=== PATIENT | male | born 1945 | race Caucasian/White ===

== ENCOUNTER → 2016-04-18 | Outpatient (CLI) | payer MEDICARE | LOC: OD 09:49 | PROVIDERS: ATTEND Family Medicine | DX: M50.30 Other cervical disc degeneration, unspecified cervical region (principal); R06.09 Other forms of dyspnea | CPT/HCPCS: 71020; 72050 ==

== ENCOUNTER 2016-04-26 08:32 | Emergency (ER) | payer OTHER, MEDICARE, MEDICAID ==
[2016-04-26] MEDS ORDERED: NORMAL SALINE 1000 ML 1,000 ML IV ONE (09:40)
[2016-04-26] MEDS ORDERED: FAMOTIDINE INJ/PF 20 MG/2 ML SDV IV ONE (09:43)
[2016-04-26] MEDS ORDERED: ONDANSETRON HCL INJ/PF 4 MG/2 ML SDV IV ONE (09:43)
[2016-04-26 09:54] LABS: ABSOLUTE LYMPHOCYTES (AUTO) 1.3 10^3/uL (0.5-4.7); ABSOLUTE MONOCYTES (AUTO) 1.1 10^3/uL (0.1-1.4); BASOPHILS % (AUTO) 0.2 % (0-2); EOSINOPHILS % (AUTO) 0.1 % (0-6); HEMATOCRIT 43.4 % (37.9-51.0); HEMOGLOBIN 14.7 g/dL (13.5-17.0); HGB HCT DIFFERENCE 0.7; LYMPHOCYTES % (AUTO) 8.4 % (13-45); MEAN CORPUSCULAR HEMOGLOBIN 31.8 pg (27.0-33.4); MEAN CORPUSCULAR HGB CONC 33.8 g/dL (32.0-36.0); MEAN CORPUSCULAR VOLUME 94 fl (80-97); MONOCYTES % (AUTO) 7.1 % (3-13); RED BLOOD COUNT 4.61 10^6/uL (4.35-5.55); RED CELL DISTRIBUTION WIDTH 13.5 % (11.5-14.0); SEGMENTED NEUTROPHILS % (AUTO) 84.2 % (42-78); WHITE BLOOD COUNT 15.5 10^3/uL (4.0-10.5)
[2016-04-26 09:57] LABS: APPEARANCE,URINE CLEAR; BILIRUBIN,URINE NEGATIVE (NEGATIVE); GLUCOSE, URINE NEGATIVE (NEGATIVE); KETONES,URINE NEGATIVE (NEGATIVE); LEUKOCYTE ESTERASE,URINE NEGATIVE (NEGATIVE); NITRITE,URINE NEGATIVE (NEGATIVE); PROTEIN,URINE NEGATIVE (NEGATIVE); URINE SPECIFIC GRAVITY 1.009; UROBILINOGEN,URINE NEGATIVE mg/dL (<2.0)
[2016-04-26 10:07] LABS: ALANINE AMINOTRANSFERASE 40 U/L (21-72); ALBUMIN 3.9 g/dL (3.5-5.0); ALKALINE PHOSPHATASE 138 U/L (38-126); ANION GAP 13 (5-19); ASPARTATE AMINO TRANSFERASE 29 U/L (17-59); BILIRUBIN,TOTAL 0.9 mg/dL (0.2-1.3); BLOOD UREA NITROGEN 10 mg/dL (7-20); CALCIUM 10.8 mg/dL (8.4-10.2); CARBON DIOXIDE 26 mmol/L (22-30); CHLORIDE 100 mmol/L (98-107); CREATININE RESULT 0.89 mg/dL (0.52-1.25); GLUCOSE 111 mg/dL (75-110); LIPASE 431.6 U/L (23-300); POTASSIUM 4.9 mmol/L (3.6-5.0); SODIUM 138.8 mmol/L (137-145); TOTAL PROTEIN 7.1 g/dL (6.3-8.2)
[2016-04-26 10:08] LABS: ALCOHOL < 10 mg/dL (NONE DETECTED)
[2016-04-26 10:15] LABS: URINE BARBITURATES SCREEN NEGATIVE; URINE METHADONE SCREEN NEGATIVE; URINE OPIATES LOW UNCONFIRMED POSITIVE; URINE PHENCYCLIDINE SCREEN NEGATIVE
[2016-04-26] MEDS ORDERED: SUCRALFATE SUSP 1 GM/10 ML UDCUP PO ONE (11:40)
--- NOTE | 2016-04-26 11:49 | ER Document Report ---
ED General - General Chief Complaint: Abdominal Pain Stated Complaint: STOMACH CONCERNS TRAVEL OUTSIDE OF THE [place] IN LAST 30 DAYS: No - HPI Patient complains to provider of: abdominal pain Notes: Patient coming in for evaluation arrival quadrant epigastric abdominal pain. Patient has a history gastric cultures and had an upper GI scope performed in February showed multiple gastric erosions and duodenitis gastritis. More likely this was noted to the patient buckner chronic alcohol use. Patient states today that he now drinks only 3 beers a day states he did drink last night but does have increased epigastric right upper quadrant pain. Patient denies any hematemesis denies any melenic stools dark stools. Patient currently is on Protonix states that he is currently running out of his medication. Otherwise patient denies any fevers chills nausea vomiting diarrhea. - Related Data Allergies/Adverse Reactions: No Known Allergies Allergy (Verified 04/26/16 08:45) Past Medical History - Social History Smoking Status: Current Every Day Smoker Chew tobacco use (# tins/day): No Frequency of alcohol use: daily Drug Abuse: None Family History: CAD, Malignancy Patient has suicidal ideation: No Patient has homicidal ideation: No - Past Medical History Cardiac Medical History: Reports: Hx Hypercholesterolemia, Hx Hypertension Pulmonary Medical History: Reports: Hx Bronchitis Denies: Hx Tuberculosis Neurological Medical History: Denies: Hx Seizures Renal/ Medical History: Reports: Hx Benign Prostatic Hyperplasia. 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 - Immunizations Immunizations up to date: Yes Hx Diphtheria, Pertussis, Tetanus Vaccination: No Review of Systems - Review of Systems Constitutional: No symptoms reported EENT: No symptoms reported Cardiovascular: No symptoms reported Respiratory: No symptoms reported Gastrointestinal: Abdominal pain Genitourinary: No symptoms reported Male Genitourinary: No symptoms reported Musculoskeletal: No symptoms reported Skin: No symptoms reported Hematologic/Lymphatic: No symptoms reported Neurological/Psychological: No symptoms reported -: Yes All other systems reviewed and negative Physical Exam - Vital signs Vitals: Temp Pulse Resp BP Pulse Ox 98.5 F 73 20 129/67 H 99 04/26/16 08:41 04/26/16 08:41 04/26/16 08:41 04/26/16 08:41 04/26/16 08:41 Interpretation: Normal - General General appearance: Appears well, Alert - HEENT Head: Normocephalic, Atraumatic Eyes: Normal Pupils: PERRL - Respiratory Respiratory status: No respiratory distress Chest status: Nontender Breath sounds: Normal Chest palpation: Normal - Cardiovascular Rhythm: Regular Heart sounds: Normal auscultation Murmur: No - Abdominal Inspection: Normal Distension: No distension Bowel sounds: Normal Tenderness: Tender - Mild right upper quadrant epigastric tenderness no guarding or rebound. No: McBurney's point, Asencio's sign, Guarding, Rebound Organomegaly: No organomegaly - Back Back: Normal, Nontender - Extremities General upper extremity: Normal inspection, Nontender, Normal color, Normal ROM , Normal temperature General lower extremity: Normal inspection, Nontender, Normal color, Normal ROM , Normal temperature, Normal weight bearing. No: Edd's sign - Neurological Neuro grossly intact: Yes Cognition: Normal Orientation: AAOx4 [place] Coma Scale Eye Opening: Spontaneous [place] Coma Scale Verbal: Oriented [place] Coma Scale Motor: Obeys Commands Alleg[place] Coma Scale Total: 15 Speech: Normal Motor strength normal: LUE, RUE, LLE, RLE Sensory: Normal - Psychological Associated symptoms: Normal affect, Normal mood - Skin Skin Temperature: Warm Skin Moisture: Dry Skin Color: Normal Course - Re-evaluation Re-evalutation: 04/26/16 15:12 Patient had acute abdominal series performed looking for signs free air suggestive of perforation. This was negative. Patient feeling better after he was given passive. Long discussion with patient and family at bedside and reevaluated the patient's need to stop drinking alcohol to gradually taper this down to avoid withdrawals also encouraged patient to avoid foods will cause more GI distress. Patient stated understanding. We'll continue to treat patient with Protonix will also add Carafate. Patient was encouraged follow-up with primary care physician GI referral was also given to the patient. Patient discharged - Vital Signs Vital signs: Temp Pulse Resp BP Pulse Ox 100 F 69 21 H 107/63 96 04/26/16 12:20 04/26/16 12:20 04/26/16 10:01 04/26/16 12:20 02/01/17 12:20 - Laboratory Result Diagrams: 04/26/16 09:30 04/26/16 09:30 Laboratory results interpreted by me: 04/26/16 04/26/16 09:30 09:30 WBC 15.5 H Seg Neutrophils % 84.2 H Lymphocytes % 8.4 L Absolute Neutrophils 13.0 H Glucose 111 H Calcium 10.8 H Alkaline Phosphatase 138 H Lipase 431.6 H Discharge - Discharge Clinical Impression: Alcohol abuse, Epigastric abdominal pain Gastric ulcer Qualifiers: Gastric ulcer chronicity: chronic Gastric ulcer complication status: without hemorrhage or perforation Qualified Code(s): K25.7 - Chronic gastric ulcer without hemorrhage or perforation Condition: Good Disposition: HOME, SELF-CARE Instructions: Abdominal Pain ([facility]), Low-Fat Diet ([facility]), Ulcer ([facility]), Gastroenterology Additional Instructions: Please follow-up with your primary care physician. Please take the medication prescribed. Please abstain from alcohol I would recommend a clear liquid diet for the next 24 hours. Return to the ER symptoms worsen. Prescriptions: Pantoprazole Sodium [Protonix] 40 mg PO BID #60 tablet. Sucralfate [Carafate 1 gm Tablet] 1 gm PO ACHS #120 tablet Referrals: GEORGE GAYTAN DO [Primary Care Provider] - Follow up in 3-5 days
[2016-04-26 12:21] VITALS: BP 107/63
== END 2016-04-26 12:29 | disposition home or self-care (01) ==
LOC: ER 08:32
DX: F10.10 Alcohol abuse, uncomplicated (principal); R10.13 Epigastric pain; K25.7 Chronic gastric ulcer without hemorrhage or perforation; F17.200 Nicotine dependence, unspecified, uncomplicated; E78.00 Pure hypercholesterolemia, unspecified; I10 Essential (primary) hypertension; K21.9 Gastro-esophageal reflux disease without esophagitis
CPT/HCPCS: 99284; 96361; 96374; 96375; 36415; 80307 ×2; 83690; 85025; 80053; 81001; 83605; 74022; J2405; J7030; S0028

== ENCOUNTER 2017-03-25 15:06 | Emergency (ER) | payer OTHER, MEDICARE, MEDICAID ==
--- NOTE | 2017-03-25 15:44 | ER Document Report ---
ED Medical Screen (RME) - General Chief Complaint: Abdominal Distention Stated Complaint: STOMACH PAIN Time Seen by Provider: 03/25/17 15:41 Notes: 71-year-old male patient history alcoholic pancreatitis. Reports abdominal pain for the past 24 hours. Pain is diffuse across his abdomen and some sharp in the right lateral side. States she had normal bowel movement this morning. There is no nausea vomiting or fever. I have greeted and performed a rapid initial assessment of this patient. A comprehensive ED assessment and evaluation of the patient, analysis of test results and completion of the medical decision making process will be conducted by additional ED providers. TRAVEL OUTSIDE OF THE [place] IN LAST 30 DAYS: No - Related Data Allergies/Adverse Reactions: No Known Allergies Allergy (Verified 03/25/17 15:07) Past Medical History - Past Medical History Cardiac Medical History: Reports: Hx Hypercholesterolemia, Hx Hypertension Pulmonary Medical History: Reports: Hx Bronchitis Denies: Hx Tuberculosis Neurological Medical History: Denies: Hx Seizures Renal/ Medical History: Reports: Hx Benign Prostatic Hyperplasia. 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
[2017-03-25 16:42] LABS: ABSOLUTE EOSINOPHILS # (AUTO) 0.1 10^3/uL (0.0-0.6); ABSOLUTE LYMPHOCYTES (AUTO) 2.4 10^3/uL (0.5-4.7); ABSOLUTE MONOCYTES (AUTO) 0.9 10^3/uL (0.1-1.4); ABSOLUTE NEUT (AUTO) 6.7 10^3/uL (1.7-8.2); BASOPHILS % (AUTO) 0.4 % (0-2); EOSINOPHILS % (AUTO) 0.8 % (0-6); HEMATOCRIT 45.7 % (37.9-51.0); HEMOGLOBIN 15.9 g/dL (13.5-17.0); LYMPHOCYTES % (AUTO) 23.4 % (13-45); MEAN CORPUSCULAR HEMOGLOBIN 32.1 pg (27.0-33.4); MEAN CORPUSCULAR HGB CONC 34.8 g/dL (32.0-36.0); MEAN CORPUSCULAR VOLUME 92 fl (80-97); MONOCYTES % (AUTO) 8.8 % (3-13); PLATELET COUNT 186 10^3/uL (150-450); RED BLOOD COUNT 4.95 10^6/uL (4.35-5.55); RED CELL DISTRIBUTION WIDTH 13.7 % (11.5-14.0); SEGMENTED NEUTROPHILS % (AUTO) 66.6 % (42-78); TOTAL CELLS COUNTED % (AUTO) 100 %; WHITE BLOOD COUNT 10.1 10^3/uL (4.0-10.5)
[2017-03-25 16:55] LABS: APPEARANCE,URINE CLEAR; BILIRUBIN,URINE NEGATIVE (NEGATIVE); COLOR,URINE YELLOW; GLUCOSE, URINE NEGATIVE (NEGATIVE); KETONES,URINE NEGATIVE (NEGATIVE); LEUKOCYTE ESTERASE,URINE NEGATIVE (NEGATIVE); NITRITE,URINE NEGATIVE (NEGATIVE); PROTEIN,URINE NEGATIVE (NEGATIVE); URINE SPECIFIC GRAVITY 1.004; UROBILINOGEN,URINE NEGATIVE mg/dL (<2.0)
[2017-03-25 17:03] LABS: ALANINE AMINOTRANSFERASE 150 U/L (21-72); ALBUMIN 4.4 g/dL (3.5-5.0); ALKALINE PHOSPHATASE 181 U/L (38-126); ANION GAP 10 (5-19); ASPARTATE AMINO TRANSFERASE 103 U/L (17-59); BILIRUBIN,DIRECT 0.5 mg/dL (0.0-0.4); BILIRUBIN,TOTAL 1.4 mg/dL (0.2-1.3); BLOOD UREA NITROGEN 15 mg/dL (7-20); CALCIUM 11.2 mg/dL (8.4-10.2); CARBON DIOXIDE 32 mmol/L (22-30); CHLORIDE 97 mmol/L (98-107); GLUCOSE 96 mg/dL (75-110); LIPASE 721.5 U/L (23-300); MAGNESIUM 2.1 mg/dL (1.6-2.3); POTASSIUM 4.3 mmol/L (3.6-5.0); SODIUM 139.4 mmol/L (137-145); TOTAL PROTEIN 7.6 g/dL (6.3-8.2)
[2017-03-25] MEDS ORDERED: LIDOCAINE 2% VISCOUS SOLN 20 ML UDCUP PO ONE (17:18)
[2017-03-25] MEDS ORDERED: SUCRALFATE SUSP 1 GM/10 ML UDCUP PO ONE (17:18)
[2017-03-25] MEDS ORDERED: MAG HYDROX/AL HYDROX/SIMETH SUSP 30 ML UDCUP PO ONE (17:18)
--- NOTE | 2017-03-25 17:19 | ER Document Report ---
ED GI/ - General Chief Complaint: Abdominal Distention Stated Complaint: STOMACH PAIN Time Seen by Provider: 03/25/17 15:41 Notes: Patient is a 71-year-old male presents emergency department complaining of epigastric pain for the past 24 hours. Describes his pain as a burning constant pain in his stomach that does not radiate into his right upper quadrant or into his back. Patient is a chronic alcoholic and drinks approximately 4 to 5 beers a day Past medical history significant for pancreatitis, duodenal gastritis. Today he denies any fever, chills, nausea, vomiting, hematemesis, coffee-ground emesis. Admits to normal bowel movements without any diarrhea. Denies any bright red blood per rectum, dark tarry stools or constipation. He denies any belching or increased flatulence. States that he is supposed to be taking Nexium and Carafate at home but is been noncompliant. Follows with Dr. Hamilton for primary care. TRAVEL OUTSIDE OF THE [place] IN LAST 30 DAYS: No - Related Data Allergies/Adverse Reactions: No Known Allergies Allergy (Verified 03/25/17 15:07) Past Medical History - Social History Smoking Status: Current Every Day Smoker Frequency of alcohol use: 4 beers a day Drug Abuse: None Family History: CAD, Malignancy Patient has suicidal ideation: No Patient has homicidal ideation: No - Past Medical History Cardiac Medical History: Reports: Hx Hypercholesterolemia, Hx Hypertension Pulmonary Medical History: Reports: Hx Bronchitis Denies: Hx Tuberculosis Neurological Medical History: Denies: Hx Seizures Renal/ Medical History: Reports: Hx Benign Prostatic Hyperplasia. 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 LUNGS: Clear to auscultation bilaterally, no wheezes, rales, or rhonchi. No respiratory distress. HEART: Regular rate and rhythm. No murmurs, gallops, or rubs. ABDOMEN: Soft, nondistended, nontender. No guarding, rebound, or rigidity.. Bowel sounds present in all 4 quadrants. EXTREMITIES: Moves all 4 extremities spontaneously. No edema, radial and dorsalis pedis pulses 2/4 bilaterally. No cyanosis. NEUROLOGICAL: Alert and oriented x4. Normal speech. PSYCH: Normal affect, normal mood. SKIN: Warm, dry, normal turgor. No rashes or lesions noted. Course - Re-evaluation Re-evalutation: 03/25/17 19:17 Patient is a 71-year-old male who is hemodynamically stable, no acute distress and afebrile. Presentation today is consistent with gastritis given complete resolution of his symptoms after GI cocktail. Mild elevation in his lipase to 720. At this time, patient is tolerating p.o. without any difficulty and is pain-free. Does not meet inpatient criteria for pancreatitis at this time. Will discharge home with instructions to continue a clear liquid diet for the next 3 days and to follow-up with Dr. Hamilton this week. Patient agrees with plan and is stable for discharge home. - Vital Signs Vital signs: Temp Pulse Resp BP Pulse Ox 99.1 F 65 18 146/70 H 97 03/25/17 15:36 03/25/17 15:36 03/25/17 15:36 03/25/17 15:36 03/25/17 15:36 - Laboratory Result Diagrams: 03/25/17 16:18 03/25/17 16:18 Laboratory results interpreted by me: 03/25/17 03/25/17 16:18 16:18 Chloride 97 L Carbon Dioxide 32 H Creatinine 1.26 H Est GFR (Non-Af Amer) 57 L Calcium 11.2 H Total Bilirubin 1.4 H Direct Bilirubin 0.5 H AST 103 H ALT 150 H Alkaline Phosphatase 181 H Lipase 721.5 H Urine Blood SMALL H Discharge - Discharge Clinical Impression: Elevated lipase, Reflux gastritis Condition: Good Disposition: HOME, SELF-CARE Additional Instructions: Your presentation today is consistent with gastritis as well as mild pancreatitis likely related to your alcohol consumption. It is indicated for you to stop drinking alcohol for it causes irritation of these areas. Please do not stop drinking all at once he should do a gentle decline over the course of a couple of weeks to prevent rapid withdrawal. Over the next couple of days please do a clear liquid diet to allow for your pancreas to rest and heal. Please take your medications as directed and follow-up with her primary care doctor. Please return to the emergency department with any fever, chills, difficulty tolerating anything p.o., any vomit that looks like what coffee grounds or bright red blood. Prescriptions: Sucralfate [Carafate 1 gm Tablet] 1 gm PO ACHS #120 tablet Referrals: GEORGE HAMILTON DO [Primary Care Provider] - 03/30/17
--- NOTE | 2017-03-25 17:20 | RADIOLOGY REPORT (SQ) ---
EXAM DESCRIPTION: ACUTE ABDOMEN SERIES COMPLETED DATE/TIME: 03/25/2017 4:39 pm REASON FOR STUDY: Abdominal pain and swelling,PMH of pancreatitis COMPARISON: April 2016 NUMBER OF VIEWS: Three views. TECHNIQUE: Frontal chest, supine abdomen and upright/decubitus abdomen radiographic images acquired. LIMITATIONS: None. FINDINGS: CHEST: Ill-defined densities are identified along the left lateral chest wall which I mary ot exclude is pleural thickening. Remaining lung arana are clear P FREE AIR: None. No abnormal gas collections. BOWEL GAS PATTERN: Nonobstructive pattern. No dilated loops or air fluid levels. CALCIFICATIONS: No suspicious calcifications. HARDWARE: None in the abdomen. SOFT TISSUES: No gross mass or suggestion of organomegaly. BONES: No acute fracture. No worrisome bone lesions. OTHER: No other significant finding. IMPRESSION: NO RADIOGRAPHIC EVIDENCE FOR ACUTE ABDOMINAL DISEASE. Ill-defined densities along the l eft lateral chest wall which I cannot exclude is a pleural-based process. Other findings as noted ab jaye TECHNICAL DOCUMENTATION: JOB ID: [id number] [employer]- All Rights Reserved
[2017-03-25 19:27] VITALS: BP 131/67
== END 2017-03-25 19:33 | disposition home or self-care (01) ==
LOC: ER 15:06
DX: K29.60 Other gastritis without bleeding (principal); R79.89 Other specified abnormal findings of blood chemistry; K31.89 Other diseases of stomach and duodenum; R10.13 Epigastric pain; F17.200 Nicotine dependence, unspecified, uncomplicated
CPT/HCPCS: 99284; 36415; 83690; 83735; 85025; 80053; 81001; 74022; J3490

== ENCOUNTER → 2017-07-17 | Outpatient (CLI) | payer MEDICARE, MEDICAID ==
--- NOTE | 2017-07-20 08:20 | XCELERA REPORT ---
[address] [address] Lower Extremity Arterial Evaluation Name: HOLLI PANDEY Age: 71 yrs Gender: Male : 1945 Patient Status: Outpatient Patient Location: Study Date: 07/17/2017 08:26 AM Procedure: A color flow and duplex scan of the lower extremity arteries was performed bilaterally with velocity and waveform anaylsis. Ankle brachial indicies performed. Reason For Study: PVD Ordering Physician: EILEEN JON Performed By: Tim Eli Measurements and Calculations Right Left ACCOUNTING MANAGER ASSISTANT CONTROLLER PSV 135.1 143.9 cm/sec Prox PFA PSV -133.6 -202.3 cm/sec Prox SFA PSV 148.5 124.5 cm/sec Mid SFA PSV -116.9 -123.8 cm/sec Dist SFA PSV -81.6 -65.5 cm/sec Prox Pop A PSV 133.4 105.0 cm/sec Dist JERRY PSV 48.8 46.0 cm/sec Dist SENIOR CORPORATE ACCOUNTANT PSV -54.2 49.3 cm/sec Malcolm Pedis PSV 13.0 72.7 cm/sec Right Side Arterial Evaluation Normal velocity and triphasic waveforms noted from the Common Femoral artery to the Posterior Tibial. Biphasic in the Deep Femoral and at the Anterior Tibial artery . Monophasic Dorsalis Pedis. 0-19% stenosis at the Deep Femoral and Anterior Tibial artery. With sequential disease. Ankle Brachial index is 0.9. Left Side Arterial Evaluation Normal velocity and triphasic waveforms noted from the Common Femoral artery to the Femoral. Biphasic in the Deep Femoral and to the infrageniculate vessels. 0-19% stenosis at the Popliteal artery. Ankle Brachial index is 0.9. Interpretation Summary Mild hemodynamically significant lesions in the bilateral lower extremities, on duplex imaging, at rest. : EILEEN JON > Eileen Jon
== END ==
LOC: SP 08:11
PROVIDERS: ATTEND Surgery
DX: I73.9 Peripheral vascular disease, unspecified (principal)
CPT/HCPCS: 93925

== ENCOUNTER → 2017-09-17 | Outpatient (CLI) | payer OTHER ==
--- NOTE | 2017-09-17 10:17 | RADIOLOGY REPORT (SQ) ---
EXAM DESCRIPTION: CT LUNG CANCER SCREENING COMPLETED DATE/TIME: 09/17/2017 8:52 am REASON FOR STUDY: CURRENT SMOKER Has the patient had a Chest CT scan within the past year? Was the patient offered tobacco cessation counseling? Was the patient engaged in shared decision making for this test? Does the patient have signs or symptoms of Lung Cancer? Is the patient a smoker? How many packs per year? How many years since quitting smoking? Patients age: COMPARISON: None. TECHNIQUE: Low Dose CT scan performed of the chest without intravenous contrast for purposes of scre ening for lung cancer. Images reviewed with lung, soft tissue and bone windows. Reconstructed coron al and sagittal MPR images reviewed. All images stored on PACS. All CT scanners at this facility use dose modulation, iterative reconstruction, and/or weight based d osing when appropriate to reduce radiation dose to as low as reasonably achievable (ALARA). [facility]: Dose Right [facility]: CareDose [facility]: Dose Right [facility]: Teradose 4D [facility]: [employer] RADIATION DOSE: CT Rad equipment meets quality standard of care and radiation dose reduction techniq ues were employed. CTDIvol: 2.1 mGy. DLP: 73 mGy-cm. mGy. . LIMITATIONS: No technical limitations. FINDINGS: LUNG NODULES: None REMAINING LUNGS AND PLEURA: Extensive apical pleural scarring and scattered areas of pleural thick ening. No pneumothorax. No scarring or interstitial changes. HILAR AND MEDIASTINAL STRUCTURES: No identified masses. No abnormal nodes. HEART AND VASCULAR STRUCTURES: No aortic aneurysm. No pericardial effusion. No cardiac devices. CORONARY ARTERY CALCIFICATIONS: Marked calcifications. UPPER ABDOMEN, THYROID, BONES, OTHER SOFT TISSUES: No significant findings. IMPRESSION: BENIGN FINDINGS IN THE LUNGS. OTHER FINDINGS ABOVE. LUNGRADS: LUNGRADS: 2 BENIGN APPEARANCE OR BEHAVIOR. NODULES WITH A VERY LOW LIKELIHOOD OF BECOMING A CLINICALLY ACTIVE CANCER DUE TO SIZE OR LACK OF GROWTH. MODIFIER: S CLINICALLY SIGNIFICANT OR POTENTIALLY CLINICALLY SIGNIFICANT FINDINGS. (non lung cancer) RECOMMENDATION: Continue annual screening with LDCT in 12 months. COMMENT: CRITERIA: Solid nodule(s): < 6 mm; new < 4 mm. Part solid nodule(s): < 6 mm total diameter on baseline screening. Non solid nodule(s) (GGN): < 20 mm OR ? 20 and unchanged or slowly growing. Category 3 or 4 modules unchanged for ? 3 months. TECHNICAL DOCUMENTATION: JOB ID: [id number] Quality ID # [id number]: Final reports with documentation of one or more dose reduction techniques (e.g., Au tomated exposure control, adjustment of the mA and/or kV according to patient size, use of iterative reconstruction technique) 2010 [facility] Radiology Reading location - IP/workstation name: [email or web address]
--- NOTE | 2017-09-17 10:18 | RADIOLOGY REPORT (SQ) ---
EXAM DESCRIPTION: U/S ABD AORTIC SCREENING COMPLETED DATE/TIME: 09/17/2017 8:58 am REASON FOR STUDY: CURRENT SMOKER COMPARISON: 2015 TECHNIQUE: Static and dynamic grayscale images acquired of the aorta and stored on PACs. Selected co ammy Doppler and spectral images recorded. LIMITATIONS: None. FINDINGS: AORTIC CALIBER MAXIMAL PROXIMAL: 2.0 cm. MID: 1.8 cm. DISTAL: 1.9 cm. ILIAC DIAMETER Not visualize OTHER: No other significant finding. IMPRESSION: NO ABDOMINAL AORTIC ANEURYSM. COMMENT: Aorta screening examinations categories: Negative - less than 3 cm. TECHNICAL DOCUMENTATION: JOB ID: [id number] [employer]- All Rights Reserved Reading location - IP/workstation name: [email or web address]
== END ==
LOC: RAD 08:02
PROVIDERS: ATTEND Clinical Nurse Specialist Adult Health
DX: Z13.6 Encounter for screening for cardiovascular disorders (principal); F17.210 Nicotine dependence, cigarettes, uncomplicated
CPT/HCPCS: 76706; G0297

== ENCOUNTER → 2018-01-16 | Outpatient (CLI) | payer MEDICARE ==
--- NOTE | 2018-01-16 09:33 | RADIOLOGY REPORT (SQ) ---
EXAM DESCRIPTION: CT SOFT TISSUE NECK WITHOUT COMPLETED DATE/TIME: 01/16/2018 8:01 am REASON FOR STUDY: R59.0 LOCALIZED ENLARGED LYMPH NODES R59.0 LOCALIZED ENLARGED LYMPH NODES COMPARISON: CT lung cancer screening 09/17/2017 Cervical spine plain films 04/18/2016 TECHNIQUE: Noncontrast scanning from skull base through lung apices with review of bone, soft tissue and lung windows. Reconstructed coronal and sagittal MPR images reviewed. All images stored on PAC S. All CT scanners at this facility use dose modulation, iterative reconstruction, and/or weight based d osing when appropriate to reduce radiation dose to as low as reasonably achievable (ALARA). [facility]: Dose Right [facility]: CareDose [facility]: Dose Right [facility]: Teradose 4D [facility]: [employer] RADIATION DOSE: 23.5 mGy. LIMITATIONS: None. FINDINGS: SKULL BASE: Intact. MAJOR SALIVARY GLANDS: No solid or cystic masses. No inflammatory changes. LYMPHADENOPATHY: No adenopathy. No pathologically enlarged lymph nodes are identified MUCOSAL MASSES OR ASYMMETRY: No mucosal masses or asymmetry. LARYNX/CORDS: No abnormal findings. LUNG APICES: Mild biapical lung parenchymal scarring is present, similar compared to 09/17/2017 BONES: Intact. THYROID: Normal size. No masses. PARANASAL SINUSES: Clear. OTHER: No other significant finding. IMPRESSION: NO SIGNIFICANT FINDING IN THE SOFT TISSUES OF THE NECK. TECHNICAL DOCUMENTATION: JOB ID: [id number] Quality ID # [id number]: Final reports with documentation of one or more dose reduction techniques (e.g., Au tomated exposure control, adjustment of the mA and/or kV according to patient size, use of iterative reconstruction technique) 2010 [employer]- All Rights Reserved Reading location - IP/workstation name: [email or web address]
== END ==
LOC: RAD 07:40
PROVIDERS: ATTEND Otolaryngology
DX: R59.0 Localized enlarged lymph nodes (principal)
CPT/HCPCS: 70490

== ENCOUNTER 2018-05-02 07:23 | Emergency (ER) | payer MEDICARE, MEDICAID ==
[2018-05-02] MEDS ORDERED: ASPIRIN 81 MG TABLET, CHEWABLE PO ONE (10:26)
[2018-05-02] MEDS ORDERED: OXYCODONE HCL SR 10 MG TABLET PO ONE (10:26)
[2018-05-02 11:12] LABS: ABSOLUTE LYMPHOCYTES (AUTO) 1.3 10^3/uL (0.5-4.7); ABSOLUTE MONOCYTES (AUTO) 0.7 10^3/uL (0.1-1.4); ABSOLUTE NEUT (AUTO) 3.3 10^3/uL (1.7-8.2); BASOPHILS % (AUTO) 0.4 % (0-2); EOSINOPHILS % (AUTO) 0.2 % (0-6); HEMATOCRIT 43.1 % (37.9-51.0); LYMPHOCYTES % (AUTO) 24.8 % (13-45); MEAN CORPUSCULAR HEMOGLOBIN 31.2 pg (27.0-33.4); MEAN CORPUSCULAR HGB CONC 34.8 g/dL (32.0-36.0); MEAN CORPUSCULAR VOLUME 90 fl (80-97); PLATELET COUNT 126 10^3/uL (150-450); RED BLOOD COUNT 4.81 10^6/uL (4.35-5.55); SEGMENTED NEUTROPHILS % (AUTO) 61.6 % (42-78); TOTAL CELLS COUNTED % (AUTO) 100 %; WHITE BLOOD COUNT 5.4 10^3/uL (4.0-10.5)
--- NOTE | 2018-05-02 11:13 | EKG REPORT ---
SEVERITY:- ABNORMAL ECG - SINUS RHYTHM VENTRICULAR BIGEMINY BORDERLINE R WAVE PROGRESSION, ANTERIOR LEADS : Confirmed by: Minoo Marin 02-May-2018 11:11:49
[2018-05-02 11:26] LABS: ALANINE AMINOTRANSFERASE 60 U/L (21-72); ALBUMIN 4.2 g/dL (3.5-5.0); ALKALINE PHOSPHATASE 187 U/L (38-126); ANION GAP 11 (5-19); ASPARTATE AMINO TRANSFERASE 41 U/L (17-59); BILIRUBIN,DIRECT 0.3 mg/dL (0.0-0.4); BILIRUBIN,TOTAL 0.7 mg/dL (0.2-1.3); BLOOD UREA NITROGEN 11 mg/dL (7-20); CALCIUM 10.1 mg/dL (8.4-10.2); CARBON DIOXIDE 29 mmol/L (22-30); CHLORIDE 102 mmol/L (98-107); CREATINE KINASE 41 U/L (55-170); GLUCOSE 105 mg/dL (75-110); POTASSIUM 3.5 mmol/L (3.6-5.0); SODIUM 142.2 mmol/L (137-145); TOTAL PROTEIN 7.3 g/dL (6.3-8.2)
--- NOTE | 2018-05-02 11:28 | RADIOLOGY REPORT (SQ) ---
EXAM DESCRIPTION: CHEST SINGLE VIEW COMPLETED DATE/TIME: 05/02/2018 11:01 am REASON FOR STUDY: chest pain COMPARISON: Chest film 03/25/2017, 09/10/2012 EXAM PARAMETERS: NUMBER OF VIEWS: One view. TECHNIQUE: Single frontal radiographic view of the chest acquired. RADIATION DOSE: NA LIMITATIONS: None. FINDINGS: LUNGS AND PLEURA: No opacities, masses or pneumothorax. No pleural effusion. MEDIASTINUM AND HILAR STRUCTURES: No masses. Contour normal. HEART AND VASCULAR STRUCTURES: Heart normal in size. Normal vasculature. BONES: Old healed left lateral rib fractures HARDWARE: None in the chest. OTHER: No other significant finding. IMPRESSION: NO ACUTE RADIOGRAPHIC FINDING IN THE CHEST. TECHNICAL DOCUMENTATION: JOB ID: [id number] [employer]- All Rights Reserved Reading location - IP/workstation name: [email or web address]
[2018-05-02 11:39] LABS: CREATINE KINASE MB 0.26 ng/mL (<4.55); TROPONIN I < 0.012 ng/mL
[2018-05-02 13:08] VITALS: BP 134/72
--- NOTE | 2018-05-02 16:26 | ER Document Report ---
Entered by LUC CHAPMAN SCRIBE 05/02/18 1025 Acting as scribe for:AMERICA ELDER DO ED General - General Chief Complaint: Chest Pain Stated Complaint: CHEST PAIN Time Seen by Provider: 05/02/18 10:00 Primary Care Provider: GEORGE GAYTAN DO [Primary Care Provider] - Follow up as needed Mode of Arrival: Ambulatory Information source: Patient Notes: 72-year-old male who presents to the emergency department today with complaints of a rash to the right upper extremity, right chest, and right upper back for the last few days. Patient has had associated right sided neck and shoulder pain with this rash. Patient also complains of chest pain. Patient states he has never had an NH but his brother had one at age 43. Patient states he has hydrocodone and oxymorphone at home for pain but has not taken any since yesterday. TRAVEL OUTSIDE OF THE [place] IN LAST 30 DAYS: No - Related Data Allergies/Adverse Reactions: No Known Allergies Allergy (Verified 03/25/17 15:07) Past Medical History - General Information source: Patient - Social History Smoking Status: Current Every Day Smoker Cigarette use (# per day): Yes Chew tobacco use (# tins/day): No Frequency of alcohol use: Heavy Drug Abuse: None Family History: CAD, Malignancy Patient has suicidal ideation: No Patient has homicidal ideation: No - Past Medical History Cardiac Medical History: Reports: Hx Hypercholesterolemia, Hx Hypertension Pulmonary Medical History: Reports: Hx Bronchitis Renal/ Medical History: Reports: Hx Benign Prostatic Hyperplasia GI Medical History: Reports: Hx Gastroesophageal Reflux Disease, Hx Pancreatitis Psychiatric Medical History: Reports: Hx Depression Past Surgical History: Reports: Hx Abdominal Surgery - 3 months old, hernia repair, SBO at , Hx Bowel Surgery - "alot", Hx Herniorrhaphy, Other - 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 - Immunizations Immunizations up to date: Yes Hx Diphtheria, Pertussis, Tetanus Vaccination: No Review of Systems - Review of Systems Constitutional: No symptoms reported EENT: No symptoms reported Cardiovascular: See HPI, Chest pain Respiratory: See HPI, Short of breath Gastrointestinal: No symptoms reported Genitourinary: No symptoms reported Male Genitourinary: No symptoms reported Musculoskeletal: See HPI, Joint pain - right shoulder, Neck pain Skin: No symptoms reported Hematologic/Lymphatic: See HPI, Other - Rash over right chest/back/arm Neurological/Psychological: No symptoms reported -: Yes All other systems reviewed and negative Physical Exam - Vital signs Vitals: Temp Pulse Resp BP Pulse Ox 99.2 F 78 20 126/71 H 96 05/02/18 07:41 05/02/18 07:41 05/02/18 07:41 05/02/18 07:41 05/02/18 07:41 - Notes Notes: PHYSICAL EXAM GENERAL: Alert, interacts well. Appears uncomfortable. HEAD: Normocephalic, atraumatic. EYES: Pupils equal, round, and reactive to light. Extraocular movements intact. ENT: Oral mucosa moist, tongue midline. NECK: Full range of motion. Supple. Trachea midline. LUNGS: Clear to auscultation bilaterally, no wheezes, rales, or rhonchi. No respiratory distress. HEART: Regular rate and rhythm. No murmurs, gallops, or rubs. ABDOMEN: Soft, non-tender. Non-distended. Bowel sounds present in all 4 quadran ts. No guarding, rigidity, or rebound. EXTREMITIES: Moves all 4 extremities spontaneously. No edema, radial and dorsalis pedis pulses 2/4 bilaterally. No cyanosis. NEUROLOGICAL: Alert and oriented x3. Normal speech. PSYCH: Normal affect, normal mood. SKIN: Erythematous, vesicular, dermatomal rash in the T2 distribution on the right chest, dorsal arm, and upper back. Does not cross midline. Course - Re-evaluation Re-evalutation: 05/02/18 12:50 CBC shows mild thrombocytopenia with platelet count of 126 otherwise unremarkable, CMP grossly unremarkable mildly low sodium at potassium at 3.5, cardiac enzymes negative, chest x-ray unremarkable.. EKG has some poor R wave progression but is nonischemic, there are PVCs. No signs of acute infarct. Presentation is consistent with shingles however cardiac workup was undertaken given the fact that he does have several risk factors for coronary artery disease, he does have some pleuritic chest pain and his age alone is an independent risk factor for coronary artery disease. Pain has been going on constantly for at least 3 days, troponin is negative, EKG is nonischemic. Fannie ent does not read need a repeat set of cardiac enzymes. Patient will be discharged home. Patient will get be given steroids, Neurontin and antivirals. Asked to follow-up with primary care physician in the next several days. - Vital Signs Vital signs: Temp Pulse Resp BP Pulse Ox 98.5 F 78 17 134/72 H 95 05/02/18 13:17 05/02/18 07:41 05/02/18 13:01 05/02/18 13:01 05/02/18 13:01 - Laboratory Result Diagrams: 05/02/18 10:50 05/02/18 10:50 Laboratory results interpreted by me: 05/02/18 05/02/18 10:50 10:50 RDW 15.0 H Plt Count 126 L Potassium 3.5 L Alkaline Phosphatase 187 H Creatine Kinase 41 L - EKG Interpretation by Me Additional EKG results interpreted by me: 05/02/18 12:57 EKG shows sinus rhythm at a rate of 77 with some PVCs, occasional ventricular bigeminy, no ST segment elevations or depressions, no T wave inversions, there is some T wave flattening noted in V2 per my interpretation. Discharge - Discharge Clinical Impression: Herpes zoster Qualifiers: Herpes zoster complications: without complications Qualified Code(s): B02.9 - Zoster without complications Condition: Stable Disposition: HOME, SELF-CARE Additional Instructions: Shingles You have shingles. Shingles is caused by the chicken pox virus, The virus has been surviving dormant in a nerve cell since you had chicken pox years ago. The virus has spread down a nerve root to reach the skin. Typically, an band-like area of pain and skin sensitivity develops, then small blisters erupt in the area. Shingles lasts two or three weeks, but sometimes leaves persistent pain. You are contagious -- you can give children chicken pox. But you can't give anyone shingles. Antiviral medicines (such as acyclovir or famciclovir) can help, but the rash usually worsens for about a week. Pain medication is often given if the area hurts. Antihistamines such as Benadryl may be necessary for itching if it does not respond to soda baths and calamine lotion. Sometimes cortisone medicine or nerve-block shots are necessary if pain is severe. If the area remains severely painful as the sores heal, or if you suspect an infection developing in the sores, see your doctor. Prescriptions: Acyclovir [Zovirax 800 mg Tablet] 800 mg PO 5XD #50 tab Gabapentin [Neurontin 100 mg Capsule] 100 mg PO Q12 #30 capsule Prednisone [Deltasone 10 mg Tablet] 10 mg PO ASDIR PRN #21 tablet PRN Reason: Referrals: GEORGE GAYTAN DO [Primary Care Provider] - Follow up as needed Scribe Attestation: 05/02/18 16:25 I personally performed the services described in the documentation, reviewed and edited the documentation which was dictated to the scribe in my presence, and it accurately records my words and actions. I personally performed the services described in the documentation, reviewed and edited the documentation which was dictated to the scribe in my presence, and it accurately records my words and actions.
== END 2018-05-02 13:18 | disposition home or self-care (01) ==
LOC: ER 07:23
DX: B02.9 Zoster without complications (principal); R07.9 Chest pain, unspecified; R21 Rash and other nonspecific skin eruption; F17.210 Nicotine dependence, cigarettes, uncomplicated; M54.2 Cervicalgia; M25.511 Pain in right shoulder; E78.00 Pure hypercholesterolemia, unspecified; I10 Essential (primary) hypertension
CPT/HCPCS: 93005; 99283; 36415; 82553; 82550; 85025; 80053; 84484; 71045; 93010; A9270 ×2

== ENCOUNTER → 2018-06-19 | Outpatient (CLI) | payer MEDICARE ==
[2018-06-19 10:36] LABS: HEMATOCRIT 42.7 % (37.9-51.0); HEMOGLOBIN 14.9 g/dL (13.5-17.0); MEAN CORPUSCULAR HEMOGLOBIN 30.4 pg (27.0-33.4); MEAN CORPUSCULAR HGB CONC 34.9 g/dL (32.0-36.0); MEAN CORPUSCULAR VOLUME 87 fl (80-97); PLATELET COUNT 165 10^3/uL (150-450); RED BLOOD COUNT 4.89 10^6/uL (4.35-5.55); RED CELL DISTRIBUTION WIDTH 14.9 % (11.5-14.0); WHITE BLOOD COUNT 6.4 10^3/uL (4.0-10.5)
[2018-06-19 11:08] LABS: ALANINE AMINOTRANSFERASE 21 U/L (21-72); ALBUMIN 4.2 g/dL (3.5-5.0); ALKALINE PHOSPHATASE 146 U/L (38-126); ANION GAP 14 (5-19); ASPARTATE AMINO TRANSFERASE 17 U/L (17-59); BILIRUBIN,DIRECT 0.4 mg/dL (0.0-0.4); BILIRUBIN,TOTAL 0.8 mg/dL (0.2-1.3); BLOOD UREA NITROGEN 9 mg/dL (7-20); CALCIUM 10.7 mg/dL (8.4-10.2); CARBON DIOXIDE 24 mmol/L (22-30); CHLORIDE 102 mmol/L (98-107); GLUCOSE 114 mg/dL (75-110); POTASSIUM 3.5 mmol/L (3.6-5.0); SODIUM 140.1 mmol/L (137-145); TOTAL PROTEIN 7.6 g/dL (6.3-8.2); TRIGLYCERIDES 159 mg/dL (<150)
[2018-06-19 11:19] LABS: DIRECT LDL 145 mg/dL (<100)
[2018-06-19 11:20] LABS: VLDL CHOLESTEROL 31.8 mg/dL (10-31)
== END ==
LOC: LAB 10:19
PROVIDERS: ATTEND Internal Medicine Cardiovascular Disease
DX: I48.0 Paroxysmal atrial fibrillation (principal); F10.29 Alcohol dependence with unspecified alcohol-induced disorder; I10 Essential (primary) hypertension
CPT/HCPCS: 36415; 80048; 80061; 80076; 83735; 84443; 85027

== ENCOUNTER 2018-07-05 19:34 | Inpatient (IN) | payer MEDICARE ==
[2018-07-05] MEDS ORDERED: NORMAL SALINE 1000 ML 1,000 ML IV ONE (19:51)
--- NOTE | 2018-07-05 19:54 | ER Document Report ---
ED General - General Chief Complaint: Altered Mental Status Stated Complaint: PAIN ALL OVER Time Seen by Provider: 07/05/18 19:45 Cannot obtain history due to: Altered mental status Notes: Patient is a 72-year-old male with a past medical history of paroxysmal atrial fibrillation, hypertension, hyperlipidemia, chronic smoker, sent by EMS due to altered mental status. EMS reports that family apparently contacted 911 as they were concerned that the patient was not acting like himself. Apparently this started 3 days ago. Patient himself is unable to provide any meaningful history. History is severely limited secondary to lack of any available historian on initial assessment. TRAVEL OUTSIDE OF THE [place] IN LAST 30 DAYS: No - Related Data Allergies/Adverse Reactions: No Known Allergies Allergy (Verified 07/05/18 21:30) Past Medical History - General Information source: Emergency Med Personnel Cannot obtain history due to: Altered mental status - Social History Smoking Status: Current Every Day Smoker Frequency of alcohol use: None Drug Abuse: None Lives with: Alone Family History: CAD, Malignancy - Past Medical History Cardiac Medical History: Reports: Hx Hypercholesterolemia, Hx Hypertension Pulmonary Medical History: Reports: Hx Bronchitis Denies: Hx Tuberculosis Neurological Medical History: Denies: Hx Seizures Renal/ Medical History: Reports: Hx Benign Prostatic Hyperplasia. 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 Seems confused. HEAD: Atraumatic, normocephalic. EYES: Pupils equal round and reactive to light, extraocular movements intact, s clera anicteric, conjunctiva are normal. ENT: nares patent, oropharynx clear without exudates. Moderate dry mucous membranes. NECK: Normal range of motion, supple without lymphadenopathy LUNGS: Breath sounds clear to auscultation bilaterally and equal. No wheezes rales or rhonchi. HEART: Irregular regular rate and rhythm without murmurs ABDOMEN: Soft, nontender, normoactive bowel sounds. No guarding, no rebound. No masses appreciated. EXTREMITIES: Normal range of motion, no pitting or edema. No cyanosis. NEUROLOGICAL: Face symmetric. Tongue protrudes midline. Extraocular motions intact. Pupils are 2 mm and equally reactive. Appears to have both a dense expressive and receptive aphasia. See course documentation for more neuro assessment detail. 5 out of 5 strength in both the distal and proximal upper and lower extremities bilaterally. Sensation is grossly intact throughout. Gait deferred. PSYCH: Alert, oriented only to person SKIN: Warm, Dry, normal turgor, no rashes or lesions noted. Course - Re-evaluation Re-evalutation: 07/05/18 19:52 I assessed this patient immediately at time of arrival. Documentation is somewhat delayed secondary to this. The patient presents with global confusion versus dense expressive and receptive aphasia. He states that it is 1945, the month is October. Unable to identify the president. Does know his name without any apparent difficulty. When it came to identification of objects the patient continued to repeat the color of the object that I would hold up but not actually identify the object. As an example I held up a blue pen and he continued to state that it was blue despite being asked in a multitude of different ways to identify the actual item itself. He was also unable to identify the function of the object. I then held the piece of paper and he continued to state that it was white but could not identify again what the actual object itself. The patient was delayed in following basic commands such as giving thumbs up or wiggling his feet although after multiple redirections was able to complete this in all 4 extremities. The patient had 5 out of 5 biceps and triceps strength bilaterally 5 out of 5 both distally and proximally in bilateral lower extremities. Face symmetric. No cranial nerve deficit. No facial droop. Patient is apparently being treated for herpes zoster, has been on treatment for the past 3 months based on EMS report. A herpes encephalopathy would be a consideration although the patient does not presented typical global sedated or obtunded fashion that one would anticipate. Possibility of an acute stroke isolated to the language center given what appears to be a dense receptive and expressive aphasia. CT scan of the head does not history any evidence of mass lesion or intra-cranial bleed. Will obtain broad laboratory workup, urinalysis, chest x-ray, begin IV fluid resuscitation as the patient jhaveri s appear visibly dehydrated and reassess the patient. He is in guarded condition, will be reassessed at regular intervals. 07/05/18 21:24 On reassessment the patient's neurologic exam remains overall unchanged. CT of the head unremarkable. Labs unremarkable. Chest x-ray is clear. He continues to have significant difficulty with receiving and expressing language. He did better with naming objects but was having difficulty following basic commands. His brother and sister both at the bedside. I spent 20-25 minutes updating them on care plan. At this point plan is to obtain MRI if this does not show any evidence of an acute stroke which is my primary differential at this time will proceed with lumbar puncture for definitive exclusion of a herpes encephalitis. Patient remains in guarded condition, will continue to reassess. 07/05/18 23:19 I spent an additional 30 minutes at the bedside with 6 different family members going over the patient's diagnosis on MRI may also discussed MRI results with the radiologist. Patient has multifocal strokes throughout the left cerebral hemisphere. Continues to have a dense expressive and receptive aphasia. No other motor or exam findings. Did discuss the case with Dr. Moses who has accepted the patient for admission to [facility]. Patient has been given a dose of aspirin. 07/06/18 04:24 - Vital Signs Vital signs: Temp Pulse Resp BP Pulse Ox 97.9 F 70 10 L 113/67 94 07/06/18 03:12 07/06/18 04:00 07/06/18 04:00 07/06/18 04:00 07/06/18 04:00 - Laboratory Result Diagrams: 07/05/18 19:14 07/05/18 19:14 Laboratory results interpreted by me: 07/05/18 07/05/18 07/05/18 19:14 19:14 23:46 Hgb 13.4 L RDW 15.7 H Sodium 136.9 L Potassium 3.1 L Direct Bilirubin 0.5 H Alkaline Phosphatase 128 H Creatine Kinase 45 L - Diagnostic Test Radiology reviewed: Image reviewed, Reports reviewed Radiology results interpreted by me: 07/05/18 23:19 MRI head: Multiple infarcts on the left side of the brain CT head: No acute intracranial bleed or mass Critical Care Note - Critical Care Note Total time excluding time spent on procedures (mins): 78 Comments: Critical care time spent obtaining history from patient or surrogate, discussions with consultants, development of treatment plan with patient or surrogate, evaluation of patient's response to treatment, examination of patient, ordering and performing treatments and interventions, ordering and review of laboratory studies, re-evaluation of patient's condition, ordering and review of radiographic studies and review of old charts Discharge - Discharge Clinical Impression: Combined receptive and expressive aphasia, Acute ischemic multifocal multiple vascular territories stroke Condition: Fair Disposition: ADMITTED INPATIENT Admitting Provider: Josué (Hospitalist) Unit Admitted: [facility]
[2018-07-05 19:57] LABS: ABSOLUTE LYMPHOCYTES (AUTO) 2.4 10^3/uL (0.5-4.7); ABSOLUTE MONOCYTES (AUTO) 0.7 10^3/uL (0.1-1.4); ABSOLUTE NEUT (AUTO) 4.2 10^3/uL (1.7-8.2); BASOPHILS % (AUTO) 0.5 % (0-2); EOSINOPHILS % (AUTO) 0.7 % (0-6); HEMATOCRIT 38.5 % (37.9-51.0); HEMOGLOBIN 13.4 g/dL (13.5-17.0); LYMPHOCYTES % (AUTO) 32.5 % (13-45); MEAN CORPUSCULAR HEMOGLOBIN 30.5 pg (27.0-33.4); MEAN CORPUSCULAR HGB CONC 34.7 g/dL (32.0-36.0); MEAN CORPUSCULAR VOLUME 88 fl (80-97); MONOCYTES % (AUTO) 9.5 % (3-13); PLATELET COUNT 173 10^3/uL (150-450); RED BLOOD COUNT 4.38 10^6/uL (4.35-5.55); RED CELL DISTRIBUTION WIDTH 15.7 % (11.5-14.0); SEGMENTED NEUTROPHILS % (AUTO) 56.8 % (42-78); TOTAL CELLS COUNTED % (AUTO) 100 %; WHITE BLOOD COUNT 7.3 10^3/uL (4.0-10.5)
--- NOTE | 2018-07-05 20:04 | RADIOLOGY REPORT (SQ) ---
EXAM DESCRIPTION: CT HEAD WITHOUT COMPLETED DATE/TIME: 07/05/2018 7:50 pm REASON FOR STUDY: STROKE ALERT COMPARISON: None. TECHNIQUE: Axial images acquired through the brain without intravenous contrast. Images reviewed wi th bone, brain and subdural windows. Additional sagittal and coronal reconstructions were generated. Images stored on PACS. All CT scanners at this facility use dose modulation, iterative reconstruction, and/or weight based d osing when appropriate to reduce radiation dose to as low as reasonably achievable (ALARA). [facility]: Dose Right [facility]: CareDose [facility]: Dose Right [facility]: Teradose 4D [facility]: Carista App RADIATION DOSE: mGy. LIMITATIONS: None. FINDINGS: VENTRICLES: Normal size and contour. CEREBRUM: No masses. No hemorrhage. No midline shift. No evidence for acute infarction. Normal gra y/white matter differentiation. No areas of low density in the white matter. CEREBELLUM: No masses. No hemorrhage. No alteration of density. No evidence for acute infarction. EXTRAAXIAL SPACES: No fluid collections. No masses. ORBITS AND GLOBE: No intra- or extraconal masses. Normal contour of globe without masses. CALVARIUM: No fracture. PARANASAL SINUSES: No fluid or mucosal thickening. SOFT TISSUES: No mass or hematoma. OTHER: No other significant finding. IMPRESSION: NORMAL BRAIN CT WITHOUT CONTRAST. EVIDENCE OF ACUTE STROKE: NO. COMMENT: Pertinent positive or negative findings of the imaging study reported as a CRITICAL EXAM laura SHEFFIELD MD at19:57 on 07/05/2018. Category of Critical Exam: Stroke alert Quality ID # [id number]: Final reports with documentation of one or more dose reduction techniques (e.g., Au tomated exposure control, adjustment of the mA and/or kV according to patient size, use of iterative reconstruction technique) TECHNICAL DOCUMENTATION: JOB ID: [id number] [employer]- All Rights Reserved Reading location - IP/workstation name: [email or web address]
--- NOTE | 2018-07-05 20:04 | RADIOLOGY REPORT (SQ) ---
EXAM DESCRIPTION: CHEST SINGLE VIEW COMPLETED DATE/TIME: 07/05/2018 7:50 pm REASON FOR STUDY: STROKE ALERT COMPARISON: 05/02/2018 EXAM PARAMETERS: NUMBER OF VIEWS: One view. TECHNIQUE: Single frontal radiographic view of the chest acquired. RADIATION DOSE: NA LIMITATIONS: None. FINDINGS: LUNGS AND PLEURA: No opacities, masses or pneumothorax. No pleural effusion. MEDIASTINUM AND HILAR STRUCTURES: No masses. Contour normal. HEART AND VASCULAR STRUCTURES: Heart normal in size. Normal vasculature. BONES: No acute findings. HARDWARE: None in the chest. OTHER: No other significant finding. IMPRESSION: NO ACUTE RADIOGRAPHIC FINDING IN THE CHEST. TECHNICAL DOCUMENTATION: JOB ID: [id number] [employer]- All Rights Reserved Reading location - IP/workstation name: [email or web address]
[2018-07-05 20:16] LABS: ALANINE AMINOTRANSFERASE 24 U/L (21-72); ALBUMIN 3.9 g/dL (3.5-5.0); ALKALINE PHOSPHATASE 128 U/L (38-126); ANION GAP 11 (5-19); ASPARTATE AMINO TRANSFERASE 27 U/L (17-59); BILIRUBIN,DIRECT 0.5 mg/dL (0.0-0.4); BILIRUBIN,TOTAL 1.1 mg/dL (0.2-1.3); BLOOD UREA NITROGEN 9 mg/dL (7-20); CALCIUM 10.2 mg/dL (8.4-10.2); CARBON DIOXIDE 23 mmol/L (22-30); CHLORIDE 103 mmol/L (98-107); GLUCOSE 98 mg/dL (75-110); POTASSIUM 3.1 mmol/L (3.6-5.0); SODIUM 136.9 mmol/L (137-145); TOTAL PROTEIN 7.1 g/dL (6.3-8.2)
[2018-07-05 20:17] LABS: ALCOHOL < 10 mg/dL (NONE DETECTED)
[2018-07-05 21:29] LABS: APPEARANCE,URINE CLEAR; BILIRUBIN,URINE NEGATIVE (NEGATIVE); COLOR,URINE YELLOW; GLUCOSE, URINE NEGATIVE (NEGATIVE); KETONES,URINE NEGATIVE (NEGATIVE); LEUKOCYTE ESTERASE,URINE NEGATIVE (NEGATIVE); NITRITE,URINE NEGATIVE (NEGATIVE); PROTEIN,URINE NEGATIVE (NEGATIVE); URINE SPECIFIC GRAVITY 1.004; UROBILINOGEN,URINE NEGATIVE mg/dL (<2.0)
--- NOTE | 2018-07-05 22:34 | RADIOLOGY REPORT (SQ) ---
EXAM DESCRIPTION: MR BRAIN WITHOUT IV CONTRAST COMPLETED DATE/TME: 07/05/2018 20:24 CLINICAL HISTORY: 72 years, Male, word finding difficulties, ams COMPARISON: CT head performed earlier the same day TECHNIQUE: Multiplanar, multisequence MR images of the head were obtained without the use of intravenous contrast. Images stored on PACS. LIMITATIONS: None. FINDINGS: Midline structures show no suspicious abnormality. Evaluation of the brain parenchyma reveals areas of diffusion restriction located about the left anterior temporal lobe, left squires radiata, left insular region, and left posterior temporal lobe, and left frontal and parietal lobes. Superimposed mild periventricular and patchy subcortical white matter signal alteration is noted. Remote lacunar infarcts are noted about the right cerebellar hemisphere. The ventricles and sulcal spaces are mildly enlarged. No extra-axial fluid is identified. Susceptibility weighted images reveal no foci of susceptibility artifact. Assessment of the intracranial arterial and venous flow voids reveals mild hyperintense T1 signal located about the left M2 segment, raising the possibility of intraluminal thrombus.. Globes and orbits show no suspicious abnormality. Paranasal sinuses and mastoid air cells are overall clear. However, the bilateral mastoid air cells are underdeveloped. IMPRESSION: Findings compatible with multifocal acute infarcts throughout the left cerebral hemisphere in an MCA distribution, as above described. No evidence of significant midline shift, mass effect, or intracranial hemorrhage. Hyperintense T1 signal located about the left M2 segment raises the possibility of intraluminal thrombus at this location. copyright 2010 [employer]- All Rights Reserved
[2018-07-05] MEDS ORDERED: ASPIRIN 81 MG TABLET, CHEWABLE PO ONE (22:42)
[2018-07-05] MEDS ORDERED: MAGNESIUM HYDROXIDE SUSP 30 ML UDCUP PO PRN (23:19)
[2018-07-05] MEDS ORDERED: POTASSIUM CHLORIDE 10 MEQ CAPSULE.ER PO ONE (23:24)
[2018-07-05] MEDS ORDERED: NORMAL SALINE 1000 ML 1,000 ML IV SCH (23:30)
[2018-07-05] MEDS ORDERED: ENOXAPARIN SODIUM INJ 60 MG/0.6 ML DISP.SYRIN SUBCUT ONE (23:45)
[2018-07-06] MEDS: GABAPENTIN 100 MG CAPSULE PO SCH ×3 (00:11→21:54)
[2018-07-06 00:18] LABS: CREATINE KINASE MB 0.31 ng/mL (<4.55)
[2018-07-06 00:22] LABS: TROPONIN I < 0.012 ng/mL
[2018-07-06] MEDS ORDERED: NORMAL SALINE 1000 ML 1,000 ML IV ONE (02:15)
[2018-07-06] MEDS ORDERED: THIAMINE HCL 100 MG TABLET PO ONE (04:28)
[2018-07-06] MEDS ORDERED: FOLIC ACID INJ 5 MG/1 ML 10 ML VIAL IV PRN (04:35)
[2018-07-06] MEDS ORDERED: THIAMINE HCL INJ 200 MG/2 ML VIAL IV PRN (04:36)
--- NOTE | 2018-07-06 04:37 | PDOC H&P ---
History of Present Illness Admission Date/PCP: 07/05/18 23:57 GEORGE GAYTAN DO Patient complains of: Altered mental status History of Present Illness: HOLLI PANDEY is a 72 year old male with a past medical history of atrial fibrillation without anticoagulation, dyslipidemia, hypertension, zoster, chronic bronchitis, pancreatitis and alcohol dependence. Patient presents to the emergency room after 2 days of altered mental status described as confusion, difficulty with speech and understanding. In the emergency room he has hypotension, expressive and receptive aphasia, MRI significant for acute and subacute left-sided CVA. He receives aspirin and referred to the hospitalist for admission. 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 Social History Information Source: Relative Lives with: Alone Smoking Status: Current Every Day Smoker Cigarettes Packs Per Day: 2 Number of Years Smokin Last Time Smoked: 07-04-2018 Frequency of Alcohol Use: Heavy Hx Recreational Drug Use: No Drugs: None Hx Prescription Drug Abuse: No - Advance Directive Resuscitation Status: Full Code Family History Family History: CAD, Malignancy Parental Family History Reviewed: Yes Children Family History Reviewed: Yes Sibling(s) Family History Reviewed.: Yes Medication/Allergy Home Medications: Atorvastatin Calcium 20 mg PO DAILY 03/23/16 Capsaicin [Zostrix Hp] 1 applic TP QID 03/23/16 Docusate Sodium [Colace 100 mg Capsule] 100 mg PO HSP PRN 03/23/16 Folic Acid 1 mg PO DAILY 03/23/16 Gabapentin 600 mg PO Q12 03/23/16 Hydrocodone/Acetaminophen [[place] 10-325 mg Tablet] 1 tab PO Q4HP PRN 03/23/16 Morphine Sulfate [Morphine Sulfate ER] 15 mg PO Q8 03/23/16 Polyethylene Glycol 3350 [Miralax Powder 17 gm/Packet] 17 gm PO DAILY 03/23/16 Sertraline HCl [Zoloft] 25 mg PO DAILY 03/23/16 Tamsulosin HCl [Flomax 0.4 mg Cap.sr] 0.8 mg PO DAILY 03/23/16 Atenolol [Tenormin] 25 mg PO DAILY #30 tablet 03/24/16 Pantoprazole Sodium [Protonix] 40 mg PO BID #60 tablet. 03/24/16 Pantoprazole Sodium [Protonix] 40 mg PO BID #60 tablet. 04/26/16 Sucralfate [Carafate 1 gm Tablet] 1 gm PO ACHS #120 tablet 04/26/16 Sucralfate [Carafate 1 gm Tablet] 1 gm PO ACHS #120 tablet 03/25/17 Acyclovir [Zovirax 800 mg Tablet] 800 mg PO 5XD #50 tab 05/02/18 Gabapentin [Neurontin 100 mg Capsule] 100 mg PO Q12 #30 capsule 05/02/18 Prednisone [Deltasone 10 mg Tablet] 10 mg PO ASDIR PRN #21 tablet 05/02/18 Allergies/Adverse Reactions: No Known Allergies Allergy (Verified 07/05/18 21:30) Review of Systems ROS unobtainable: Due to mental status Physical Exam Vital Signs: Temp Pulse Resp BP Pulse Ox 97.9 F 70 10 L 113/67 94 07/06/18 03:12 07/06/18 04:00 07/06/18 04:00 07/06/18 04:00 07/06/18 04:00 Intake & Output 07/04/18 07/05/18 07/06/18 11:59 11:59 11:59 Intake Total 1999 Balance 1999 Weight 69 kg General appearance: PRESENT: cooperative, disheveled, mild distress Head exam: PRESENT: atraumatic, normocephalic Eye exam: PRESENT: conjunctiva pink, EOMI, PERRLA. ABSENT: scleral icterus Ear exam: PRESENT: normal external ear exam Mouth exam: PRESENT: moist, tongue midline Neck exam: ABSENT: carotid bruit, JVD, lymphadenopathy, thyromegaly Respiratory exam: PRESENT: clear to auscultation my. ABSENT: rales, rhonchi, wheezes Cardiovascular exam: PRESENT: irregular rhythm, +S1, +S2. ABSENT: gallop Pulses: PRESENT: normal dorsalis pedis pul Vascular exam: PRESENT: normal capillary refill GI/Abdominal exam: PRESENT: normal bowel sounds, soft. ABSENT: distended, guarding, mass, organolmegaly, rebound, tenderness Rectal exam: PRESENT: deferred Extremities exam: PRESENT: full ROM. ABSENT: calf tenderness, clubbing, pedal edema Neurological exam: PRESENT: alert, awake, oriented to person, oriented to place, CN II-XII grossly intact, aphasic. ABSENT: oriented to time Psychiatric exam: PRESENT: appropriate affect, normal mood. ABSENT: homicidal ideation, suicidal ideation Skin exam: PRESENT: dry, intact, warm. ABSENT: cyanosis, rash Results Laboratory Results: 07/05/18 19:14 07/05/18 19:14 07/05/18 07/05/18 07/05/18 19:14 19:14 20:25 WBC 7.3 RBC 4.38 Hgb 13.4 L Hct 38.5 MCV 88 MCH 30.5 MCHC 34.7 RDW 15.7 H Plt Count 173 Seg Neutrophils % 56.8 Lymphocytes % 32.5 Monocytes % 9.5 Eosinophils % 0.7 Basophils % 0.5 Absolute Neutrophils 4.2 Absolute Lymphocytes 2.4 Absolute Monocytes 0.7 Absolute Eosinophils 0.0 Absolute Basophils 0.0 Sodium 136.9 L Potassium 3.1 L Chloride 103 Carbon Dioxide 23 Anion Gap 11 BUN 9 Creatinine 1.00 Est GFR ( Amer) > 60 Est GFR (Non-Af Amer) > 60 Glucose 98 Lactic Acid Calcium 10.2 Magnesium Total Bilirubin 1.1 AST 27 ALT 24 Alkaline Phosphatase 128 H Total Protein 7.1 Albumin 3.9 Urine Color YELLOW Urine Appearance CLEAR Urine pH 6.0 Ur Specific [place] 1.004 Urine Protein NEGATIVE Urine Glucose (UA) NEGATIVE Urine Ketones NEGATIVE Urine Blood NEGATIVE Urine Nitrite NEGATIVE Ur Leukocyte Esterase NEGATIVE Urine WBC (Auto) 0 07/05/18 07/05/18 21:12 23:46 WBC RBC Hgb Hct MCV MCH MCHC RDW Plt Count Seg Neutrophils % Lymphocytes % Monocytes % Eosinophils % Basophils % Absolute Neutrophils Absolute Lymphocytes Absolute Monocytes Absolute Eosinophils Absolute Basophils Sodium Potassium Chloride Carbon Dioxide Anion Gap BUN Creatinine Est GFR ( Amer) Est GFR (Non-Af Amer) Glucose Lactic Acid 0.7 Calcium Magnesium 2.3 Total Bilirubin AST ALT Alkaline Phosphatase Total Protein Albumin Urine Color Urine Appearance Urine pH Ur Specific [place] Urine Protein Urine Glucose (UA) Urine Ketones Urine Blood Urine Nitrite Ur Leukocyte Esterase Urine WBC (Auto) 07/05/18 07/05/18 07/05/18 19:14 23:46 23:46 Creatine Kinase 45 L CK-MB (CK-2) 0.31 Troponin I < 0.012 < 0.012 Impressions: Chest X-Ray 07/05/18 00:00 IMPRESSION: NO ACUTE RADIOGRAPHIC FINDING IN THE CHEST. Head CT 07/05/18 00:00 IMPRESSION: NORMAL BRAIN CT WITHOUT CONTRAST. EVIDENCE OF ACUTE STROKE: NO. Head MRI 07/05/18 20:24 IMPRESSION: Findings compatible with multifocal acute infarcts throughout the left cerebral hemisphere in an MCA distribution, as above described. No evidence of significant midline shift, mass effect, or intracranial hemorrhage. Hyperintense T1 signal located about the left M2 segment raises the possibility of intraluminal thrombus at this location. copyright 2010 [employer]- All Rights Reserved Assessment and Plan - Diagnosis (1) Acute ischemic multifocal multiple vascular territories stroke Is this a current diagnosis for this admission?: Yes Plan: Likely secondary to hypotension and/or atrial fibrillation, IV fluid challenge, aspirin, Lovenox Lipitor. Follow-up echocardiogram, permissive hypertension (2) Atrial fibrillation Is this a current diagnosis for this admission?: Yes Plan: Rate controlled, aspirin, Lovenox ordered, follow-up echocardiogram. (3) Aphasia Is this a current diagnosis for this admission?: Yes Plan: Secondary to #1, speech therapy ordered. (4) Hypotension Is this a current diagnosis for this admission?: Yes Plan: IV fluid challenge, permissive hypertension (5) Alcohol dependence Is this a current diagnosis for this admission?: Yes Plan: Thiamine and folate ordered, benzodiazepine as needed withdrawal symptoms - Time Time Spent with patient: 35 or more minutes - Inpatient Certification Medical Necessity: Need Close Monitoring Due to Risk of Patient Decompensation
[2018-07-06] MEDS ORDERED: THIAMINE HCL 100 MG, FOLIC ACID 1 MG in NORMAL SALINE 250 ML IV ONE (04:45)
[2018-07-06] MEDS ORDERED: FOLIC ACID INJ 5 MG/1 ML 10 ML VIAL ONE (04:58)
[2018-07-06] MEDS: NORMAL SALINE 1000 ML 1,000 ML IV PRN ×2 (05:13→10:10)
[2018-07-06 06:36] LABS: ABSOLUTE EOSINOPHILS # (AUTO) 0.1 10^3/uL (0.0-0.6); ABSOLUTE LYMPHOCYTES (AUTO) 1.5 10^3/uL (0.5-4.7); ABSOLUTE MONOCYTES (AUTO) 0.6 10^3/uL (0.1-1.4); ABSOLUTE NEUT (AUTO) 3.2 10^3/uL (1.7-8.2); BASOPHILS % (AUTO) 0.3 % (0-2); EOSINOPHILS % (AUTO) 1.5 % (0-6); HEMATOCRIT 35.6 % (37.9-51.0); HEMOGLOBIN 12.1 g/dL (13.5-17.0); MEAN CORPUSCULAR VOLUME 88 fl (80-97); MONOCYTES % (AUTO) 11.3 % (3-13); PLATELET COUNT 139 10^3/uL (150-450); RED BLOOD COUNT 4.04 10^6/uL (4.35-5.55); RED CELL DISTRIBUTION WIDTH 15.4 % (11.5-14.0); SEGMENTED NEUTROPHILS % (AUTO) 58.9 % (42-78); TOTAL CELLS COUNTED % (AUTO) 100 %; WHITE BLOOD COUNT 5.5 10^3/uL (4.0-10.5)
[2018-07-06 06:55] LABS: ANION GAP 6 (5-19); BLOOD UREA NITROGEN 8 mg/dL (7-20); CALCIUM 9.2 mg/dL (8.4-10.2); CARBON DIOXIDE 24 mmol/L (22-30); CHLORIDE 112 mmol/L (98-107); CHOLESTEROL 214.64 mg/dL (0-200); CREATINE KINASE 36 U/L (55-170); GLUCOSE 82 mg/dL (75-110); POTASSIUM 3.5 mmol/L (3.6-5.0); SODIUM 142.2 mmol/L (137-145); TRIGLYCERIDES 179 mg/dL (<150)
[2018-07-06 07:06] LABS: DIRECT LDL 170 mg/dL (<100)
[2018-07-06 07:08] LABS: CREATINE KINASE MB 0.29 ng/mL (<4.55); TROPONIN I < 0.012 ng/mL; VLDL CHOLESTEROL 35.8 mg/dL (10-31)
[2018-07-06] MEDS ORDERED: LORAZEPAM INJ 2 MG/1 ML VIAL IV PRN (08:38)
[2018-07-06] MEDS: PANTOPRAZOLE SODIUM 40 MG TABLET.DR PO SCH ×2 (09:59→17:59)
[2018-07-06] MEDS: TAMSULOSIN HCL 0.4 MG CAP.SR.24H PO SCH (09:59)
[2018-07-06] MEDS: SERTRALINE HCL 50 MG TABLET PO SCH (09:59)
[2018-07-06] MEDS: ASPIRIN 81 MG TABLET, CHEWABLE PO SCH (09:59)
[2018-07-06] MEDS: NICOTINE 21 MG/24 HR PATCH.TD24 TD SCH (09:59)
[2018-07-06] MEDS: POLYETHYLENE GLYCOL 3350 POWDER 17 GM/1 PACKET PO SCH (10:00)
[2018-07-06] MEDS: ENOXAPARIN SODIUM INJ 60 MG/0.6 ML DISP.SYRIN SUBCUT SCH ×3 (10:00→21:54)
[2018-07-06] MEDS: FOLIC ACID 1 MG TABLET PO SCH (10:01)
[2018-07-06] MEDS: ATENOLOL 50 MG TABLET PO SCH (10:05)
[2018-07-06] MEDS: DIAZEPAM 5 MG TABLET PO SCH ×3 (10:06→17:59)
[2018-07-06 12:35] LABS: CREATINE KINASE MB 0.35 ng/mL (<4.55)
[2018-07-06 12:37] LABS: TROPONIN I < 0.012 ng/mL
--- NOTE | 2018-07-06 13:15 | EKG REPORT ---
SEVERITY:- ABNORMAL ECG - PROBABLE SINUS RYTHM CAN NOT R/O ATRIAL FIBRILLATION BORDERLINE LEFT AXIS DEVIATION BORDERLINE R WAVE PROGRESSION, ANTERIOR LEADS REC REPEAT EKG : Confirmed by: Minoo Marin 06-Jul-2018 13:14:53
--- NOTE | 2018-07-06 15:00 | RADIOLOGY REPORT (SQ) ---
EXAM DESCRIPTION: CAROTID DOPPLER COMPLETED DATE/TIME: 07/06/2018 2:47 pm REASON FOR STUDY: cva COMPARISON: None. TECHNIQUE: Grayscale ultrasound, Doppler velocity and spectra, and color Doppler images acquired of the extra-cranial carotid and vertebral arteries. Images stored on PACS. LIMITATIONS: None. FINDINGS: RIGHT CAROTID CCA Velocities: Within normal limits. ICA Velocities Peak systolic 1.5 m/s. End diastolic 0.4 m/s. Proximal ICA/CCA peak systolic ratio 1.6. Spectra normal. No significant plaque. LEFT CAROTID Abnormal appearance, with limited visualization. Irregular plaque in the internal carotid with dimin ished color flow and waveforms throughout. Suspicious for high-grade obstruction. VERTEBRAL ARTERIES: Antegrade flow. Normal waveforms. SUBCLAVIAN ARTERIES: No finding. OTHER: No other significant finding. IMPRESSION: 1. Poor visualization of the left carotid vessels, extensive plaque with diminished waveforms. Suspe ct high-grade stenosis. If clinically warranted, CTA of the neck vessels may help to better delineat e the extent of disease. 2. No hemodynamically significant right internal carotid stenosis. COMMENT: Quality ID #195: Velocity criteria are extrapolated from the diameter data as defined by t he Society of Radiologists in Ultrasound Consensus Conference. Radiology 2003: 229; 340-346. TECHNICAL DOCUMENTATION: JOB ID: [id number] [employer]- All Rights Reserved Reading location - IP/workstation name: [email or web address]
--- NOTE | 2018-07-06 16:38 | XCELERA REPORT ---
[address] [address] Transthoracic Echocardiogram Report Name: HOLLI PANDEY Age: 72 yrs Gender: Male : 1945 Patient Status: Inpatient Patient Location: [facility]^A Study Date: 07/06/2018 02:15 PM Height: 68 in Weight: 152 lb BSA: 1.8 m2 Reason For Study: afib cva Ordering Physician: HUSSEIN MCLEOD Performed By: Andrey Stone Interpretation Summary Study quality suboptimal with some poor images. Lack of bubble study and contrast limits evaluation for intracardiac shunt/ intracardiac mass or thrombus. LVEF visually appears normal at 60-65%. RV systolic function appears normal. The transmitral spectral Doppler flow pattern is abnormal for age There is a mild amount of mitral regurgitation AV not well visualized but appears focally calcified with doppler data provided not suggestve of any significant stenosis. There is a mild to moderate amount of tricuspid regurgitation There is a trace amount of pulmonic regurgitation The aortic root is normal size. This study cannot rule out any ASD/PFO. MMode/2D Measurements & Calculations RVDd: 3.0 cm LVIDd: 5.3 cm FS: 38.6 % Ao root diam: 3.3 cm IVSd: 0.60 cm LVIDs: 3.3 cm EDV(Teich): 136.9 ml LVPWd: 0.81 cm ESV(Teich): 43.1 ml Ao root area: 8.3 cm2 LA dimension: 4.1 cm EF(Teich): 68.5 % LVOT diam: 1.5 cm LVOT area: 1.8 cm2 Doppler Measurements & Calculations MV E max vivian: MV P1/2t max vivian: Ao V2 max: LV V1 max P.9 cm/sec 131.7 cm/sec 126.2 cm/sec 3.2 mmHg MV A max vivian: MV P1/2t: 80.9 msec Ao max PG: LV V1 max: 51.3 cm/sec MVA(P1/2t): 2.7 cm2 6.4 mmHg 89.3 cm/sec MV E/A: 2.4 MV dec slope: CRISPIN(V,D): 1.3 cm2 476.5 cm/sec2 MV dec time: 0.20 sec MR max vivian: PA V2 max: PI end-d vivian: TR max vivian: 282.3 cm/sec 115.4 cm/sec 89.6 cm/sec 323.1 cm/sec MR max PG: PA max P.3 mmHg TR max P.9 mmHg 41.7 mmHg MV P1/2t-pr_phl: 80.9 msec Left Ventricle The left ventricular ejection fraction is normal. LV EF is 60-65%. The transmitral spectral Doppler flow pattern is abnormal for age. Right Ventricle The right ventricular systolic function is normal. Atria Right atrium not well visualized secondary to technical limitations. The left atrium is not well visualized secondary to technical limitations. Mitral Valve Focal thickening with preserved opening of MV leaflets noted. Mean PG 4 mm hg at HR 103 bpm. There is a mild amount of mitral regurgitation. Aortic Valve The aortic valve is not well visualized secondary to technical limitations. The aortic valve is calcified. There is a peak gradient of 7 mm of Hg. AV V max 128 cm/sec. Tricuspid Valve There is a mild to moderate amount of tricuspid regurgitation. RVSP cannot be calculated. Pulmonic Valve The pulmonic valve is not well visualized. There is a trace amount of pulmonic regurgitation. Great Vessels The aortic root is normal size. The inferior vena cava was not well visualized. Effusions Pericardial thickening/ fat cannot be excluded. : HUSSEIN MCLEOD > Jose Laurent
--- NOTE | 2018-07-06 17:18 | PDOC PROGRESS REPORT ---
Subjective Progress Note for:: 07/06/18 Subjective:: HOLLI PANDEY is a 72 year old male with a past medical history of atrial fibrillation without anticoagulation, dyslipidemia, hypertension, zoster, chronic bronchitis, pancreatitis and alcohol dependence who was admitted 07/05/2018 for acute ischemic multifocal vascular territory stroke. The patient was seen on morning rounds. He was found sitting up in bed comfortably on supplemental oxygen via [place] eating his breakfast. He was feeding himself independently. He made eye contact and follows all commands, although answered "yeah" or "okay" to all questions. Unable to fully assess orientation secondary to expressive aphasia. ROS is limited secondary to mental status; patient appears to be comfortable and is not noted to be in any distress. No concerns per nursing. Reason For Visit: CVA AFIB APHASIA Physical Exam Vital Signs: Temp Pulse Resp BP Pulse Ox 98.2 F 82 20 129/72 H 90 L 07/06/18 11:53 07/06/18 14:00 07/06/18 12:00 07/06/18 12:00 07/06/18 12:00 Intake & Output 07/05/18 07/06/18 07/07/18 06:59 06:59 06:59 Intake Total 2251.2 1236 Output Total 0 Balance 2251.2 1236 Weight 66.6 kg General appearance: PRESENT: no acute distress, cooperative, disheveled, well- developed, well-nourished Head exam: PRESENT: atraumatic, normocephalic Eye exam: PRESENT: conjunctiva pink, EOMI, PERRLA. ABSENT: scleral icterus Ear exam: PRESENT: normal external ear exam Mouth exam: PRESENT: moist, tongue midline Neck exam: ABSENT: carotid bruit, JVD, lymphadenopathy, thyromegaly Respiratory exam: PRESENT: clear to auscultation my. ABSENT: rales, rhonchi, wheezes Cardiovascular exam: PRESENT: irregular rhythm, +S1, +S2. ABSENT: diastolic murmur, rubs, systolic murmur Pulses: PRESENT: normal dorsalis pedis pul Vascular exam: PRESENT: normal capillary refill GI/Abdominal exam: PRESENT: normal bowel sounds, soft. ABSENT: distended, guarding, mass, organolmegaly, rebound, tenderness Rectal exam: PRESENT: deferred Extremities exam: PRESENT: full ROM. ABSENT: calf tenderness, clubbing, pedal edema Musculoskeletal exam: PRESENT: ambulatory Neurological exam: PRESENT: alert, awake, aphasic - followed commands; answered all questions "yeah". ABSENT: motor sensory deficit Psychiatric exam: PRESENT: appropriate affect, normal mood. ABSENT: homicidal ideation, suicidal ideation Skin exam: PRESENT: dry, intact, warm. ABSENT: cyanosis, rash Results Laboratory Results: 07/06/18 06:03 07/06/18 06:03 07/05/18 07/05/18 07/05/18 19:14 19:14 20:25 WBC 7.3 RBC 4.38 Hgb 13.4 L Hct 38.5 MCV 88 MCH 30.5 MCHC 34.7 RDW 15.7 H Plt Count 173 Seg Neutrophils % 56.8 Lymphocytes % 32.5 Monocytes % 9.5 Eosinophils % 0.7 Basophils % 0.5 Absolute Neutrophils 4.2 Absolute Lymphocytes 2.4 Absolute Monocytes 0.7 Absolute Eosinophils 0.0 Absolute Basophils 0.0 Sodium 136.9 L Potassium 3.1 L Chloride 103 Carbon Dioxide 23 Anion Gap 11 BUN 9 Creatinine 1.00 Est GFR ( Amer) > 60 Est GFR (Non-Af Amer) > 60 Glucose 98 Lactic Acid Calcium 10.2 Magnesium Total Bilirubin 1.1 AST 27 ALT 24 Alkaline Phosphatase 128 H Total Protein 7.1 Albumin 3.9 Triglycerides Cholesterol LDL Cholesterol Direct VLDL Cholesterol HDL Cholesterol Urine Color YELLOW Urine Appearance CLEAR Urine pH 6.0 Ur Specific [place] 1.004 Urine Protein NEGATIVE Urine Glucose (UA) NEGATIVE Urine Ketones NEGATIVE Urine Blood NEGATIVE Urine Nitrite NEGATIVE Ur Leukocyte Esterase NEGATIVE Urine WBC (Auto) 0 07/05/18 07/05/18 07/06/18 21:12 23:46 06:03 WBC RBC Hgb Hct MCV MCH MCHC RDW Plt Count Seg Neutrophils % Lymphocytes % Monocytes % Eosinophils % Basophils % Absolute Neutrophils Absolute Lymphocytes Absolute Monocytes Absolute Eosinophils Absolute Basophils Sodium 142.2 Potassium 3.5 L Chloride 112 H Carbon Dioxide 24 Anion Gap 6 BUN 8 Creatinine 0.83 Est GFR ( Amer) > 60 Est GFR (Non-Af Amer) > 60 Glucose 82 Lactic Acid 0.7 Calcium 9.2 Magnesium 2.3 Total Bilirubin AST ALT Alkaline Phosphatase Total Protein Albumin Triglycerides 179 H Cholesterol 214.64 H LDL Cholesterol Direct 170 H VLDL Cholesterol 35.8 H HDL Cholesterol 28 L Urine Color Urine Appearance Urine pH Ur Specific [place] Urine Protein Urine Glucose (UA) Urine Ketones Urine Blood Urine Nitrite Ur Leukocyte Esterase Urine WBC (Auto) 07/06/18 06:03 WBC 5.5 RBC 4.04 L Hgb 12.1 L Hct 35.6 L MCV 88 MCH 30.0 MCHC 34.0 RDW 15.4 H Plt Count 139 L Seg Neutrophils % 58.9 Lymphocytes % 28.0 Monocytes % 11.3 Eosinophils % 1.5 Basophils % 0.3 Absolute Neutrophils 3.2 Absolute Lymphocytes 1.5 Absolute Monocytes 0.6 Absolute Eosinophils 0.1 Absolute Basophils 0.0 Sodium Potassium Chloride Carbon Dioxide Anion Gap BUN Creatinine Est GFR ( Amer) Est GFR (Non-Af Amer) Glucose Lactic Acid Calcium Magnesium Total Bilirubin AST ALT Alkaline Phosphatase Total Protein Albumin Triglycerides Cholesterol LDL Cholesterol Direct VLDL Cholesterol HDL Cholesterol Urine Color Urine Appearance Urine pH Ur Specific [place] Urine Protein Urine Glucose (UA) Urine Ketones Urine Blood Urine Nitrite Ur Leukocyte Esterase Urine WBC (Auto) 07/05/18 07/05/18 07/05/18 19:14 23:46 23:46 Creatine Kinase 45 L CK-MB (CK-2) 0.31 Troponin I < 0.012 < 0.012 07/06/18 07/06/18 07/06/18 06:03 06:03 11:53 Creatine Kinase 36 L 36 L CK-MB (CK-2) 0.29 Troponin I < 0.012 07/06/18 11:53 Creatine Kinase CK-MB (CK-2) 0.35 Troponin I < 0.012 Impressions: Chest X-Ray 07/05/18 00:00 IMPRESSION: NO ACUTE RADIOGRAPHIC FINDING IN THE CHEST. Head CT 07/05/18 00:00 IMPRESSION: NORMAL BRAIN CT WITHOUT CONTRAST. EVIDENCE OF ACUTE STROKE: NO. Head MRI 07/05/18 20:24 IMPRESSION: Findings compatible with multifocal acute infarcts throughout the left cerebral hemisphere in an MCA distribution, as above described. No evidence of significant midline shift, mass effect, or intracranial hemorrhage. Hyperintense T1 signal located about the left M2 segment raises the possibility of intraluminal thrombus at this location. copyright 2010 [employer]- All Rights Reserved Carotid Doppler Study 07/06/18 00:00 IMPRESSION: 1. Poor visualization of the left carotid vessels, extensive plaque with diminished waveforms. Suspect high-grade stenosis. If clinically warranted, CTA of the neck vessels may help to better delineate the extent of disease. 2. No hemodynamically significant right internal carotid stenosis. Assessment and Plan - Diagnosis (1) Acute ischemic multifocal multiple vascular territories stroke Is this a current diagnosis for this admission?: Yes Plan: Patient presented with report of 3 days of expressive aphasia and odd behaviors. Head CT demonstrated Mild periventricular and patchy subcortical white matter low attenuation. Follow-up head MRI demonstrated findings compatible with multifocal acute infarcts throughout the left circumflex hemisphere in an MCA distribution. Hyperintense T1 signal located about the left M2 segment concerning for intraluminal thrombus. Carotid Doppler showed poor visualization of the left carotid vessel but with extensive plaque and diminished waveforms suspicious for high-grade stenosis. No hemodynamically significant stenosis on the right. Echocardiogram is pending. Head and neck CTA pending. Troponins are negative x3, lipid panel reveals hyperlipidemia. Patient is admitted to [facility] on continuous cardiac telemetry. He is placed on aspirin and statin therapy. Full dose Lovenox. Will consult neurology regarding possible intraluminal thrombus; head CTA pending. PT/OT/ST therapy consultations ordered. Discharge planning consulted. (2) Alcohol dependence Is this a current diagnosis for this admission?: Yes Plan: Patient acknowledges heavy daily EtOH use. He is placed on scheduled Valium 5 mg every 6 hours. IV Ativan as needed for anxiety, agitation, withdrawal symptoms. Daily thiamine and folate supplementation Fall, seizure, and aspiration precautions. (3) Aphasia Is this a current diagnosis for this admission?: Yes Plan: Secondary to #1, speech therapy ordered. (4) Atrial fibrillation Is this a current diagnosis for this admission?: Yes Plan: Rate controlled. Echocardiogram is pending. Continue atenolol 25 mg daily. Continue daily aspirin Now on full-dose Lovenox (5) Hypotension Is this a current diagnosis for this admission?: Yes Plan: Improved following IV fluid challenge. BP 129/72 today. (6) Tobacco dependence Is this a current diagnosis for this admission?: Yes Plan: Smoking cessation is encouraged, nicotine replacement therapies are provided. - Time Time Spent with patient: 15-24 minutes Medications reviewed and adjusted accordingly: Yes Anticipated discharge: Acute Rehab Within: within 48 hours
[2018-07-06] MEDS: SUCRALFATE 1 GM TABLET PO SCH ×2 (17:48→21:53)
--- NOTE | 2018-07-06 17:48 | RADIOLOGY REPORT (SQ) ---
EXAM DESCRIPTION: CTA NECK COMPLETED DATE/TIME: 07/06/2018 5:29 pm REASON FOR STUDY: CVA, high grade stenosis on doppler COMPARISON: Doppler study. TECHNIQUE: Axial dynamic scanning technique with dynamic contrast enhancement through the extra-leather scraper nial carotid and vertebral arteries. Multiplanar reconstruction. 3-D MIPS and Volume-rendered imag es acquired at the workstation and saved to PACS. Images are reviewed in soft tissue, bone, lung w indows. All CT scanners at this facility use dose modulation, iterative reconstruction, and/or weight based d osing when appropriate to reduce radiation dose to as low as reasonably achievable (ALARA). [facility]: Dose Right [facility]: CareDose [facility]: Dose Right [facility]: Teradose 4D [facility]: PayParade Pictures CONTRAST TYPE AND DOSE: contrast/concentration: Isovue 350.00 mg/ml; Total Contrast Delivered: 70.0 ml; Total Saline Delivered: 75.0 ml RENAL FUNCTION: GFR > 60. LIMITATIONS: None. FINDINGS: AORTIC ARCH: Anatomic variant left vertebral arises from the aortic arch. There is occlus ion of the left common carotid artery distal to the margin with what appears to be extensive thrombus . RIGHT CAROTIDS: Extensive plaque at the origin of the right ICA. Less than 50% stenosis. RIGHT VERTEBRAL: Patent. No dissection. LEFT CAROTIDS: Completed occlusion of the left common carotid artery just distal to the origin. No c ontrast seen in either the ICA or ECA. LEFT VERTEBRAL: Large in widely patent. Arises from the aortic arch. OTHER: No other significant finding. OTHER: 3-D reconstructions confirm findings. IMPRESSION: Less than 50% stenosis of the right ICA but extensive plaque at the origin of the ICA. Complete occlusion of the left common carotid artery just distal to the origin. No contrast in the I CA or ECA. Widely patent left vertebral which arises from the aortic arch. COMMENT: Quality ID #[id number]: Measurements of distal internal carotid diameter were used as the denomina tor for stenosis measurement. TECHNICAL DOCUMENTATION: JOB ID: [id number] Quality ID # [id number]: Final reports with documentation of one or more dose reduction techniques (e.g., Au tomated exposure control, adjustment of the mA and/or kV according to patient size, use of iterative reconstruction technique) 2010 [employer]- All Rights Reserved Reading location - IP/workstation name: [email or web address]
--- NOTE | 2018-07-06 17:51 | RADIOLOGY REPORT (SQ) ---
EXAM DESCRIPTION: CTA HEAD COMPLETED DATE/TIME: 07/06/2018 5:29 pm REASON FOR STUDY: CVA, high grade lt carotid stenosis on doppler COMPARISON: None. TECHNIQUE: Post IV contrast scanning, thin section axial imaging through the brain to evaluate the a rterial structures. Source and MIP images are saved and reviewed on PACS. Advanced 3D imaging as volume-rendering, MIPs, SSD performed? yes All CT scanners at this facility use dose modulation, iterative reconstruction, and/or weight based d osing when appropriate to reduce radiation dose to as low as reasonably achievable (ALARA). [facility]: Dose Right [facility]: CareDose [facility]: Dose Right [facility]: Teradose 4D [facility]: [employer] CONTRAST TYPE AND DOSE: See neck CTA. RENAL FUNCTION: GFR > 60. LIMITATIONS: None. FINDINGS: [place]: Left internal carotid completely occluded. There is cross-filling to th e left circulation via a patent right anterior communicator. There is atherosclerotic change of the middle cerebral on the left with decreased flow compared to the right but no focal occlusion. Anteri or cerebral vessels and right middle cerebral widely patent. POSTERIOR CIRCULATION: The distal vertebral arteries are patent as is the basilar artery. No aneurysm . BRAIN: No gross enhancing lesions as visualized. The superior cerebral hemispheres are not included in the field of view. BONES: Intact as visualized. SINUSES: No fluid or mucosal thickening. OTHER: No other significant finding. IMPRESSION: Cross-filling of the left system via patent anterior communicator, as the left carotid i s occluded. There is atherosclerotic change of the left middle cerebral vessel with decreased flow o n the left compared to the right. TECHNICAL DOCUMENTATION: JOB ID: [id number] Quality ID # [id number]: Final reports with documentation of one or more dose reduction techniques (e.g., Au tomated exposure control, adjustment of the mA and/or kV according to patient size, use of iterative reconstruction technique) 2010 [employer]- All Rights Reserved Reading location - IP/workstation name: [email or web address]
[2018-07-06] MEDS: HYDROCODONE/ACETAMINOPHEN 10-325 MG TABLET PO SCH ×2 (17:59→21:53)
[2018-07-06] MEDS: THIAMINE HCL 100 MG, FOLIC ACID 1 MG in NORMAL SALINE 250 ML IV SCH (21:53)
[2018-07-06] MEDS: ATORVASTATIN CALCIUM 80 MG TABLET PO SCH ×2 (21:53)
[2018-07-06] MEDS ORDERED: PREGABALIN 75 MG CAPSULE PO SCH (22:00)
[2018-07-06] MEDS ORDERED: OXYMORPHONE HCL 10 MG PO SCH (22:00)
[2018-07-07] MEDS: DIAZEPAM 5 MG TABLET PO SCH ×5 (00:59→23:10)
[2018-07-07] MEDS: HYDROCODONE/ACETAMINOPHEN 10-325 MG TABLET PO SCH ×3 (01:01→15:41)
[2018-07-07 09:16] LABS: HEMATOCRIT 35.1 % (37.9-51.0); HEMOGLOBIN 11.8 g/dL (13.5-17.0); MEAN CORPUSCULAR HEMOGLOBIN 30.2 pg (27.0-33.4); MEAN CORPUSCULAR HGB CONC 33.7 g/dL (32.0-36.0); MEAN CORPUSCULAR VOLUME 90 fl (80-97); PLATELET COUNT 153 10^3/uL (150-450); RED BLOOD COUNT 3.92 10^6/uL (4.35-5.55); RED CELL DISTRIBUTION WIDTH 15.7 % (11.5-14.0); WHITE BLOOD COUNT 7.9 10^3/uL (4.0-10.5)
[2018-07-07 09:37] LABS: BLOOD UREA NITROGEN 9 mg/dL (7-20); CALCIUM 9.8 mg/dL (8.4-10.2); CARBON DIOXIDE 24 mmol/L (22-30); CHLORIDE 113 mmol/L (98-107); GLUCOSE 92 mg/dL (75-110); POTASSIUM 3.6 mmol/L (3.6-5.0); SODIUM 140.8 mmol/L (137-145)
[2018-07-07 09:42] LABS: ANION GAP 4 (5-19)
[2018-07-07] MEDS ORDERED: PANTOPRAZOLE SODIUM 40 MG TABLET.DR PO SCH (10:00)
[2018-07-07] MEDS ORDERED: TAMSULOSIN HCL 0.4 MG CAP.SR.24H PO SCH (10:00)
[2018-07-07] MEDS ORDERED: HYDROCODONE/ACETAMINOPHEN 10-325 MG TABLET PO PRN (12:46)
[2018-07-07] MEDS ORDERED: ALBUTEROL SULFATE 0.083% NEB 2.5 MG/3 ML AMPUL NEB PRN (13:03)
--- NOTE | 2018-07-07 13:21 | PDOC PROGRESS REPORT ---
Addendum entered and electronically signed by MELVI CASTANEDA NP-C 07/07/18 17:40: Provider Note Provider Note: Addendum: Met with the patient's family members this afternoon; sister, 2 brothers, and niece. It is unclear who the patient's surrogate decision-maker or POA is. We reviewed the patient's clinical course, imaging and laboratory results, consultations (telephone discussions with Vas surgery and Neurology), and plan of care. Patient's family does indicate that the patient has a recent diagnosis of PAF; was in the process of arranging for an event monitor with his primary care provider. Per discussion with neurology this morning, patient was placed on aspirin 81 mg and Plavix. When considering chronic anticoagulation: HAS-BLED score is 4 points; 8.9% yearly major bleeding event risk. [id number] score is 4 points; 4.8 yearly CVA event. Relative stroke and bleeding risks were reviewed with family members. Would recommend 30 day Event Monitor at discharge and further discussion with neurology regarding chronic anticoagulation at outpatient follow up. Original Note: Subjective Progress Note for:: 07/07/18 Subjective:: HOLLI PANDEY is a 72 year old male with a past medical history of atrial fibrillation without anticoagulation, dyslipidemia, hypertension, zoster, chronic bronchitis, pancreatitis and alcohol dependence who was admitted 07/05/2018 for acute ischemic multifocal vascular territory stroke. The patient was seen on morning rounds; there were no family members present. He was found sleeping comfortably on room air. He woke easily when I said his name; but with a start reflex and appeared disorientated. Unfortuantely, he continues to have profound expressive aphasia and did not speak spontaneously and answered "yeah" to all questions. He did not follow directions today, though sensation appeared to be intact all extremities. He was noted to keep his right hand clenched and arm flexed; he did not relax w/ coaching or assistance. He was not noted to have facial asymmetry. Neuro exam otherwise limited secondary to mental status. ROS is limited secondary to mental status; patient appears to be comfortable and is not noted to be in any distress. Nursing reports some concern for evidence of EtOH withdrawal symptoms; patient is intermittently tachycardic, diaphoretic, hypersensitive (startles easily) to noise, and does not follow directions as well as yesterday. Reason For Visit: CVA AFIB APHASIA Physical Exam Vital Signs: Temp Pulse Resp BP Pulse Ox 99.3 F 97 16 101/68 97 07/07/18 11:11 07/07/18 11:11 07/07/18 11:11 07/07/18 11:11 07/07/18 11:11 Intake & Output 07/06/18 07/07/18 07/08/18 06:59 06:59 06:59 Intake Total 2251.2 1841.2 118 Output Total 0 Balance 2251.2 1841.2 118 Weight 66.6 kg 66.7 kg General appearance: PRESENT: no acute distress, disheveled, well-developed, well-nourished Head exam: PRESENT: atraumatic, normocephalic Eye exam: PRESENT: conjunctiva pink, EOMI, PERRLA. ABSENT: scleral icterus Ear exam: PRESENT: normal external ear exam Mouth exam: PRESENT: moist, tongue midline Neck exam: ABSENT: carotid bruit, JVD, lymphadenopathy, thyromegaly Respiratory exam: PRESENT: rhonchi, symmetrical, unlabored. ABSENT: rales, whe ezes Cardiovascular exam: PRESENT: RRR - NSR, +S1, +S2. ABSENT: diastolic murmur, rubs, systolic murmur Pulses: PRESENT: normal dorsalis pedis pul Vascular exam: PRESENT: normal capillary refill GI/Abdominal exam: PRESENT: normal bowel sounds, soft. ABSENT: distended, guarding, mass, organolmegaly, rebound, tenderness Rectal exam: PRESENT: deferred Extremities exam: PRESENT: other - moves all extremities. ABSENT: calf tenderness, clubbing, pedal edema Neurological exam: PRESENT: alert, awake, CN II-XII grossly intact, aphasic, other - No facial asymmetry, unable to follow commands today, right-side inattention/weakness. ABSENT: motor sensory deficit Skin exam: PRESENT: dry, intact, warm, other - Diaphoretic. ABSENT: cyanosis, rash Results Laboratory Results: 07/07/18 08:25 07/07/18 08:25 07/07/18 07/07/18 08:25 08:25 WBC 7.9 RBC 3.92 L Hgb 11.8 L Hct 35.1 L MCV 90 MCH 30.2 MCHC 33.7 RDW 15.7 H Plt Count 153 Sodium 140.8 Potassium 3.6 Chloride 113 H Carbon Dioxide 24 Anion Gap 4 L BUN 9 Creatinine 1.04 Est GFR ( Amer) > 60 Est GFR (Non-Af Amer) > 60 Glucose 92 Calcium 9.8 07/05/18 07/05/18 07/05/18 19:14 23:46 23:46 Creatine Kinase 45 L CK-MB (CK-2) 0.31 Troponin I < 0.012 < 0.012 07/06/18 07/06/18 07/06/18 06:03 06:03 11:53 Creatine Kinase 36 L 36 L CK-MB (CK-2) 0.29 Troponin I < 0.012 07/06/18 11:53 Creatine Kinase CK-MB (CK-2) 0.35 Troponin I < 0.012 Impressions: Chest X-Ray 07/05/18 00:00 IMPRESSION: NO ACUTE RADIOGRAPHIC FINDING IN THE CHEST. Head CT 07/05/18 00:00 IMPRESSION: NORMAL BRAIN CT WITHOUT CONTRAST. EVIDENCE OF ACUTE STROKE: NO. Head MRI 07/05/18 20:24 IMPRESSION: Findings compatible with multifocal acute infarcts throughout the left cerebral hemisphere in an MCA distribution, as above described. No evidence of significant midline shift, mass effect, or intracranial hemorrhage. Hyperintense T1 signal located about the left M2 segment raises the possibility of intraluminal thrombus at this location. copyright 2011 [employer]- All Rights Reserved Carotid Doppler Study 07/06/18 00:00 IMPRESSION: 1. Poor visualization of the left carotid vessels, extensive plaque with diminished waveforms. Suspect high-grade stenosis. If clinically warranted, CTA of the neck vessels may help to better delineate the extent of disease. 2. No hemodynamically significant right internal carotid stenosis. Head CTA 07/06/18 00:00 IMPRESSION: Cross-filling of the left system via patent anterior communicator, as the left carotid is occluded. There is atherosclerotic change of the left middle cerebral vessel with decreased flow on the left compared to the right. Neck CTA 07/06/18 00:00 IMPRESSION: Less than 50% stenosis of the right ICA but extensive plaque at the origin of the ICA. Complete occlusion of the left common carotid artery just distal to the origin. No contrast in the ICA or ECA. Widely patent left vertebral which arises from the aortic arch. Assessment and Plan - Diagnosis (1) Acute ischemic multifocal multiple vascular territories stroke Is this a current diagnosis for this admission?: Yes Plan: Patient presented with report of 3 days of expressive aphasia and odd behaviors. Head CT demonstrated Mild periventricular and patchy subcortical white matter low attenuation. Follow-up head MRI demonstrated findings compatible with multifocal acute infarcts throughout the left circumflex hemisphere in an MCA distribution. Hyperintense T1 signal located about the left M2 segment concerning for intraluminal thrombus. Carotid Doppler showed poor visualization of the left carotid vessel but with extensive plaque and diminished waveforms suspicious for high-grade stenosis. No hemodynamically significant stenosis on the right. Echocardiogram revealed LVEF 50-60%; bubble study not available. No clear intra-cardiac source of thrombus. Head and neck CTA demonstrated <50% occlusion of the right ICA, 100% occlusion of the left ICA with cross-filling of the left system via patent anterior co mmunicator. Troponins are negative x3, lipid panel reveals hyperlipidemia. Patient is admitted to [facility] on continuous cardiac telemetry. He is placed on aspirin and statin therapy. PT/OT/ST therapy consultations ordered. Discharge planning consulted. Spoke w/ Dr. Boubacar Jon w/ regard to neck CTA results. Dr. Jon advises that the patient would not be a candidate for carotid endarterectomy at this time; recommends neurology consultation. Called [facility] and spoke with Dr. Cornelius (neurology). She confirms that there is a 6-hour window for thrombectomy in a patient presenting with his similar findings. As the patient presented after approximately 3 days of symptoms, he was outside the window upon arrival to the emergency department. She recommends dual antiplatelet therapy with aspirin 81 mg and Plavix 75 mg daily. As the patient is not in atrial fibrillation; would not require chronic anticoagulation. Continue full dose statin. Full dose Lovenox is discontinued; we will continue heparin 5000 units subcu every 8 for DVT prophylaxis. (2) Alcohol dependence Qualifiers: Substance use status: in withdrawal Is this a current diagnosis for this admission?: Yes Plan: Patient acknowledges heavy daily EtOH use. Some symptoms of early withdrawal today; intermittent tachycardia and hypertension, diaphoresis, startle reflexes, decreased ability to follow commands. Continue scheduled Valium 5 mg every 6 hours. IV Ativan as needed for anxiety, agitation, withdrawal symptoms. Daily thiamine and folate supplementation Fall, seizure, and aspiration precautions. (3) Aphasia Is this a current diagnosis for this admission?: Yes Plan: Secondary to #1, speech therapy ordered. (4) Tobacco dependence Is this a current diagnosis for this admission?: Yes Plan: Smoking cessation is encouraged, nicotine replacement therapies are provided. (5) Atrial fibrillation Is this a current diagnosis for this admission?: Yes Plan: Ruled out; review of initial EKG does show P waves. He has been in sinus rhythm since arrival to the telemetry floor. Continue atenolol 25 mg daily. Continue daily aspirin (6) Hypotension Is this a current diagnosis for this admission?: Yes Plan: Resolved. - Time Time Spent with patient: 35 or more minutes Medications reviewed and adjusted accordingly: Yes Anticipated discharge: SNF Within: when bed available
[2018-07-07] MEDS ORDERED: CLOPIDOGREL BISULFATE 75 MG TABLET PO ONE (14:00)
[2018-07-07] MEDS: SUCRALFATE 1 GM TABLET PO SCH ×4 (15:34→23:09)
[2018-07-07] MEDS: ASPIRIN 81 MG TABLET, CHEWABLE PO SCH (15:35)
[2018-07-07] MEDS: NICOTINE 21 MG/24 HR PATCH.TD24 TD SCH (15:36)
[2018-07-07] MEDS: TAMSULOSIN HCL 0.4 MG CAP.SR.24H PO SCH (15:36)
[2018-07-07] MEDS: FOLIC ACID 1 MG TABLET PO SCH (15:36)
[2018-07-07] MEDS: POLYETHYLENE GLYCOL 3350 POWDER 17 GM/1 PACKET PO SCH (15:36)
[2018-07-07] MEDS: GABAPENTIN 100 MG CAPSULE PO SCH ×2 (15:36→23:10)
[2018-07-07] MEDS: PANTOPRAZOLE SODIUM 40 MG TABLET.DR PO SCH ×2 (15:37→19:20)
[2018-07-07] MEDS: ATENOLOL 50 MG TABLET PO SCH (15:37)
[2018-07-07] MEDS: SERTRALINE HCL 50 MG TABLET PO SCH (15:37)
[2018-07-07] MEDS: HEPARIN SOD (PORCINE) 5,000 UNIT/ML 1 ML SYRINGE SUBCUT SCH ×2 (15:38→22:55)
[2018-07-07] MEDS: ENOXAPARIN SODIUM INJ 60 MG/0.6 ML DISP.SYRIN SUBCUT SCH (15:41)
[2018-07-07] MEDS: IPRATROPIUM/ALBUTEROL 0.5-2.5 MG/3 ML AMPUL NEB SCH (21:21)
[2018-07-07] MEDS: THIAMINE HCL 100 MG, FOLIC ACID 1 MG in NORMAL SALINE 250 ML IV SCH (23:10)
[2018-07-07] MEDS: ATORVASTATIN CALCIUM 80 MG TABLET PO SCH (23:10)
[2018-07-08 05:02] LABS: HEMATOCRIT 35.6 % (37.9-51.0); MEAN CORPUSCULAR HEMOGLOBIN 29.9 pg (27.0-33.4); MEAN CORPUSCULAR HGB CONC 33.9 g/dL (32.0-36.0); MEAN CORPUSCULAR VOLUME 88 fl (80-97); PLATELET COUNT 134 10^3/uL (150-450); RED BLOOD COUNT 4.02 10^6/uL (4.35-5.55); RED CELL DISTRIBUTION WIDTH 15.8 % (11.5-14.0); WHITE BLOOD COUNT 6.6 10^3/uL (4.0-10.5)
[2018-07-08] MEDS: HEPARIN SOD (PORCINE) 5,000 UNIT/ML 1 ML SYRINGE SUBCUT SCH ×3 (05:25→21:25)
[2018-07-08] MEDS: DIAZEPAM 5 MG TABLET PO SCH ×2 (05:25→13:28)
[2018-07-08 05:31] LABS: ANION GAP 8 (5-19); BLOOD UREA NITROGEN 11 mg/dL (7-20); CARBON DIOXIDE 20 mmol/L (22-30); CHLORIDE 112 mmol/L (98-107); GLUCOSE 86 mg/dL (75-110); POTASSIUM 3.2 mmol/L (3.6-5.0); SODIUM 140.4 mmol/L (137-145)
[2018-07-08] MEDS ORDERED: POTASSIUM CHLORIDE 10 MEQ CAPSULE.ER PO ONE (09:00)
[2018-07-08] MEDS: IPRATROPIUM/ALBUTEROL 0.5-2.5 MG/3 ML AMPUL NEB SCH ×2 (09:05→20:15)
[2018-07-08] MEDS: SERTRALINE HCL 50 MG TABLET PO SCH (10:19)
[2018-07-08] MEDS: SUCRALFATE 1 GM TABLET PO SCH ×4 (10:19→21:31)
[2018-07-08] MEDS: ASPIRIN 81 MG TABLET, CHEWABLE PO SCH (10:20)
[2018-07-08] MEDS: FOLIC ACID 1 MG TABLET PO SCH (10:20)
[2018-07-08] MEDS: CLOPIDOGREL BISULFATE 75 MG TABLET PO SCH (10:20)
[2018-07-08] MEDS: NICOTINE 21 MG/24 HR PATCH.TD24 TD SCH (10:20)
[2018-07-08] MEDS: TAMSULOSIN HCL 0.4 MG CAP.SR.24H PO SCH (10:20)
[2018-07-08] MEDS: GABAPENTIN 100 MG CAPSULE PO SCH ×2 (10:20→21:31)
[2018-07-08] MEDS: PANTOPRAZOLE SODIUM 40 MG TABLET.DR PO SCH ×2 (10:20→18:15)
[2018-07-08] MEDS: POLYETHYLENE GLYCOL 3350 POWDER 17 GM/1 PACKET PO SCH (10:21)
[2018-07-08] MEDS: ATENOLOL 50 MG TABLET PO SCH (10:21)
--- NOTE | 2018-07-08 16:42 | PDOC PROGRESS REPORT ---
Subjective Progress Note for:: 07/08/18 Subjective:: HOLLI PANDEY is a 72 year old male with a past medical history of atrial fibrillation without anticoagulation, dyslipidemia, hypertension, zoster, chronic bronchitis, pancreatitis and alcohol dependence who was admitted 07/05/2018 for acute ischemic multifocal vascular territory stroke. The patient was seen on morning rounds briefly; visited again in the afternoon when sister and brother were present. Unfortuantely, he continues to have profound expressive aphasia and did not speak spontaneously and answered "yeah" or "okay" to all ; per family, he has said a few short phrases today. He does follow directions today, and is noted to be reaching to the tray table with his right hand. He did not his head yes when asked if he wanted something to drink, and was able to hold and drink independently. Overall, he is noted to be much more alert, interactive with environment, and attentive. He was not noted to have facial asymmetry. Neuro exam otherwise limited secondary to mental status. ROS is limited secondary to mental status; patient appears to be comfortable and is not noted to be in any distress. Discussed with the patient and family recommendations for SHERRY to better assess the risks and benefits of chronic anticoagulation; arranged for Sunday at [facility]. No concerns per nursing today. Reason For Visit: CVA AFIB APHASIA Physical Exam Vital Signs: Temp Pulse Resp BP Pulse Ox 98.2 F 72 18 118/75 95 07/08/18 11:44 07/08/18 14:00 07/08/18 11:44 07/08/18 11:44 07/08/18 11:44 Intake & Output 07/07/18 07/08/18 07/09/18 06:59 06:59 06:59 Intake Total 1841.2 805.2 Output Total 50 Balance 1841.2 755.2 Weight 66.8 kg 69.6 kg General appearance: PRESENT: no acute distress, cooperative, well-developed, well-nourished Head exam: PRESENT: atraumatic, normocephalic Eye exam: PRESENT: conjunctiva pink, EOMI, PERRLA. ABSENT: scleral icterus Ear exam: PRESENT: normal external ear exam Mouth exam: PRESENT: moist, tongue midline Respiratory exam: PRESENT: clear to auscultation my, symmetrical, unlabored. ABSENT: rales, rhonchi, wheezes Cardiovascular exam: PRESENT: RRR. ABSENT: diastolic murmur, rubs, systolic murmur Pulses: PRESENT: normal dorsalis pedis pul Vascular exam: PRESENT: normal capillary refill GI/Abdominal exam: PRESENT: normal bowel sounds, soft. ABSENT: distended, guarding, mass, organolmegaly, rebound, tenderness Rectal exam: PRESENT: deferred Extremities exam: PRESENT: full ROM - Spontaneous movement of all extremities. ABSENT: calf tenderness, clubbing, pedal edema Neurological exam: PRESENT: alert, awake, CN II-XII grossly intact, aphasic, other - Increased alertness, environmental awareness, and movement/strength of right upper extremity as compared to yesterday. Able to follow simple commands with prompting. No facial asymmetry noted.. ABSENT: motor sensory deficit Psychiatric exam: PRESENT: appropriate affect, normal mood. ABSENT: homicidal ideation, suicidal ideation Skin exam: PRESENT: dry, intact, warm. ABSENT: cyanosis, rash Results Laboratory Results: 07/08/18 04:20 07/08/18 04:20 07/08/18 07/08/18 04:20 04:20 WBC 6.6 RBC 4.02 L Hgb 12.0 L Hct 35.6 L MCV 88 MCH 29.9 MCHC 33.9 RDW 15.8 H Plt Count 134 L Sodium 140.4 Potassium 3.2 L Chloride 112 H Carbon Dioxide 20 L Anion Gap 8 BUN 11 Creatinine 1.00 Est GFR ( Amer) > 60 Est GFR (Non-Af Amer) > 60 Glucose 86 Calcium 10.0 07/05/18 07/05/18 07/05/18 19:14 23:46 23:46 Creatine Kinase 45 L CK-MB (CK-2) 0.31 Troponin I < 0.012 < 0.012 07/06/18 07/06/18 07/06/18 06:03 06:03 11:53 Creatine Kinase 36 L 36 L CK-MB (CK-2) 0.29 Troponin I < 0.012 07/06/18 11:53 Creatine Kinase CK-MB (CK-2) 0.35 Troponin I < 0.012 Impressions: Chest X-Ray 07/05/18 00:00 IMPRESSION: NO ACUTE RADIOGRAPHIC FINDING IN THE CHEST. Head CT 07/05/18 00:00 IMPRESSION: NORMAL BRAIN CT WITHOUT CONTRAST. EVIDENCE OF ACUTE STROKE: NO. Head MRI 07/05/18 20:24 IMPRESSION: Findings compatible with multifocal acute infarcts throughout the left cerebral hemisphere in an MCA distribution, as above described. No evidence of significant midline shift, mass effect, or intracranial hemorrhage. Hyperintense T1 signal located about the left M2 segment raises the possibility of intraluminal thrombus at this location. copyright 2010 [employer]- All Rights Reserved Carotid Doppler Study 07/06/18 00:00 IMPRESSION: 1. Poor visualization of the left carotid vessels, extensive plaque with diminished waveforms. Suspect high-grade stenosis. If clinically warranted, CTA of the neck vessels may help to better delineate the extent of disease. 2. No hemodynamically significant right internal carotid stenosis. Head CTA 07/06/18 00:00 IMPRESSION: Cross-filling of the left system via patent anterior communicator, as the left carotid is occluded. There is atherosclerotic change of the left middle cerebral vessel with decreased flow on the left compared to the right. Neck CTA 07/06/18 00:00 IMPRESSION: Less than 50% stenosis of the right ICA but extensive plaque at the origin of the ICA. Complete occlusion of the left common carotid artery just distal to the origin. No contrast in the ICA or ECA. Widely patent left vertebral which arises from the aortic arch. Assessment and Plan - Diagnosis (1) Acute ischemic multifocal multiple vascular territories stroke Is this a current diagnosis for this admission?: Yes Plan: Patient presented with report of 3 days of expressive aphasia and odd behaviors. Head CT demonstrated Mild periventricular and patchy subcortical white matter low attenuation. Follow-up head MRI demonstrated findings compatible with multifocal acute infarcts throughout the left circumflex hemisphere in an MCA distribution. Hyperintense T1 signal located about the left M2 segment concerning for intraluminal thrombus. Carotid Doppler showed poor visualization of the left carotid vessel but with extensive plaque and diminished waveforms suspicious for high-grade stenosis. N o hemodynamically significant stenosis on the right. Echocardiogram revealed LVEF 50-60%; bubble study not available. No clear intra-cardiac source of thrombus. Head and neck CTA demonstrated <50% occlusion of the right ICA, 100% occlusion of the left ICA with cross-filling of the left system via patent anterior communicator. Troponins are negative x3, lipid panel reveals hyperlipidemia. Per family, patient had recently been diagnosed with PAF. He was scheduled to have a follow-up appointment in arrangement for event monitor sometime this month. Had not yet started chronic anticoagulation therapy. HAS-BLED score is 4 points; 8.9% yearly major bleeding event risk. [id number] score is 4 points; 4.8 yearly CVA event. Relative stroke and bleeding risks were reviewed with family members. Arrangements have been made for the patient to have a SHERRY at [facility] on Sunday at 1015; needs to arrived to their facility by 915. Spoke w/ Dr. Boubacar Jon w/ regard to neck CTA results. Dr. Jon advises that the patient would not be a candidate for carotid endarterectomy at this time; recommends neurology consultation. Called [facility] and spoke with Dr. Cornelius (neurology). She confirms that there is a 6-hour window for thrombectomy in a patient presenting with his similar f indings. As the patient presented after approximately 3 days of symptoms, he was outside the window upon arrival to the emergency department. She recommends dual antiplatelet therapy with aspirin 81 mg and Plavix 75 mg daily. Patient is admitted to [facility] on continuous cardiac telemetry. He is placed on aspirin, Plavix, and statin therapy. Family states that they will like to discuss chronic anticoagulation after obtaining SHERRY results. Dr. Silvestre Weaver consulted; physical therapy recommending acute rehabilitation. PT/OT/ST therapy consultations ordered. Discharge planning consulted. Full dose Lovenox is discontinued; we will continue heparin 5000 units subcu every 8 for DVT prophylaxis. (2) Alcohol dependence Qualifiers: Substance use status: in withdrawal Is this a current diagnosis for this admission?: Yes Plan: Patient acknowledges heavy daily EtOH use. Doing well; no symptoms of withdrawal today. Have weaned Valium; will discontinue today. IV Ativan as needed for anxiety, agitation, withdrawal symptoms. Daily thiamine and folate supplementation Fall, seizure, and aspiration precautions. (3) Aphasia Is this a current diagnosis for this admission?: Yes Plan: Secondary to #1, speech therapy ordered. (4) Tobacco dependence Is this a current diagnosis for this admission?: Yes Plan: Smoking cessation is encouraged, nicotine replacement therapies are provided. (5) Atrial fibrillation Qualifiers: Qualified Code(s): I48.0 - Paroxysmal atrial fibrillation Is this a current diagnosis for this admission?: Yes Plan: Patient's family reports history of PAF; was making arrangements to obtain event monitor through his [employer] (Dr. Easton) prior to CVA. He has been in sinus rhythm since arrival to the telemetry floor. Continue atenolol 25 mg daily. Continue daily aspirin and plavix therapy. Have arranged for SHERRY to determine need for chronic anticoagulation: HAS-BLED score is 4 points; 8.9% yearly major bleeding event risk. [id number] score is 4 points; 4.8% yearly CVA event risk. (6) Hypotension Is this a current diagnosis for this admission?: Yes Plan: Resolved. (7) Hypokalemia Is this a current diagnosis for this admission?: Yes Plan: Likely secondary to poor p.o. intake. Replaced with oral potassium today. We will monitor daily chemistry and continue to replace as necessary. - Time Time Spent with patient: 35 or more minutes Medications reviewed and adjusted accordingly: Yes Anticipated discharge: Acute Rehab Within: within 72 hours - needs SHERRY; arranged for Sunday at [facility]
[2018-07-08] MEDS: THIAMINE HCL 100 MG, FOLIC ACID 1 MG in NORMAL SALINE 250 ML IV SCH (21:25)
[2018-07-08] MEDS: ATORVASTATIN CALCIUM 80 MG TABLET PO SCH (21:31)
[2018-07-09] MEDS: HEPARIN SOD (PORCINE) 5,000 UNIT/ML 1 ML SYRINGE SUBCUT SCH ×3 (05:34→21:26)
[2018-07-09 07:25] LABS: HEMATOCRIT 37.9 % (37.9-51.0); HEMOGLOBIN 12.7 g/dL (13.5-17.0); MEAN CORPUSCULAR HGB CONC 33.7 g/dL (32.0-36.0); MEAN CORPUSCULAR VOLUME 89 fl (80-97); PLATELET COUNT 156 10^3/uL (150-450); RED BLOOD COUNT 4.25 10^6/uL (4.35-5.55); RED CELL DISTRIBUTION WIDTH 15.9 % (11.5-14.0); WHITE BLOOD COUNT 6.1 10^3/uL (4.0-10.5)
[2018-07-09 08:01] LABS: ANION GAP 9 (5-19); BLOOD UREA NITROGEN 14 mg/dL (7-20); CALCIUM 10.4 mg/dL (8.4-10.2); CARBON DIOXIDE 22 mmol/L (22-30); CHLORIDE 109 mmol/L (98-107); GLUCOSE 89 mg/dL (75-110); POTASSIUM 3.7 mmol/L (3.6-5.0)
[2018-07-09] MEDS: IPRATROPIUM/ALBUTEROL 0.5-2.5 MG/3 ML AMPUL NEB SCH ×2 (08:33→20:01)
[2018-07-09] MEDS: NICOTINE 21 MG/24 HR PATCH.TD24 TD SCH (10:15)
[2018-07-09] MEDS: POLYETHYLENE GLYCOL 3350 POWDER 17 GM/1 PACKET PO SCH (10:15)
[2018-07-09] MEDS: GABAPENTIN 100 MG CAPSULE PO SCH ×2 (10:18→21:29)
[2018-07-09] MEDS: ATENOLOL 50 MG TABLET PO SCH (10:18)
[2018-07-09] MEDS: TAMSULOSIN HCL 0.4 MG CAP.SR.24H PO SCH (10:19)
[2018-07-09] MEDS: SERTRALINE HCL 50 MG TABLET PO SCH (10:19)
[2018-07-09] MEDS: PANTOPRAZOLE SODIUM 40 MG TABLET.DR PO SCH ×2 (10:20→17:39)
[2018-07-09] MEDS: ASPIRIN 81 MG TABLET, CHEWABLE PO SCH (10:20)
[2018-07-09] MEDS: SUCRALFATE 1 GM TABLET PO SCH ×4 (10:21→21:28)
[2018-07-09] MEDS: CLOPIDOGREL BISULFATE 75 MG TABLET PO SCH (10:21)
[2018-07-09] MEDS: FOLIC ACID 1 MG TABLET PO SCH (10:21)
--- NOTE | 2018-07-09 14:42 | PDOC CONSULTATION ---
Consultation Consult Date: 07/09/18 Consult reason:: Evaluation for admission to acute inpatient rehabilitation History of Present Illness Admission Date/PCP: 07/05/18 23:57 GEORGE GAYTAN DO Patient complains of: Peripheral neuropathy History of Present Illness: GONZÁLEZ PANDEY is a 72-year-old right-handed male with past medical history of chronic alcohol use, chronic tobacco use, recent diagnosis of paroxysmal atrial fibrillation not on anticoagulation, dyslipidemia, peripheral neuropathy, chroni c back pain, hypertension, shingles, chronic bronchitis, pancreatitis, GERD, hernia repair, and bowel surgery as a child admitted to the [facility] on 07/05/2018 after presenting with a 2-day history of altered mental status described as confusion, difficulty speaking, and difficulty with comprehension and being found to have hypotension, expressive and receptive aphasia, and MRI positive for multifocal acute infarcts throughout the left cerebral hemisphere in an MCA distribution with possible intraluminal thrombus in the left M2 segment. Echocardiogram demonstrated LVEF of 60-65% with mild mitral regurgitation, mild to moderate tricuspid regurgitation, trace pulmonic regurgitation, and focal calcification of the aortic valve. Carotid duplex demonstrated extensive plaque with diminished waveforms suspicious for high- grade stenosis of the left carotid vessels and no hemodynamically significant right internal carotid artery stenosis. CT angiogram of the head demonstrated cross-filling of the left system via patent anterior communicator as the left carotid is occluded as well as atherosclerotic change of the left middle cerebral vessel with decreased flow on the left compared to the right. CT angiogram of the neck confirmed less than 50% stenosis of the right ICA but extensive plaque with complete occlusion at the origin of the left ICA. Laboratory studies demonstrated total cholesterol of 215, LDL of 170, and serum alcohol of less than 10 mg/dL. The patient was started on aspirin 81 mg daily, Plavix 75 mg daily, and atorvastatin 80 mg nightly for secondary stroke prophylaxis following discussion with neurology and vascular surgery at tertiary care centers. Also recommended was a transesophageal echocardiogram, after which the family will make a decision regarding anticoagulation for the paroxysmal atrial fibrillation. The SHERRY is scheduled for 07/10/2018. Additionally, the patient was treated for his alcohol and tobacco dependence, although it does not appear that he was in acute withdrawal. Physical medicine and rehabilitation consultation was requested to evaluate the patient for admission to acute inpatient rehabilitation. Today, the patient was seen and examined with his brother and sister at bedside. The patient is more verbal and interactive today compared to what the notes indicate from previous days, but he still has difficulty with providing a reliable history and review of systems. He states that he feels okay, but he does mention that he has neuropathy. 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 He drinks approximately 6 beers per day and smokes 1- 2 packs of cigarettes per day and has done so for decades. He has 4 siblings that may be able to provide some assistance upon discharge, but the 2 that are present report that this depends on how much she is able to do for himself. Prior Functional Status: Active and independent with mobility and all ADLs. Ambulates without an assist device. Current Functional Status: Per therapy notes, the patient currently requires modified independence to standby assistance for bed mobility, standby assistance for transfers, contact-guard assistance for regulation of 70 feet with a rolling walker, and contact-guard to standby assistance for lower body dressing. Patient was evaluated by speech therapy and is currently on a regular solids with thin liquids diet but he does have cognitive and communication deficits that are being treated. - Advance Directive Resuscitation Status: Full Code Family History Family History: CAD, Malignancy Parental Family History Reviewed: Yes Children Family History Reviewed: Yes Sibling(s) Family History Reviewed.: Yes Medication/Allergy Home Medications: Amlodipine Besylate [Norvasc 10 mg Tablet] 10 mg PO DAILY 07/06/18 Atenolol [Tenormin 100 mg Tablet] 100 mg PO DAILY 07/06/18 Atorvastatin Calcium [Lipitor 40 mg Tablet] 40 mg PO DAILY 07/06/18 Buspirone HCl [Buspar 5 mg Tablet] 5 mg PO BID 07/06/18 Folic Acid [Folvite 1 mg Tablet] 1 mg PO DAILY 07/06/18 Furosemide [Lasix 40 mg Tablet] 40 mg PO BID 07/06/18 Gabapentin [Neurontin] 600 mg PO BID 07/06/18 Hydrocodone/Acetaminophen [[place] 10-325 mg Tablet] 1 tab PO Q4 07/06/18 Lidocaine [Lidoderm 5% (700 mg) Transdermal Patch] 3 patch TP DAILY 07/06/18 Oxymorphone HCl [Oxymorphone HCl ER] 10 mg PO Q12 07/06/18 Pantoprazole Sodium [Protonix [address] Tablet] 40 mg PO DAILY 07/06/18 Pregabalin [Lyrica 75 mg Capsule] 75 mg PO Q12 07/06/18 Sucralfate [Carafate 1 gm Tablet] 1 gm PO QID 07/06/18 Tamsulosin HCl [Flomax] 0.8 mg PO DAILY 07/06/18 Allergies/Adverse Reactions: No Known Allergies Allergy (Verified 07/05/18 21:30) Review of Systems Review of Systems: This review of systems is unreliable due to the patient's confusion: Constitutional: No fevers, chills, sweats, weight loss Eye: He states that he can only see out of the left side, but this does not seem to be accurate. ENMT: No ear pain, nasal congestion, sore throat Respiratory: No shortness of breath, cough, sputum production Cardiovascular: No chest pain, palpitations, syncope Gastrointestinal: No nausea, vomiting, diarrhea, abdominal pain Genitourinary: No hematuria, dysuria, flank or suprapubic pain Enrike/Lymph: Negative for bruising tendency, swollen lymph glands Endocrine: Negative for excessive thirst, excessive hunger, extreme fatigue Musculoskeletal: Positive for history of chronic back pain. Integumentary: No rash, pruritus, abrasions Neurologic: No focal weakness, numbness, speech problems. Positive for headache. Psychiatric: No anxiety, depression Physical Exam Vital Signs: Temp Pulse Resp BP Pulse Ox 98.3 F 88 21 H 143/71 H 98 07/09/18 07:34 07/09/18 08:33 07/09/18 08:33 07/09/18 07:34 07/09/18 08:33 Intake & Output 04/07/09/18 07/10/18 06:59 06:59 06:59 Intake Total 805.2 1130.2 237 Output Total 50 Balance 755.2 1130.2 237 Weight 69.6 kg 64.1 kg Exam: General: Awake and Alert. No acute distress. Resting comfortably in bed with his sister and brother at bedside. Head: Normocephalic. Atraumatic. Eyes: Pupils equal, round, and reactive to light. EOMI. Sclera white. Ears: No drainage noted. Nose: Nares normal & without exudate. Oropharynx: Somewhat dry mucous membranes. Neck: Supple movements. Cardiovascular: Regular rate & rhythm. No murmurs, rubs, or gallops appreciated. Pulmonary: Lungs clear to auscultation bilaterally. No increased work of breathing. Gastrointestinal: Abdomen soft, non-tender, non-distended. Normoactive bowel sounds. Skin: Texture and turgor normal. Warm and dry. Psychiatric: Judgment and insight appear to be poor to fair. He is oriented to self and location but not to date. Affect is flat. Extremities: Arthritic changes of the hands and feet are noted. Neurological: CN III-XII grossly intact. Sensation to light touch is grossly intact. Tone is normal. No Nesbitt's. Speech is fluent at times and at other times incoherent. Muscle Strength: He has at least 4/5 strength of all major muscle groups in the upper and lower extremities. Results Laboratory Results: 07/09/18 06:34 07/09/18 06:34 07/09/18 07/09/18 06:34 06:34 WBC 6.1 RBC 4.25 L Hgb 12.7 L Hct 37.9 MCV 89 MCH 30.0 MCHC 33.7 RDW 15.9 H Plt Count 156 Sodium 140.0 Potassium 3.7 Chloride 109 H Carbon Dioxide 22 Anion Gap 9 BUN 14 Creatinine 0.91 Est GFR ( Amer) > 60 Est GFR (Non-Af Amer) > 60 Glucose 89 Calcium 10.4 H Magnesium 2.3 07/05/18 07/05/18 07/05/18 19:14 23:46 23:46 Creatine Kinase 45 L CK-MB (CK-2) 0.31 Troponin I < 0.012 < 0.012 07/06/18 07/06/1819 06:03 06:03 11:53 Creatine Kinase 36 L 36 L CK-MB (CK-2) 0.29 Troponin I < 0.012 07/06/18 11:53 Creatine Kinase CK-MB (CK-2) 0.35 Troponin I < 0.012 Impressions: Chest X-Ray 07/05/18 00:00 IMPRESSION: NO ACUTE RADIOGRAPHIC FINDING IN THE CHEST. Head CT 07/05/18 00:00 IMPRESSION: NORMAL BRAIN CT WITHOUT CONTRAST. EVIDENCE OF ACUTE STROKE: NO. Head MRI 07/05/18 20:24 IMPRESSION: Findings compatible with multifocal acute infarcts throughout the left cerebral hemisphere in an MCA distribution, as above described. No evidence of significant midline shift, mass effect, or intracranial hemorrhage. Hyperintense T1 signal located about the left M2 segment raises the possibility of intraluminal thrombus at this location. copyright 2010 [employer]- All Rights Reserved Carotid Doppler Study 07/06/18 00:00 IMPRESSION: 1. Poor visualization of the left carotid vessels, extensive plaque with diminished waveforms. Suspect high-grade stenosis. If clinically warranted, CTA of the neck vessels may help to better delineate the extent of disease. 2. No hemodynamically significant right internal carotid stenosis. Head CTA 07/06/18 00:00 IMPRESSION: Cross-filling of the left system via patent anterior communicator, as the left carotid is occluded. There is atherosclerotic change of the left middle cerebral vessel with decreased flow on the left compared to the right. Neck CTA 07/06/18 00:00 IMPRESSION: Less than 50% stenosis of the right ICA but extensive plaque at the origin of the ICA. Complete occlusion of the left common carotid artery just distal to the origin. No contrast in the ICA or ECA. Widely patent left vertebral which arises from the aortic arch. Assessment and Plan - Plan Summary Plan Summary: 72-year-old male with left hemispheric CVA, alcohol dependence, and paroxysmal atrial fibrillation. 1. Gait and ADL Dysfunction secondary to left hemispheric CVA, alcohol dependence, and paroxysmal atrial fibrillation. - Continue PT and OT to maximize mobility, safety, endurance, and self-care. 2. Left hemispheric CVA without hemiparesis - Needs continued PT & OT & NUT ORCHARDIST to maximize functional mobility, safety and self-care as well as communication needs & swallow function. Risk Factor Modification: - Hypertension: Dietary and activity modifications, avoid hypotension and hypertension - Glycemic Control: Consider checking hemoglobin A1c, continue dietary and activity modifications, avoid hyperglycemia and hypoglycemia - Lipids: LDL is 170, continue dietary and activity modifications, continue statin - Smoking: Discussed smoking cessation - Alcohol: Discussed alcohol intake - Antiplatelet: Continue aspirin 81 mg daily and Plavix 75 mg daily. - Cardioembolic Event: The patient has proximal is more atrial fibrillation, and there is a SHERRY planned for tomorrow. There is still a question of whether anticoagulation will be initiated. - Vascular: The patient has complete occlusion of the left carotid system with no hemodynamically significant stenosis on the right. At this point, he is felt not to be a surgical candidate for carotid endarterectomy and recommended continuation of aspirin and Plavix. He may benefit from outpatient follow-up with vascular surgery. Dysphagia: - Bedside swallow evaluation completed. - Continue regular solids with thin liquids diet. - Aspiration precautions, NUT ORCHARDIST following. VTE Prophylaxis: - Continue SQ heparin Risk of Spasticity: - Continue ROM, positioning. - The patient does not have increased tone. Risk of Contractures: - Continue ROM, positioning. Risk of Constipation: - Continue dietary modifications and encourage fluid intake. - Bowel protocol. Risk of Neurogenic Bladder/UTI: - Monitor for retention, incontinence, UTI. - Have patient attempt to void every 3 hours. Encourage patient to be upright to void and to double void. Perform POST VOID residual bladder scan at least once each shift. Record amount voided and post void residual amount. Perform intermittent catheterization if more than 250 ml post void residual urine. Risk of Skin Breakdown: - Frequent turning/position changes. - Optimize nutritional status. 3. Paroxysmal atrial fibrillation - Currently in normal sinus rhythm - SHERRY planned for tomorrow - The family will decide about moving ahead with anticoagulation after the SHERRY - Continue management per hospitalist medicine 4. Alcohol dependence - No signs of acute withdrawal at this time - Continue vitamin supplementation and further management per hospitalist medicine 5. Disposition - Based on the patient's diagnosis, medical co-morbidities, and current functional status, he MAY BE a candidate for acute inpatient rehabilitation but this is yet to be determined. The patient did quite well functionally in physical therapy and occupational therapy evaluations yesterday and today, which can likely be attributed to his increased alertness and ability to comprehend and follow commands. Part of the medical workup is pending, and as this is completed, the patient may continue to improve functionally to the point that he can be discharged home with 24-hour supervision from his siblings and outpatient physical therapy/Occupational Therapy/speech therapy. If the family is unable to provide 24-hour supervision, he may benefit from a prolonged, less intensive course of rehabilitation that can be provided at the subacute level. However, if the patient does not progress functionally as expected, then he may qualify for acute inpatient rehabilitation. A final recommendation will be made in the next day or 2 as his medical workup is completed. This case was discussed with the patient's acute care therapists, senior materials planner, and nurse on the floor. Thank you for allowing us to participate in the care of this patient. Please call with any questions. A total of 75 minutes was spent on [id number] communication with the patient and coordination of care.
--- NOTE | 2018-07-09 20:41 | PDOC PROGRESS REPORT ---
Subjective Progress Note for:: 07/09/18 Subjective:: HOLLI PANDEY is a 72 year old male with a past medical history of atrial fibrillation without anticoagulation, dyslipidemia, hypertension, zoster, chronic bronchitis, pancreatitis and alcohol dependence who was admitted 07/05/2018 for acute ischemic multifocal vascular territory stroke. The patient was seen on rounds, he is resting in bed with his brother at the bedside. Patient is oriented to self and place. He is not able to tell me the year. The patient is able to follow all commands. No evidence of a facial droop. (+) R pronator drift. Very mild RLE weakness. Patient worked with PT today and was able to walk approximately 70 ft. with a front wheeled walker. SHERRY planned for tomorrow at [facility] in [place], [place]. Concerned because the patient lives by himself and is still not completely oriented. Recommend acute rehab following this hospitalization. Reason For Visit: CVA AFIB APHASIA Physical Exam Vital Signs: Temp Pulse Resp BP Pulse Ox 98.6 F 73 16 128/76 H 99 07/09/18 15:07 07/09/18 15:07 07/09/18 15:07 07/09/18 15:07 07/09/18 15:07 Intake & Output 07/08/18 07/09/18 07/10/18 06:59 06:59 06:59 Intake Total 805.2 1130.2 689 Output Total 50 Balance 755.2 1130.2 689 Weight 69.6 kg 64.1 kg General appearance: PRESENT: disheveled Head exam: PRESENT: atraumatic Eye exam: PRESENT: PERRLA, scleral icterus Mouth exam: PRESENT: moist, tongue midline Neck exam: PRESENT: full ROM Respiratory exam: PRESENT: clear to auscultation my, symmetrical, unlabored Cardiovascular exam: PRESENT: RRR Pulses: PRESENT: normal radial pulses, normal dorsalis pedis pul Vascular exam: PRESENT: normal capillary refill GI/Abdominal exam: PRESENT: distended, normal bowel sounds, soft Rectal exam: PRESENT: deferred Extremities exam: PRESENT: other - RUE PRONATOR DRIFT. MILD RLE WEAKNESS. ABSENT: full ROM, pedal edema Musculoskeletal exam: PRESENT: ambulatory - with walker and standby assist, full ROM Neurological exam: PRESENT: alert, awake, oriented to person, oriented to place. ABSENT: oriented to time, oriented to situation Skin exam: PRESENT: dry, intact, jaundice Results Laboratory Results: 07/09/18 06:34 07/09/18 06:34 07/09/18 07/09/18 06:34 06:34 WBC 6.1 RBC 4.25 L Hgb 12.7 L Hct 37.9 MCV 89 MCH 30.0 MCHC 33.7 RDW 15.9 H Plt Count 156 Sodium 140.0 Potassium 3.7 Chloride 109 H Carbon Dioxide 22 Anion Gap 9 BUN 14 Creatinine 0.91 Est GFR ( Amer) > 60 Est GFR (Non-Af Amer) > 60 Glucose 89 Calcium 10.4 H Magnesium 2.3 07/05/18 07/05/18 07/05/18 19:14 23:46 23:46 Creatine Kinase 45 L CK-MB (CK-2) 0.31 Troponin I < 0.012 < 0.012 07/06/18 07/06/18 07/06/18 06:03 06:03 11:53 Creatine Kinase 36 L 36 L CK-MB (CK-2) 0.29 Troponin I < 0.012 07/06/18 11:53 Creatine Kinase CK-MB (CK-2) 0.35 Troponin I < 0.012 Impressions: Chest X-Ray 07/05/18 00:00 IMPRESSION: NO ACUTE RADIOGRAPHIC FINDING IN THE CHEST. Head CT 07/05/18 00:00 IMPRESSION: NORMAL BRAIN CT WITHOUT CONTRAST. EVIDENCE OF ACUTE STROKE: NO. Head MRI 07/05/18 20:24 IMPRESSION: Findings compatible with multifocal acute infarcts throughout the left cerebral hemisphere in an MCA distribution, as above described. No evidence of significant midline shift, mass effect, or intracranial hemorrhage. Hyperintense T1 signal located about the left M2 segment raises the possibility of intraluminal thrombus at this location. copyright 2010 [employer]- All Rights Reserved Carotid Doppler Study 07/06/18 00:00 IMPRESSION: 1. Poor visualization of the left carotid vessels, extensive plaque with dimi nished waveforms. Suspect high-grade stenosis. If clinically warranted, CTA of the neck vessels may help to better delineate the extent of disease. 2. No hemodynamically significant right internal carotid stenosis. Head CTA 07/06/18 00:00 IMPRESSION: Cross-filling of the left system via patent anterior communicator, as the left carotid is occluded. There is atherosclerotic change of the left middle cerebral vessel with decreased flow on the left compared to the right. Neck CTA 07/06/18 00:00 IMPRESSION: Less than 50% stenosis of the right ICA but extensive plaque at the origin of the ICA. Complete occlusion of the left common carotid artery just distal to the origin. No contrast in the ICA or ECA. Widely patent left vertebral which arises from the aortic arch. Status: Imported from PACS Assessment and Plan - Diagnosis (1) Acute ischemic multifocal multiple vascular territories stroke Is this a current diagnosis for this admission?: Yes Plan: Patient presented with report of 3 days of expressive aphasia and odd behaviors. Head CT demonstrated Mild periventricular and patchy subcortical white matter low attenuation. Follow-up MRI showed findings compatible with multifocal acute infarcts throughout the L circumflex hemisphere in an MCA distribution. Hyperintense T1 signal located about the left M2 segment concerning for intraluminal thrombus. Carotid Doppler showed poor visualization of the left carotid vessel but with extensive plaque and diminished waveforms suspicious for high-grade stenosis. No hemodynamically significant stenosis on the right. Echocardiogram revealed LVEF 50-60%; No clear intra-cardiac source of thrombus. Head and neck CTA demonstrated <50% occlusion of the right ICA, 100% occlusion of the left ICA with cross-filling of the left system via patent anterior communicator. Troponins are negative x3, no longer trending Per family, patient had recently been diagnosed with PAF. He was scheduled to have a follow-up appointment in arrangement for event monitor sometime this month. Had not yet started chronic anticoagulation therapy. HAS-BLED score is 4 points; 8.9% yearly major bleeding event risk. [id number] score is 4 points; 4.8 yearly CVA event. Relative stroke and bleeding risks were reviewed with family members. Arrangements have been made for the patient to have a SHERRY at [facility] on tomorrow at 1015 Spoke w/ Dr. Boubacar Jon w/ regard to neck CTA results. Dr. Jon advises that the patient would not be a candidate for carotid endarterectomy at this time; recommends neurology consultation. Previous provider called [facility] and spoke with Dr. Cornelius (neurology). She confirms that there is a 6-hour window for thrombectomy in a patient presenting with his similar findings. As the patient presented after approximately 3 days of symptoms, he was outside the window upon arrival to the emergency department. She recommends dual antiplatelet therapy with aspirin 81 mg and Plavix 75 mg daily. Patient is admitted to [facility] on continuous cardiac telemetry. Continue aspirin, Plavix, and statin therapy. Family states that they will like to discuss chronic anticoagulation after obtaining SHERRY results. Dr. Silvestre Weaver consulted; physical therapy recommending acute rehabilitation. PT/OT/ST therapy consultations ordered. Discharge planning consulted. Heparin 5000 units SC every 8 for DVT prophylaxis. (2) Alcohol dependence Qualifiers: Substance use status: in withdrawal Is this a current diagnosis for this admission?: Yes Plan: Patient acknowledges heavy daily EtOH use. No symptoms of withdrawal today. +scleral icterus and mild jaundice IV Ativan as needed for anxiety, agitation, withdrawal symptoms. Daily thiamine and folate supplementation Fall, seizure, and aspiration precautions. (3) Aphasia Is this a current diagnosis for this admission?: Yes Plan: Secondary to #1, speech therapy ordered. (4) Atrial fibrillation Qualifiers: Atrial fibrillation type: paroxysmal Qualified Code(s): I48.0 - Paroxysmal atrial fibrillation Is this a current diagnosis for this admission?: Yes Plan: Patient's family reports history of paroxysmal AFIB, was making arrangements to obtain event monitor through his shipping room supervisor (Dr. Easton) prior to CVA. NSR since arrival to [facility] Atenolol 25 mg daily. Daily aspirin and plavix therapy. Have arranged for SHERRY to determine need for chronic anticoagulation: HAS-BLED score is 4 points; 8.9% yearly major bleeding event risk. [id number] score is 4 points; 4.8% yearly CVA event risk. (5) Tobacco dependence Is this a current diagnosis for this admission?: Yes Plan: Smoking cessation is encouraged, nicotine replacement therapies are provided. - Time Medications reviewed and adjusted accordingly: Yes Anticipated discharge: Acute Rehab Within: within 36 hours - Inpatient Certification Based on my medical assessment, after consideration of the patient's comorbidities, presenting symptoms, or acuity I expect that the services needed warrant INPATIENT care.: Yes I certify that my determination is in accordance with my understanding of Medicare's requirements for reasonable and necessary INPATIENT services [42 CFR 412.3e].: Yes Medical Necessity: Risk of Complication if Not Cared For in Hospital
[2018-07-09] MEDS: THIAMINE HCL 100 MG, FOLIC ACID 1 MG in NORMAL SALINE 250 ML IV SCH (21:26)
[2018-07-09] MEDS: ATORVASTATIN CALCIUM 80 MG TABLET PO SCH (21:29)
[2018-07-10] MEDS: HEPARIN SOD (PORCINE) 5,000 UNIT/ML 1 ML SYRINGE SUBCUT SCH ×3 (05:03→21:26)
[2018-07-10 08:05] LABS: HEMATOCRIT 36.5 % (37.9-51.0); HEMOGLOBIN 12.3 g/dL (13.5-17.0); MEAN CORPUSCULAR HGB CONC 33.8 g/dL (32.0-36.0); MEAN CORPUSCULAR VOLUME 89 fl (80-97); PLATELET COUNT 163 10^3/uL (150-450); RED BLOOD COUNT 4.11 10^6/uL (4.35-5.55); RED CELL DISTRIBUTION WIDTH 15.8 % (11.5-14.0); WHITE BLOOD COUNT 7.2 10^3/uL (4.0-10.5)
[2018-07-10] MEDS: IPRATROPIUM/ALBUTEROL 0.5-2.5 MG/3 ML AMPUL NEB SCH ×2 (08:57→19:53)
[2018-07-10] MEDS: ASPIRIN 81 MG TABLET, CHEWABLE PO SCH (10:43)
[2018-07-10] MEDS: SUCRALFATE 1 GM TABLET PO SCH ×4 (10:43→21:26)
[2018-07-10] MEDS: FOLIC ACID 1 MG TABLET PO SCH (10:43)
[2018-07-10] MEDS: POLYETHYLENE GLYCOL 3350 POWDER 17 GM/1 PACKET PO SCH (10:43)
[2018-07-10] MEDS: TAMSULOSIN HCL 0.4 MG CAP.SR.24H PO SCH (10:43)
[2018-07-10] MEDS: GABAPENTIN 100 MG CAPSULE PO SCH ×2 (10:43→21:25)
[2018-07-10] MEDS: NICOTINE 21 MG/24 HR PATCH.TD24 TD SCH (10:44)
[2018-07-10] MEDS: PANTOPRAZOLE SODIUM 40 MG TABLET.DR PO SCH ×2 (10:44→17:29)
[2018-07-10] MEDS: SERTRALINE HCL 50 MG TABLET PO SCH (10:44)
[2018-07-10] MEDS: ATENOLOL 50 MG TABLET PO SCH (10:44)
[2018-07-10] MEDS: CLOPIDOGREL BISULFATE 75 MG TABLET PO SCH (10:44)
--- NOTE | 2018-07-10 21:15 | PDOC PROGRESS REPORT ---
Subjective Progress Note for:: 07/10/18 Subjective:: HOLLI PANDEY is a 72 year old male with a past medical history of atrial fibrillation without anticoagulation, dyslipidemia, hypertension, zoster, chronic bronchitis, pancreatitis and alcohol dependence who was admitted 07/05/2018 for acute ischemic multifocal vascular territory stroke. The patient was seen on rounds, he retuned from [facility] following his SHERRY. The results were negative for a cardiac source of his embolic stroke. Patient is oriented to self and place. He is not able to tell me the year. The patient is able to follow all commands but when left alone acts impulsively. No evidence of a facial droop. (+) R pronator drift. Very mild RLE weakness. Recommending acute rehab. Patient is not appropriate to return home because he is not safe to return to a living environment by himself. Reason For Visit: CVA AFIB APHASIA Physical Exam Vital Signs: Temp Pulse Resp BP Pulse Ox 98.7 F 86 16 156/77 H 96 07/10/18 16:33 07/10/18 20:27 07/10/18 19:54 07/10/18 16:33 07/10/18 19:54 Intake & Output 07/09/18 07/10/18 07/11/18 06:59 06:59 06:59 Intake Total 1130.2 940.2 1242 Balance 1130.2 940.2 1242 Weight 64.1 kg 62.3 kg General appearance: PRESENT: well-developed, well-nourished Eye exam: PRESENT: PERRLA, scleral icterus Mouth exam: PRESENT: moist, tongue midline Neck exam: PRESENT: full ROM Respiratory exam: PRESENT: clear to auscultation my, symmetrical, unlabored Cardiovascular exam: PRESENT: RRR Pulses: PRESENT: normal radial pulses, normal dorsalis pedis pul GI/Abdominal exam: PRESENT: distended, normal bowel sounds, soft, other - rounded Rectal exam: PRESENT: deferred Extremities exam: PRESENT: full ROM Musculoskeletal exam: PRESENT: ambulatory - with assistance, full ROM Neurological exam: PRESENT: alert, awake, oriented to person, oriented to place, oriented to situation. ABSENT: oriented to time Psychiatric exam: PRESENT: other - impulsive. ABSENT: appropriate affect Skin exam: PRESENT: dry, intact, jaundice Results Laboratory Results: 07/10/18 06:53 07/09/18 06:34 07/10/18 06:53 WBC 7.2 RBC 4.11 L Hgb 12.3 L Hct 36.5 L MCV 89 MCH 30.0 MCHC 33.8 RDW 15.8 H Plt Count 163 07/05/18 07/05/18 07/05/18 19:14 23:46 23:46 Creatine Kinase 45 L CK-MB (CK-2) 0.31 Troponin I < 0.012 < 0.012 07/06/18 07/06/18 07/06/18 06:03 06:03 11:53 Creatine Kinase 36 L 36 L CK-MB (CK-2) 0.29 Troponin I < 0.012 07/06/18 11:53 Creatine Kinase CK-MB (CK-2) 0.35 Troponin I < 0.012 Impressions: Chest X-Ray 07/05/18 00:00 IMPRESSION: NO ACUTE RADIOGRAPHIC FINDING IN THE CHEST. Head CT 07/05/18 00:00 IMPRESSION: NORMAL BRAIN CT WITHOUT CONTRAST. EVIDENCE OF ACUTE STROKE: NO. Head MRI 07/05/18 20:24 IMPRESSION: Findings compatible with multifocal acute infarcts throughout the left cerebral hemisphere in an MCA distribution, as above described. No evidence of significant midline shift, mass effect, or intracranial hemorrhage. Hyperintense T1 signal located about the left M2 segment raises the possibility of intraluminal thrombus at this location. copyright 2011 [employer]- All Rights Reserved Carotid Doppler Study 07/06/18 00:00 IMPRESSION: 1. Poor visualization of the left carotid vessels, extensive plaque with diminished waveforms. Suspect high-grade stenosis. If clinically warranted, CTA of the neck vessels may help to better delineate the extent of disease. 2. No hemodynamically significant right internal carotid stenosis. Head CTA 07/06/18 00:00 IMPRESSION: Cross-filling of the left system via patent anterior communicator, as the left carotid is occluded. There is atherosclerotic change of the left middle cerebral vessel with decreased flow on the left compared to the right. Neck CTA 07/06/18 00:00 IMPRESSION: Less than 50% stenosis of the right ICA but extensive plaque at the origin of the ICA. Complete occlusion of the left common carotid artery just distal to the origin. No contrast in the ICA or ECA. Widely patent left vertebral which arises from the aortic arch. Status: Imported from PACS Assessment and Plan - Diagnosis (1) Acute ischemic multifocal multiple vascular territories stroke Is this a current diagnosis for this admission?: Yes Plan: Patient presented with report of 3 days of expressive aphasia and odd behaviors. Head CT demonstrated Mild periventricular and patchy subcortical white matter low attenuation. Follow-up MRI showed findings compatible with multifocal acute infarcts throug hout the L circumflex hemisphere in an MCA distribution. Hyperintense T1 signal located about the left M2 segment concerning for intraluminal thrombus. Carotid Doppler showed poor visualization of the left carotid vessel but with extensive plaque and diminished waveforms suspicious for high-grade stenosis. No hemodynamically significant stenosis on the right. Echocardiogram revealed LVEF 50-60%; No clear intra-cardiac source of thrombus. Head and neck CTA demonstrated <50% occlusion of the right ICA, 100% occlusion of the left ICA with cross-filling of the left system via patent anterior com municator. Troponins are negative x3, no longer trending Per family, patient had recently been diagnosed with paroxysmal AFIB. He was scheduled to have a follow-up appointment for event monitor sometime this month. Had not yet started chronic anticoagulation therapy. HAS-BLED score is 4 points; 8.9% yearly major bleeding event risk. [id number] score is 4 points; 4.8 yearly CVA event. Relative stroke and bleeding risks were reviewed with family members. Do not recommend anticoagulation due to patient's heavy ETOH use and his propensity for falling Dr. Boubacar Jon consulted regarding the neck CTA results. Dr. Jon advises that the patient would not be a candidate for carotid endarterectomy at this time; recommends neurology consultation. Previous provider called [facility] and spoke with Dr. Cornelius (neurology). She confirms that there is a 6-hour window for thrombectomy in a patient presenting with his similar findings. As the patient presented after approximately 3 days of symptoms, he was outside the window upon arrival to the emergency department. She recommends dual antiplatelet therapy with aspirin 81 mg and Plavix 75 mg daily. Patient is admitted to [facility] on continuous cardiac telemetry. Continue aspirin, Plavix, and statin therapy. Dr. Silvestre Weaver consulted; physical therapy recommending acute rehabilitation. PT/OT/ST therapy consultations ordered. Discharge planning consulted. Heparin 5000 units SC every 8 for DVT prophylaxis. (2) Alcohol dependence Qualifiers: Substance use status: in withdrawal Is this a current diagnosis for this admission?: Yes Plan: Patient acknowledges heavy daily EtOH use. No symptoms of withdrawal today. +scleral icterus and mild jaundice IV Ativan as needed for anxiety, agitation, withdrawal symptoms. Daily thiamine and folate supplementation Fall, seizure, and aspiration precautions. (3) Aphasia Is this a current diagnosis for this admission?: Yes Plan: Secondary to #1, speech therapy ordered. (4) Atrial fibrillation Qualifiers: Atrial fibrillation type: paroxysmal Qualified Code(s): I48.0 - Paroxysmal atrial fibrillation Is this a current diagnosis for this admission?: Yes Plan: Patient's family reports history of paroxysmal AFIB, was making arrangements to obtain event monitor through his charge account authorizer (Dr. Easton) prior to CVA. NSR since arrival to [facility] Atenolol 25 mg daily. Daily aspirin and plavix therapy. Have arranged for SHERRY to determine need for chronic anticoagulation: HAS-BLED score is 4 points; 8.9% yearly major bleeding event risk. [id number] score is 4 points; 4.8% yearly CVA event risk. (5) Tobacco dependence Is this a current diagnosis for this admission?: Yes Plan: Smoking cessation is encouraged, nicotine replacement therapies are provided. - Time Time Spent with patient: 15-24 minutes Medications reviewed and adjusted accordingly: Yes Anticipated discharge: Acute Rehab Within: within 48 hours - Inpatient Certification Based on my medical assessment, after consideration of the patient's comorbidities, presenting symptoms, or acuity I expect that the services needed warrant INPATIENT care.: Yes I certify that my determination is in accordance with my understanding of Medicare's requirements for reasonable and necessary INPATIENT services [42 CFR 412.3e].: Yes Medical Necessity: Risk of Complication if Not Cared For in Hospital
[2018-07-10] MEDS: ATORVASTATIN CALCIUM 80 MG TABLET PO SCH (21:26)
[2018-07-10] MEDS: THIAMINE HCL 100 MG, FOLIC ACID 1 MG in NORMAL SALINE 250 ML IV SCH (21:26)
[2018-07-11] MEDS: HEPARIN SOD (PORCINE) 5,000 UNIT/ML 1 ML SYRINGE SUBCUT SCH ×3 (05:13→21:11)
[2018-07-11] MEDS: IPRATROPIUM/ALBUTEROL 0.5-2.5 MG/3 ML AMPUL NEB SCH ×2 (08:39→21:16)
[2018-07-11] MEDS: SUCRALFATE 1 GM TABLET PO SCH ×4 (10:04→21:11)
[2018-07-11] MEDS: PANTOPRAZOLE SODIUM 40 MG TABLET.DR PO SCH ×2 (10:04→17:49)
[2018-07-11] MEDS: SERTRALINE HCL 50 MG TABLET PO SCH (10:05)
[2018-07-11] MEDS: TAMSULOSIN HCL 0.4 MG CAP.SR.24H PO SCH (10:05)
[2018-07-11] MEDS: NICOTINE 21 MG/24 HR PATCH.TD24 TD SCH (10:05)
[2018-07-11] MEDS: POLYETHYLENE GLYCOL 3350 POWDER 17 GM/1 PACKET PO SCH (10:05)
[2018-07-11] MEDS: GABAPENTIN 100 MG CAPSULE PO SCH ×2 (10:05→21:11)
[2018-07-11] MEDS: CLOPIDOGREL BISULFATE 75 MG TABLET PO SCH (10:05)
[2018-07-11] MEDS: ASPIRIN 81 MG TABLET, CHEWABLE PO SCH (10:05)
[2018-07-11] MEDS: FOLIC ACID 1 MG TABLET PO SCH (10:05)
[2018-07-11] MEDS: ATENOLOL 50 MG TABLET PO SCH (10:06)
--- NOTE | 2018-07-11 12:12 | PDOC PROGRESS REPORT ---
Subjective Progress Note for:: 07/11/18 - Physical Medicine & Rehabilitation Progress Note Subjective:: Chief complaint: "I need to be cleaned up; I just went to the bathroom." Today, the patient was seen and examined in his room. He mentions only that he needs to be cleaned up after having had a bowel movement. Otherwise, he offers no new complaints. He admits to chronic left-sided chest pain, which he has had for a month, as well as some left shoulder pain resulting in weakness. Otherwise, he declines all other review of systems questions. Reason For Visit: CVA AFIB APHASIA Physical Exam Vital Signs: Temp Pulse Resp BP Pulse Ox 98.0 F 78 16 136/71 H 99 07/11/18 07:37 07/11/18 07:37 07/11/18 07:37 07/11/18 07:37 07/11/18 07:37 Intake & Output 07/10/18 07/11/18 07/12/18 06:59 06:59 06:59 Intake Total 940.2 1493.2 Output Total 250 Balance 940.2 1243.2 Weight 62.3 kg 62.7 kg Exam: General: Awake and Alert. No acute distress. Resting comfortably in bed. Head: Normocephalic. Atraumatic. Eyes: Pupils equal, round, and reactive to light. EOMI. Sclera white. Ears: No drainage noted. Nose: Nares normal & without exudate. Oropharynx: Somewhat dry mucous membranes. Neck: Supple movements. Cardiovascular: Regular rate & rhythm. No murmurs, rubs, or gallops appreciated. Pulmonary: Lungs clear to auscultation bilaterally. No increased work of breathing. Gastrointestinal: Abdomen soft, non-tender, non-distended. Normoactive bowel sounds. Skin: Texture and turgor normal. Warm and dry. Psychiatric: Judgment and insight appear to be poor to fair. He is oriented to self and location but not to date. Affect is flat. Extremities: Arthritic changes of the hands and feet are noted. Left shoulder is mildly tender to palpation (patient denies trauma). Neurological: CN III-XII grossly intact. Sensation to light touch is grossly intact. Tone is normal. No Nesbitt's. Speech is fluent at times and at other times incoherent. Muscle Strength: He has at least 4/5 strength of all major muscle groups in the upper and lower extremities, with the only exception of 3/5 strength in Left shoulder abductors secondary to pain. Results Laboratory Results: 07/10/18 06:53 07/09/18 06:34 07/05/18 22:32 Blood Blood Culture - Final NO GROWTH IN 5 DAYS 07/05/18 21:11 Blood Blood Culture - Final NO GROWTH IN 5 DAYS 07/05/18 07/05/18 07/05/18 19:14 23:46 23:46 Creatine Kinase 45 L CK-MB (CK-2) 0.31 Troponin I < 0.012 < 0.012 07/06/18 07/06/18 07/06/18 06:03 06:03 11:53 Creatine Kinase 36 L 36 L CK-MB (CK-2) 0.29 Troponin I < 0.012 07/06/18 11:53 Creatine Kinase CK-MB (CK-2) 0.35 Troponin I < 0.012 Impressions: Chest X-Ray 07/05/18 00:00 IMPRESSION: NO ACUTE RADIOGRAPHIC FINDING IN THE CHEST. Head CT 07/05/18 00:00 IMPRESSION: NORMAL BRAIN CT WITHOUT CONTRAST. EVIDENCE OF ACUTE STROKE: NO. Head MRI 07/05/18 20:24 IMPRESSION: Findings compatible with multifocal acute infarcts throughout the left cerebral hemisphere in an MCA distribution, as above described. No evidence of significant midline shift, mass effect, or intracranial hemorrhage. Hyperintense T1 signal located about the left M2 segment raises the possibility of intraluminal thrombus at this location. copyright 2010 [employer]- All Rights Reserved Carotid Doppler Study 07/06/18 00:00 IMPRESSION: 1. Poor visualization of the left carotid vessels, extensive plaque with diminished waveforms. Suspect high-grade stenosis. If clinically warranted, CTA of the neck vessels may help to better delineate the extent of disease. 2. No hemodynamically significant right internal carotid stenosis. Head CTA 07/06/18 00:00 IMPRESSION: Cross-filling of the left system via patent anterior communicator, as the left carotid is occluded. There is atherosclerotic change of the left middle cerebral vessel with decreased flow on the left compared to the right. Neck CTA 07/06/18 00:00 IMPRESSION: Less than 50% stenosis of the right ICA but extensive plaque at the origin of the ICA. Complete occlusion of the left common carotid artery just distal to the origin. No contrast in the ICA or ECA. Widely patent left vertebral which arises from the aortic arch. Assessment and Plan - Plan Summary Plan Summary: Current Functional Status: Per therapy notes, the patient currently requires standby assistance for bed mobility, contact-guard to minimum assistance for transfers, and contact guard assistance for regulation of 80 feet with a rolling walker. The patient declined to work with occupational therapy due to pain. 72-year-old male with left hemispheric CVA, alcohol dependence, and paroxysmal atrial fibrillation. 1. Gait and ADL Dysfunction secondary to left hemispheric CVA, alcohol dependence, and paroxysmal atrial fibrillation. - Continue PT and OT to maximize mobility, safety, endurance, and self-care. 2. Left hemispheric CVA without hemiparesis - Needs continued PT & OT & MANUFACTURING PLANT TECHNICIAN to maximize functional mobility, safety and self-care as well as communication needs & swallow function. Risk Factor Modification: - Hypertension: Dietary and activity modifications, avoid hypotension and hypertension - Glycemic Control: Consider checking hemoglobin A1c, continue dietary and activity modifications, avoid hyperglycemia and hypoglycemia - Lipids: LDL is 170, continue dietary and activity modifications, continue statin - Smoking: Discussed smoking cessation - Alcohol: Discussed alcohol intake - Antiplatelet: Continue aspirin 81 mg daily and Plavix 75 mg daily. - Cardioembolic Event: The patient has paroxysmal atrial fibrillation. SHERRY is negative for cardioembolic source. There is still a question of whether anticoagulation will be initiated. - Vascular: The patient has complete occlusion of the left carotid system with no hemodynamically significant stenosis on the right. At this point, he is felt not to be a surgical candidate for carotid endarterectomy and recommended continuation of aspirin and Plavix. He may benefit from outpatient follow-up with vascular surgery. Dysphagia: - Bedside swallow evaluation completed. - Continue regular solids with thin liquids diet. - Aspiration precautions, MANUFACTURING PLANT TECHNICIAN following. VTE Prophylaxis: - Continue SQ heparin Risk of Spasticity: - Continue ROM, positioning. - The patient does not have increased tone. Risk of Contractures: - Continue ROM, positioning. Risk of Constipation: - Continue dietary modifications and encourage fluid intake. - Bowel protocol. Risk of Neurogenic Bladder/UTI: - Monitor for retention, incontinence, UTI. - Have patient attempt to void every 3 hours. Encourage patient to be upright to void and to double void. Perform POST VOID residual bladder scan at least once each shift. Record amount voided and post void residual amount. Perform intermittent catheterization if more than 250 ml post void residual urine. Risk of Skin Breakdown: - Frequent turning/position changes. - Optimize nutritional status. 3. Paroxysmal atrial fibrillation - Currently in normal sinus rhythm - SHERRY noted to be negative for cardioembolic source. - The family will decide about moving ahead with anticoagulation - Continue management per hospitalist medicine 4. Alcohol dependence - No signs of acute withdrawal at this time - Continue vitamin supplementation and further management per hospitalist medicine 5. Disposition - Based on the patient's diagnosis, medical co-morbidities, and current fu nctional status, he is not a candidate for Acute Inpatient Rehabilitation as he would be unable to tolerate 3 hours/day of intensive therapies in at least 2 disciplines. The patient would benefit from a prolonged, less intensive rehabilitation course that can be provided at the subacute level. This case was discussed with the patient's acute care therapists and maintenance planner. Thank you for allowing us to participate in the care of this patient. Please call with any questions. A total of 20 minutes was spent on [id number] communication with the patient and coordination of care.
--- NOTE | 2018-07-11 20:31 | PDOC PROGRESS REPORT ---
Subjective Progress Note for:: 07/11/18 Subjective:: HOLLI PANDEY is a 72 year old male with a past medical history of atrial fibrillation without anticoagulation, dyslipidemia, hypertension, zoster, chronic bronchitis, pancreatitis and alcohol dependence who was admitted 07/05/2018 for acute ischemic multifocal vascular territory stroke. The patient was seen on rounds, he is resting in bed on room air. Patient is oriented to self and place. He is not able to tell me the year. The patient is able to follow all commands but when left alone acts impulsively. Nursing staff reports the patient defecated and urinated on the hospital room floor overnight. (+) R pronator drift. Very mild RLE weakness. 2 person assist for ambulation. Patient seen by Dr. Weaver who believes the patient is not a candidate for acute rehab, but would be better suited for SNF/rehab. Discharge planning aware, family made aware. Discharge planning is assisting with placement. Reason For Visit: CVA AFIB APHASIA Physical Exam Vital Signs: Temp Pulse Resp BP Pulse Ox 98.2 F 70 18 133/62 H 96 07/11/18 19:19 07/11/18 19:19 07/11/18 19:19 07/11/18 19:19 07/11/18 19:19 Intake & Output 07/10/18 07/11/18 07/12/18 06:59 06:59 06:59 Intake Total 940.2 1493.2 400 Output Total 250 Balance 940.2 1243.2 400 Weight 62.3 kg 62.7 kg General appearance: PRESENT: well-developed, well-nourished Eye exam: PRESENT: PERRLA, scleral icterus Mouth exam: PRESENT: moist, tongue midline Neck exam: PRESENT: full ROM Respiratory exam: PRESENT: clear to auscultation my, symmetrical, unlabored Cardiovascular exam: PRESENT: RRR - NSR Pulses: PRESENT: normal radial pulses, normal dorsalis pedis pul Vascular exam: PRESENT: normal capillary refill GI/Abdominal exam: PRESENT: distended, soft, other Rectal exam: PRESENT: deferred Extremities exam: ABSENT: full ROM - R pronator drift Musculoskeletal exam: ABSENT: ambulatory - 2 person assist, full ROM - r pronator drift Neurological exam: PRESENT: alert, awake, oriented to person, oriented to place. ABSENT: oriented to time, oriented to situation Skin exam: PRESENT: dry, intact, jaundice Results Laboratory Results: 07/10/18 06:53 07/09/18 06:34 07/05/18 22:32 Blood Blood Culture - Final NO GROWTH IN 5 DAYS 07/05/18 21:11 Blood Blood Culture - Final NO GROWTH IN 5 DAYS 07/05/18 07/05/18 07/05/18 19:14 23:46 23:46 Creatine Kinase 45 L CK-MB (CK-2) 0.31 Troponin I < 0.012 < 0.012 07/06/18 07/06/18 07/06/18 06:03 06:03 11:53 Creatine Kinase 36 L 36 L CK-MB (CK-2) 0.29 Troponin I < 0.012 07/06/18 11:53 Creatine Kinase CK-MB (CK-2) 0.35 Troponin I < 0.012 Impressions: Chest X-Ray 07/05/18 00:00 IMPRESSION: NO ACUTE RADIOGRAPHIC FINDING IN THE CHEST. Head CT 07/05/18 00:00 IMPRESSION: NORMAL BRAIN CT WITHOUT CONTRAST. EVIDENCE OF ACUTE STROKE: NO. Head MRI 07/05/18 20:24 IMPRESSION: Findings compatible with multifocal acute infarcts throughout the left cerebral hemisphere in an MCA distribution, as above described. No evidence of significant midline shift, mass effect, or intracranial hemorrhage. Hyperintense T1 signal located about the left M2 segment raises the possibility of intraluminal thrombus at this location. copyright 2010 [employer]- All Rights Reserved Carotid Doppler Study 07/06/18 00:00 IMPRESSION: 1. Poor visualization of the left carotid vessels, extensive plaque with diminished waveforms. Suspect high-grade stenosis. If clinically warranted, CTA of the neck vessels may help to better delineate the extent of disease. 2. No hemodynamically significant right internal carotid stenosis. Head CTA 07/06/18 00:00 IMPRESSION: Cross-filling of the left system via patent anterior communicator, as the left carotid is occluded. There is atherosclerotic change of the left middle cerebral vessel with decreased flow on the left compared to the right. Neck CTA 07/06/18 00:00 IMPRESSION: Less than 50% stenosis of the right ICA but extensive plaque at the origin of the ICA. Complete occlusion of the left common carotid artery just distal to the origin. No contrast in the ICA or ECA. Widely patent left vertebral which arises from the aortic arch. Status: Imported from PACS Assessment and Plan - Diagnosis (1) Acute ischemic multifocal multiple vascular territories stroke Is this a current diagnosis for this admission?: Yes Plan: Patient presented with report of 3 days of expressive aphasia and odd behaviors. Head CT demonstrated Mild periventricular and patchy subcortical white matter low attenuation. Follow-up MRI showed findings compatible with multifocal acute infarcts throughout the L circumflex hemisphere in an MCA distribution. Hyperintense T1 signal located about the left M2 segment concerning for intraluminal thrombus. Carotid Doppler showed poor visualization of the left carotid vessel but with extensive plaque and diminished waveforms suspicious for high-grade stenosis. No hemodynamically significant stenosis on the right. Echocardiogram revealed LVEF 50-60%; No clear intra-cardiac source of thrombus. Head and neck CTA demonstrated <50% occlusion of the right ICA, 100% occlusion of the left ICA with cross-filling of the left system via patent anterior communicator. Troponins are negative x3, no longer trending Per family, patient had recently been diagnosed with paroxysmal AFIB. He was scheduled to have a follow-up appointment for event monitor sometime this month. Had not yet started chronic anticoagulation therapy. HAS-BLED score is 4 points; 8.9% yearly major bleeding event risk. [id number] score is 4 points; 4.8 yearly CVA event. Relative stroke and bleeding risks were reviewed with family members. Do not recommend anticoagulation due to patient's heavy ETOH use and his propensity for falling Dr. Boubacar Jon consulted regarding the neck CTA results. Dr. Jon advises that the patient would not be a candidate for carotid endarterectomy at this time; recommends neurology consultation. Previous provider called [facility] and spoke with Dr. Cornelius (neurology). She confirms that there is a 6-hour window for thrombectomy in a patient presenting with his similar findings. As the patient presented after approximately 3 days of symptoms, he was outside the window upon arrival to the emergency department. She recommends dual antiplatelet therapy with aspirin 81 mg and Plavix 75 mg daily. Patient is admitted to [facility] on continuous cardiac telemetry. Continue aspirin, Plavix, and statin therapy. Dr. Silvestre Weaver consulted; recommends SNF rehab. PT/OT/ST therapy consultations ordered. Discharge planning consulted. Heparin 5000 units SC every 8 for DVT prophylaxis. (2) Alcohol dependence Qualifiers: Substance use status: in withdrawal Is this a current diagnosis for this admission?: Yes Plan: Patient acknowledges heavy daily EtOH use. No symptoms of withdrawal today. +scleral icterus and mild jaundice IV Ativan as needed for anxiety, agitation, withdrawal symptoms. Daily thiamine and folate supplementation Fall, seizure, and aspiration precautions. (3) Aphasia Is this a current diagnosis for this admission?: Yes Plan: Secondary to #1, speech therapy ordered. Expressive aphasia (4) Atrial fibrillation Qualifiers: Atrial fibrillation type: paroxysmal Qualified Code(s): I48.0 - Paroxysmal atrial fibrillation Is this a current diagnosis for this admission?: Yes Plan: Patient's family reports history of paroxysmal AFIB, was making arrangements to obtain event monitor through his shovel operator (Dr. Easton) prior to CVA. NSR since arrival to [facility] Atenolol 25 mg daily. Daily aspirin and plavix therapy. [facility] negative HAS-BLED score is 4 points; 8.9% yearly major bleeding event risk. [id number] score is 4 points; 4.8% yearly CVA event risk. Patient is not a candicate for anticoagulation due to ETOH history and risk for falls (5) Tobacco dependence Is this a current diagnosis for this admission?: Yes Plan: Smoking cessation is encouraged, nicotine replacement therapies are provided. - Time Time Spent with patient: 15-24 minutes Medications reviewed and adjusted accordingly: Yes Anticipated discharge: SNF - Inpatient Certification Based on my medical assessment, after consideration of the patient's comorbidities, presenting symptoms, or acuity I expect that the services needed warrant INPATIENT care.: Yes I certify that my determination is in accordance with my understanding of Medicare's requirements for reasonable and necessary INPATIENT services [42 CFR 412.3e].: Yes Medical Necessity: Need Close Monitoring Due to Risk of Patient Decompensation, Need For Continuous Telemetry Monitoring - Plan Summary Plan Summary: DISCHARGE TO SNF REHAB TOMORROW
[2018-07-11] MEDS: ATORVASTATIN CALCIUM 80 MG TABLET PO SCH (21:11)
[2018-07-11] MEDS: THIAMINE HCL 100 MG, FOLIC ACID 1 MG in NORMAL SALINE 250 ML IV SCH (21:11)
[2018-07-12] MEDS: HEPARIN SOD (PORCINE) 5,000 UNIT/ML 1 ML SYRINGE SUBCUT SCH ×3 (05:20→21:19)
[2018-07-12 06:14] LABS: APPEARANCE,URINE CLEAR; BILIRUBIN,URINE NEGATIVE (NEGATIVE); COLOR,URINE YELLOW; GLUCOSE, URINE NEGATIVE (NEGATIVE); KETONES,URINE NEGATIVE (NEGATIVE); LEUKOCYTE ESTERASE,URINE NEGATIVE (NEGATIVE); NITRITE,URINE NEGATIVE (NEGATIVE); PROTEIN,URINE NEGATIVE (NEGATIVE); URINE SPECIFIC GRAVITY 1.016; UROBILINOGEN,URINE NEGATIVE mg/dL (<2.0)
[2018-07-12 06:39] LABS: HEMOGLOBIN 12.2 g/dL (13.5-17.0); MEAN CORPUSCULAR VOLUME 88 fl (80-97); PLATELET COUNT 174 10^3/uL (150-450); RED BLOOD COUNT 4.08 10^6/uL (4.35-5.55); RED CELL DISTRIBUTION WIDTH 15.6 % (11.5-14.0); WHITE BLOOD COUNT 5.9 10^3/uL (4.0-10.5)
[2018-07-12] MEDS: IPRATROPIUM/ALBUTEROL 0.5-2.5 MG/3 ML AMPUL NEB SCH ×2 (09:11→20:08)
[2018-07-12] MEDS: TAMSULOSIN HCL 0.4 MG CAP.SR.24H PO SCH (09:49)
[2018-07-12] MEDS: GABAPENTIN 100 MG CAPSULE PO SCH ×2 (09:49→21:18)
[2018-07-12] MEDS: FOLIC ACID 1 MG TABLET PO SCH (09:49)
[2018-07-12] MEDS: SERTRALINE HCL 50 MG TABLET PO SCH (09:49)
[2018-07-12] MEDS: ASPIRIN 81 MG TABLET, CHEWABLE PO SCH (09:49)
[2018-07-12] MEDS: CLOPIDOGREL BISULFATE 75 MG TABLET PO SCH (09:49)
[2018-07-12] MEDS: NICOTINE 21 MG/24 HR PATCH.TD24 TD SCH (09:49)
[2018-07-12] MEDS: SUCRALFATE 1 GM TABLET PO SCH ×4 (09:49→21:18)
[2018-07-12] MEDS: POLYETHYLENE GLYCOL 3350 POWDER 17 GM/1 PACKET PO SCH (09:49)
[2018-07-12] MEDS: PANTOPRAZOLE SODIUM 40 MG TABLET.DR PO SCH ×2 (09:49→17:22)
[2018-07-12] MEDS: ATENOLOL 50 MG TABLET PO SCH (09:50)
[2018-07-12] MEDS: ATORVASTATIN CALCIUM 80 MG TABLET PO SCH (21:18)
[2018-07-12] MEDS: THIAMINE HCL 100 MG, FOLIC ACID 1 MG in NORMAL SALINE 250 ML IV SCH (21:19)
[2018-07-13] MEDS: HEPARIN SOD (PORCINE) 5,000 UNIT/ML 1 ML SYRINGE SUBCUT SCH ×3 (05:07→21:21)
--- NOTE | 2018-07-13 05:40 | PDOC PROGRESS REPORT ---
Subjective Progress Note for:: 07/12/18 Subjective:: HOLLI PANDEY is a 72 year old male with a past medical history of atrial fibrillation without anticoagulation, dyslipidemia, hypertension, zoster, chronic bronchitis, pancreatitis and alcohol dependence who was admitted 07/05/2018 for acute ischemic multifocal vascular territory stroke. NO CHANGE TO PHYSICAL EXAM OR TREATMENT PLAN. Patient is waiting to go to [place]. Needs to be assessed by parts sales representative of that facility. Reason For Visit: CVA AFIB APHASIA Physical Exam Vital Signs: Temp Pulse Resp BP Pulse Ox 97.9 F 70 18 154/67 H 100 07/13/18 03:16 07/13/18 03:16 07/13/18 03:16 07/13/18 03:16 07/13/18 03:16 Intake & Output 07/11/18 07/12/18 07/13/18 06:59 06:59 06:59 Intake Total 1493.2 1251.2 1181.2 Output Total 250 250 150 Balance 1243.2 1001.2 1031.2 Weight 62.7 kg 63.2 kg General appearance: PRESENT: well-developed, well-nourished Head exam: PRESENT: atraumatic Eye exam: PRESENT: PERRLA, scleral icterus Mouth exam: PRESENT: moist, tongue midline Neck exam: PRESENT: full ROM Respiratory exam: PRESENT: clear to auscultation my, symmetrical, unlabored Cardiovascular exam: PRESENT: RRR - nsr Pulses: PRESENT: normal radial pulses, normal dorsalis pedis pul Vascular exam: PRESENT: normal capillary refill Rectal exam: PRESENT: deferred Extremities exam: PRESENT: full ROM, other - R PRONATOR DRIFT. ABSENT: pedal edema Musculoskeletal exam: PRESENT: ambulatory - with assistance, normal inspection Neurological exam: PRESENT: alert, awake, oriented to person, oriented to place. ABSENT: oriented to time, oriented to situation Psychiatric exam: PRESENT: appropriate affect Skin exam: PRESENT: dry, intact, jaundice Results Laboratory Results: 07/12/18 05:13 07/09/18 06:34 07/12/18 07/12/18 05:13 05:29 WBC 5.9 RBC 4.08 L Hgb 12.2 L Hct 36.0 L MCV 88 MCH 30.0 MCHC 34.0 RDW 15.6 H Plt Count 174 Urine Color YELLOW Urine Appearance CLEAR Urine pH 6.0 Ur Specific [place] 1.016 Urine Protein NEGATIVE Urine Glucose (UA) NEGATIVE Urine Ketones NEGATIVE Urine Blood NEGATIVE Urine Nitrite NEGATIVE Ur Leukocyte Esterase NEGATIVE Urine WBC (Auto) 2 Urine RBC (Auto) 1 07/05/18 07/05/18 07/05/18 19:14 23:46 23:46 Creatine Kinase 45 L CK-MB (CK-2) 0.31 Troponin I < 0.012 < 0.012 07/06/18 07/06/18 07/06/18 06:03 06:03 11:53 Creatine Kinase 36 L 36 L CK-MB (CK-2) 0.29 Troponin I < 0.012 07/06/18 11:53 Creatine Kinase CK-MB (CK-2) 0.35 Troponin I < 0.012 Impressions: Chest X-Ray 07/05/18 00:00 IMPRESSION: NO ACUTE RADIOGRAPHIC FINDING IN THE CHEST. Head CT 07/05/18 00:00 IMPRESSION: NORMAL BRAIN CT WITHOUT CONTRAST. EVIDENCE OF ACUTE STROKE: NO. Head MRI 07/05/18 20:24 IMPRESSION: Findings compatible with multifocal acute infarcts throughout the left cerebral hemisphere in an MCA distribution, as above described. No evidence of significant midline shift, mass effect, or intracranial hemorrhage. Hyperintense T1 signal located about the left M2 segment raises the possibility of intraluminal thrombus at this location. copyright 2010 [employer]- All Rights Reserved Carotid Doppler Study 07/06/18 00:00 IMPRESSION: 1. Poor visualization of the left carotid vessels, extensive plaque with diminished waveforms. Suspect high-grade stenosis. If clinically warranted, CTA of the neck vessels may help to better delineate the extent of disease. 2. No hemodynamically significant right internal carotid stenosis. Head CTA 07/06/18 00:00 IMPRESSION: Cross-filling of the left system via patent anterior communicator, as the left carotid is occluded. There is atherosclerotic change of the left middle cerebral vessel with decreased flow on the left compared to the right. Neck CTA 07/06/18 00:00 IMPRESSION: Less than 50% stenosis of the right ICA but extensive plaque at the origin of the ICA. Complete occlusion of the left common carotid artery just distal to the origin. No contrast in the ICA or ECA. Widely patent left vertebral which arises from the aortic arch. Status: Imported from PACS Assessment and Plan - Diagnosis (1) Acute ischemic multifocal multiple vascular territories stroke Is this a current diagnosis for this admission?: Yes Plan: Patient presented with report of 3 days of expressive aphasia and odd behaviors. Head CT demonstrated Mild periventricular and patchy subcortical white matter low attenuation. Follow-up MRI showed findings compatible with multifocal acute infarcts throughout the L circumflex hemisphere in an MCA distribution. Hyperintense T1 signal located about the left M2 segment concerning for intraluminal thrombus. Carotid Doppler showed poor visualization of the left carotid vessel but with extensive plaque and diminished waveforms suspicious for high-grade stenosis. No hemodynamically significant stenosis on the right. Echocardiogram revealed LVEF 50-60%; No clear intra-cardiac source of thrombus. Head and neck CTA demonstrated <50% occlusion of the right ICA, 100% occlusion of the left ICA with cross-filling of the left system via patent anterior communicator. Troponins are negative x3, no longer trending Per family, patient had recently been diagnosed with paroxysmal AFIB. He was scheduled to have a follow-up appointment for event monitor sometime this month. Had not yet started chronic anticoagulation therapy. HAS-BLED score is 4 points; 8.9% yearly major bleeding event risk. [id number] score is 4 points; 4.8 yearly CVA event. Relative stroke and bleeding risks were reviewed with family members. Do not recommend anticoagulation due to patient's heavy ETOH use and his propensity for falling Dr. Boubacar Jon consulted regarding the neck CTA results. Dr. Jon advises that the patient would not be a candidate for carotid endarterectomy at this time; recommends neurology consultation. Previous provider called [facility] and spoke with Dr. Cornelius (neurology). She confirms that there is a 6-hour window for thrombectomy in a patient presenting with his similar findings. As the patient presented after approximately 3 days of symptoms, he was outside the window upon arrival to the emergency department. She recommends dual antiplatelet therapy with aspirin 81 mg and Plavix 75 mg daily. Patient is admitted to [facility] on continuous cardiac telemetry. Continue aspirin, Plavix, and statin therapy. Dr. Silvestre Weaver consulted; recommends SNF rehab. Awaiting placement at [place] PT/OT/ST therapy consultations ordered. Discharge planning consulted. Heparin 5000 units SC every 8 for DVT prophylaxis. (2) Alcohol dependence Qualifiers: Substance use status: in withdrawal Is this a current diagnosis for this admission?: Yes Plan: Patient acknowledges heavy daily EtOH use. No symptoms of withdrawal today. +scleral icterus and mild jaundice IV Ativan as needed for anxiety, agitation, withdrawal symptoms. Daily thiamine and folate supplementation Fall, seizure, and aspiration precautions. (3) Aphasia Is this a current diagnosis for this admission?: Yes Plan: Secondary to #1, speech therapy ordered. 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 NSR since arrival to [facility] Atenolol 25 mg daily. Daily aspirin and plavix therapy. [facility] negative HAS-BLED score is 4 points; 8.9% yearly major bleeding event risk. [id number] score is 4 points; 4.8% yearly CVA event risk. Patient is not a candicate for anticoagulation due to ETOH history and risk for falls (5) Tobacco dependence Is this a current diagnosis for this admission?: Yes Plan: Smoking cessation is encouraged, nicotine replacement therapies are provided. - Time Time Spent with patient: 15-24 minutes Medications reviewed and adjusted accordingly: Yes Anticipated discharge: SNF Within: within 48 hours - Inpatient Certification Based on my medical assessment, after consideration of the patient's comorbidities, presenting symptoms, or acuity I expect that the services needed warrant INPATIENT care.: Yes I certify that my determination is in accordance with my understanding of Medicare's requirements for reasonable and necessary INPATIENT services [42 CFR 412.3e].: Yes Medical Necessity: Risk of Complication if Not Cared For in Hospital
[2018-07-13 06:40] LABS: APPEARANCE,URINE CLEAR; BILIRUBIN,URINE NEGATIVE (NEGATIVE); COLOR,URINE YELLOW; GLUCOSE, URINE NEGATIVE (NEGATIVE); KETONES,URINE NEGATIVE (NEGATIVE); LEUKOCYTE ESTERASE,URINE NEGATIVE (NEGATIVE); NITRITE,URINE NEGATIVE (NEGATIVE); PROTEIN,URINE NEGATIVE (NEGATIVE); URINE SPECIFIC GRAVITY 1.014; UROBILINOGEN,URINE NEGATIVE mg/dL (<2.0)
[2018-07-13] MEDS: POLYETHYLENE GLYCOL 3350 POWDER 17 GM/1 PACKET PO SCH (10:15)
[2018-07-13] MEDS: NICOTINE 21 MG/24 HR PATCH.TD24 TD SCH (10:15)
[2018-07-13] MEDS: ASPIRIN 81 MG TABLET, CHEWABLE PO SCH (10:18)
[2018-07-13] MEDS: FOLIC ACID 1 MG TABLET PO SCH (10:18)
[2018-07-13] MEDS: GABAPENTIN 100 MG CAPSULE PO SCH ×2 (10:18→21:21)
[2018-07-13] MEDS: PANTOPRAZOLE SODIUM 40 MG TABLET.DR PO SCH ×2 (10:18→17:03)
[2018-07-13] MEDS: TAMSULOSIN HCL 0.4 MG CAP.SR.24H PO SCH (10:19)
[2018-07-13] MEDS: SERTRALINE HCL 50 MG TABLET PO SCH (10:19)
[2018-07-13] MEDS: ATENOLOL 50 MG TABLET PO SCH (10:19)
[2018-07-13] MEDS: SUCRALFATE 1 GM TABLET PO SCH ×4 (10:19→21:21)
[2018-07-13] MEDS: CLOPIDOGREL BISULFATE 75 MG TABLET PO SCH (10:19)
[2018-07-13] MEDS: ACETAMINOPHEN 325 MG TABLET PO PRN (10:21)
[2018-07-13] MEDS: IPRATROPIUM/ALBUTEROL 0.5-2.5 MG/3 ML AMPUL NEB SCH ×2 (10:35→20:09)
[2018-07-13] MEDS: ATORVASTATIN CALCIUM 80 MG TABLET PO SCH (21:21)
[2018-07-13] MEDS: THIAMINE HCL 100 MG, FOLIC ACID 1 MG in NORMAL SALINE 250 ML IV SCH (21:26)
--- NOTE | 2018-07-13 22:27 | PDOC PROGRESS REPORT ---
Subjective Progress Note for:: 07/13/18 Subjective:: HOLLI PANDEY is a 72 year old male with a past medical history of atrial fibrillation without anticoagulation, dyslipidemia, hypertension, zoster, chronic bronchitis, pancreatitis and alcohol dependence who was admitted 07/05/2018 for acute ischemic multifocal vascular territory stroke. NO CHANGE TO PHYSICAL EXAM OR TREATMENT PLAN. Patient is waiting to go to [facility]. Needs to be assessed by sales representative raw fibers of that facility. Reason For Visit: CVA AFIB APHASIA Physical Exam Vital Signs: Temp Pulse Resp BP Pulse Ox 98.0 F 71 16 130/74 H 96 07/13/18 20:22 07/13/18 20:22 07/13/18 20:22 07/13/18 20:22 07/13/18 20:22 Intake & Output 07/12/18 07/13/18 07/14/18 06:59 06:59 06:59 Intake Total 1251.2 1181.2 400 Output Total 250 150 250 Balance 1001.2 1031.2 150 Weight 63.2 kg 62.3 kg General appearance: PRESENT: well-developed, well-nourished Head exam: PRESENT: atraumatic Eye exam: PRESENT: scleral icterus Mouth exam: PRESENT: moist, neck supple Neck exam: PRESENT: full ROM Respiratory exam: PRESENT: clear to auscultation my, symmetrical, unlabored Cardiovascular exam: PRESENT: RRR - nsr Pulses: PRESENT: normal radial pulses, normal dorsalis pedis pul Vascular exam: PRESENT: normal capillary refill GI/Abdominal exam: PRESENT: soft. ABSENT: distended, tenderness Rectal exam: PRESENT: deferred Extremities exam: PRESENT: full ROM Musculoskeletal exam: PRESENT: ambulatory, full ROM Neurological exam: PRESENT: alert, awake, oriented to person, oriented to place. ABSENT: oriented to time, oriented to situation Psychiatric exam: PRESENT: appropriate affect Skin exam: PRESENT: dry, intact, jaundice Results Laboratory Results: 07/12/18 05:13 07/09/18 06:34 07/13/18 06:05 Urine Color YELLOW Urine Appearance CLEAR Urine pH 6.0 Ur Specific [place] 1.014 Urine Protein NEGATIVE Urine Glucose (UA) NEGATIVE Urine Ketones NEGATIVE Urine Blood NEGATIVE Urine Nitrite NEGATIVE Ur Leukocyte Esterase NEGATIVE Urine WBC (Auto) 3 Urine RBC (Auto) 1 07/05/18 07/05/18 07/05/18 19:14 23:46 23:46 Creatine Kinase 45 L CK-MB (CK-2) 0.31 Troponin I < 0.012 < 0.012 07/06/18 07/06/18 07/06/18 06:03 06:03 11:53 Creatine Kinase 36 L 36 L CK-MB (CK-2) 0.29 Troponin I < 0.012 07/06/18 11:53 Creatine Kinase CK-MB (CK-2) 0.35 Troponin I < 0.012 Impressions: Chest X-Ray 07/05/18 00:00 IMPRESSION: NO ACUTE RADIOGRAPHIC FINDING IN THE CHEST. Head CT 07/05/18 00:00 IMPRESSION: NORMAL BRAIN CT WITHOUT CONTRAST. EVIDENCE OF ACUTE STROKE: NO. Head MRI 07/05/18 20:24 IMPRESSION: Findings compatible with multifocal acute infarcts throughout the left cerebral hemisphere in an MCA distribution, as above described. No evidence of significant midline shift, mass effect, or intracranial hemorrhage. Hyperintense T1 signal located about the left M2 segment raises the possibility of intraluminal thrombus at this location. copyright 2011 [employer]- All Rights Reserved Carotid Doppler Study 07/06/18 00:00 IMPRESSION: 1. Poor visualization of the left carotid vessels, extensive plaque with diminished waveforms. Suspect high-grade stenosis. If clinically warranted, CTA of the neck vessels may help to better delineate the extent of disease. 2. No hemodynamically significant right internal carotid stenosis. Head CTA 07/06/18 00:00 IMPRESSION: Cross-filling of the left system via patent anterior communicator, as the left carotid is occluded. There is atherosclerotic change of the left middle cerebral vessel with decreased flow on the left compared to the right. Neck CTA 07/06/18 00:00 IMPRESSION: Less than 50% stenosis of the right ICA but extensive plaque at the origin of the ICA. Complete occlusion of the left common carotid artery just distal to the origin. No contrast in the ICA or ECA. Widely patent left vertebral which arises from the aortic arch. Status: Imported from PACS Assessment and Plan - Diagnosis (1) Acute ischemic multifocal multiple vascular territories stroke Is this a current diagnosis for this admission?: Yes Plan: Patient presented with report of 3 days of expressive aphasia and odd behaviors. Head CT demonstrated Mild periventricular and patchy subcortical white matter low attenuation. Follow-up MRI showed findings compatible with multifocal acute infarcts throughout the L circumflex hemisphere in an MCA distribution. Hyperintense T1 signal located about the left M2 segment concerning for intraluminal thrombus. Carotid Doppler showed poor visualization of the left carotid vessel but with extensive plaque and diminished waveforms suspicious for high-grade stenosis. No hemodynamically significant stenosis on the right. Echocardiogram revealed LVEF 50-60%; No clear intra-cardiac source of thrombus. Head and neck CTA demonstrated <50% occlusion of the right ICA, 100% occlusion of the left ICA with cross-filling of the left system via patent anterior communicator. Troponins are negative x3, no longer trending Per family, patient had recently been diagnosed with paroxysmal AFIB. He was scheduled to have a follow-up appointment for event monitor sometime this month. Had not yet started chronic anticoagulation therapy. HAS-BLED score is 4 points; 8.9% yearly major bleeding event risk. [id number] score is 4 points; 4.8 yearly CVA event. Relative stroke and bleeding risks were reviewed with family members. Do not recommend anticoagulation due to patient's heavy ETOH use and his propensity for falling Dr. Boubacar Jon consulted regarding the neck CTA results. Dr. Jon advises that the patient would not be a candidate for carotid endarterectomy at this time; recommends neurology consultation. Previous provider called [facility] and spoke with Dr. Cornelius (neurology). She confirms that there is a 6-hour window for thrombectomy in a patient presenting with his similar findings. As the patient presented after approximately 3 days of symptoms, he was outside the window upon arrival to the emergency department. She recommends dual antiplatelet therapy with aspirin 81 mg and Plavix 75 mg daily. Patient is admitted to [facility] on continuous cardiac telemetry. Continue aspirin, Plavix, and statin therapy. Dr. Silvestre Weaver consulted; recommends SNF rehab. Awaiting placement at [facility] PT/OT/ST therapy consultations ordered. Discharge planning consulted. Heparin 5000 units SC every 8 for DVT prophylaxis. (2) Alcohol dependence Qualifiers: Substance use status: in withdrawal Is this a current diagnosis for this admission?: Yes Plan: Patient acknowledges heavy daily EtOH use. No symptoms of withdrawal today. +scleral icterus and mild jaundice IV Ativan as needed for anxiety, agitation, withdrawal symptoms. Daily thiamine and folate supplementation Fall, seizure, and aspiration precautions. (3) Aphasia Is this a current diagnosis for this admission?: Yes Plan: Secondary to #1, speech therapy ordered. Expressive aphasia (4) Atrial fibrillation Qualifiers: Atrial fibrillation type: paroxysmal Qualified Code(s): I48.0 - Paroxysmal atrial fibrillation Is this a current diagnosis for this admission?: Yes Plan: Patient's family reports history of paroxysmal AFIB, was making arrangements to obtain event monitor through his boiler blower (Dr. Easton) prior to CVA. NSR since arrival to [facility] Atenolol 25 mg daily. Daily aspirin and plavix therapy. [facility] negative HAS-BLED score is 4 points; 8.9% yearly major bleeding event risk. [id number] score is 4 points; 4.8% yearly CVA event risk. Patient is not a candicate for anticoagulation due to ETOH history and risk for falls (5) Tobacco dependence Is this a current diagnosis for this admission?: Yes Plan: Smoking cessation is encouraged, nicotine replacement therapies are provided. - Time Time Spent with patient: 15-24 minutes Medications reviewed and adjusted accordingly: Yes Anticipated discharge: Home - Inpatient Certification Based on my medical assessment, after consideration of the patient's comorbidities, presenting symptoms, or acuity I expect that the services needed warrant INPATIENT care.: Yes I certify that my determination is in accordance with my understanding of Medicare's requirements for reasonable and necessary INPATIENT services [42 CFR 412.3e].: Yes Medical Necessity: Significant Comorbidiites Make Outpatient Treatment Too Risky, Risk of Complication if Not Cared For in Hospital
[2018-07-14] MEDS: HEPARIN SOD (PORCINE) 5,000 UNIT/ML 1 ML SYRINGE SUBCUT SCH ×3 (05:52→21:15)
[2018-07-14] MEDS: NICOTINE 21 MG/24 HR PATCH.TD24 TD SCH ×2 (09:41→09:56)
[2018-07-14] MEDS: ACETAMINOPHEN 325 MG TABLET PO PRN ×2 (09:42→19:38)
[2018-07-14] MEDS: GABAPENTIN 100 MG CAPSULE PO SCH ×2 (09:43→21:15)
[2018-07-14] MEDS: SUCRALFATE 1 GM TABLET PO SCH ×4 (09:43→21:15)
[2018-07-14] MEDS: ASPIRIN 81 MG TABLET, CHEWABLE PO SCH (09:43)
[2018-07-14] MEDS: TAMSULOSIN HCL 0.4 MG CAP.SR.24H PO SCH (09:44)
[2018-07-14] MEDS: FOLIC ACID 1 MG TABLET PO SCH (09:44)
[2018-07-14] MEDS: CLOPIDOGREL BISULFATE 75 MG TABLET PO SCH (09:44)
[2018-07-14] MEDS: SERTRALINE HCL 50 MG TABLET PO SCH (09:44)
[2018-07-14] MEDS: PANTOPRAZOLE SODIUM 40 MG TABLET.DR PO SCH ×2 (09:45→17:16)
[2018-07-14] MEDS: ATENOLOL 50 MG TABLET PO SCH (09:45)
[2018-07-14] MEDS: POLYETHYLENE GLYCOL 3350 POWDER 17 GM/1 PACKET PO SCH (09:46)
[2018-07-14] MEDS: IPRATROPIUM/ALBUTEROL 0.5-2.5 MG/3 ML AMPUL NEB SCH ×2 (10:02→20:43)
[2018-07-14] MEDS ORDERED: NICOTINE 21 MG/24 HR PATCH.TD24 TD SCH (18:00)
[2018-07-14] MEDS: ATORVASTATIN CALCIUM 80 MG TABLET PO SCH (21:15)
[2018-07-14] MEDS: THIAMINE HCL 100 MG, FOLIC ACID 1 MG in NORMAL SALINE 250 ML IV SCH (21:16)
[2018-07-15] MEDS: HEPARIN SOD (PORCINE) 5,000 UNIT/ML 1 ML SYRINGE SUBCUT SCH ×2 (05:27→13:51)
[2018-07-15 07:15] LABS: ABSOLUTE EOSINOPHILS # (AUTO) 0.1 10^3/uL (0.0-0.6); ABSOLUTE LYMPHOCYTES (AUTO) 1.7 10^3/uL (0.5-4.7); ABSOLUTE MONOCYTES (AUTO) 0.6 10^3/uL (0.1-1.4); ABSOLUTE NEUT (AUTO) 4.1 10^3/uL (1.7-8.2); BASOPHILS % (AUTO) 0.4 % (0-2); EOSINOPHILS % (AUTO) 1.8 % (0-6); HEMATOCRIT 38.8 % (37.9-51.0); HEMOGLOBIN 13.3 g/dL (13.5-17.0); LYMPHOCYTES % (AUTO) 26.2 % (13-45); MEAN CORPUSCULAR HGB CONC 34.3 g/dL (32.0-36.0); MEAN CORPUSCULAR VOLUME 88 fl (80-97); MONOCYTES % (AUTO) 9.8 % (3-13); PLATELET COUNT 299 10^3/uL (150-450); RED BLOOD COUNT 4.44 10^6/uL (4.35-5.55); RED CELL DISTRIBUTION WIDTH 15.8 % (11.5-14.0); SEGMENTED NEUTROPHILS % (AUTO) 61.8 % (42-78); TOTAL CELLS COUNTED % (AUTO) 100 %; WHITE BLOOD COUNT 6.6 10^3/uL (4.0-10.5)
--- NOTE | 2018-07-15 07:25 | EKG REPORT ---
SEVERITY:- ABNORMAL ECG - ATRIAL FIBRILLATION BORDERLINE LEFT AXIS DEVIATION LOW VOLTAGE IN FRONTAL LEADS BORDERLINE R WAVE PROGRESSION, ANTERIOR LEADS : Confirmed by: Sunday Easton MD 15-Jul-2018 07:24:31
[2018-07-15 07:35] LABS: ALANINE AMINOTRANSFERASE 48 U/L (21-72); ALBUMIN 3.6 g/dL (3.5-5.0); ALKALINE PHOSPHATASE 156 U/L (38-126); ANION GAP 9 (5-19); ASPARTATE AMINO TRANSFERASE 35 U/L (17-59); BILIRUBIN,DIRECT 0.4 mg/dL (0.0-0.4); BILIRUBIN,TOTAL 0.8 mg/dL (0.2-1.3); BLOOD UREA NITROGEN 14 mg/dL (7-20); CARBON DIOXIDE 23 mmol/L (22-30); CHLORIDE 109 mmol/L (98-107); GLUCOSE 94 mg/dL (75-110); POTASSIUM 3.6 mmol/L (3.6-5.0); TOTAL PROTEIN 6.8 g/dL (6.3-8.2)
[2018-07-15 07:38] LABS: CREATINE KINASE < 20 U/L (55-170)
[2018-07-15 07:46] LABS: CREATINE KINASE MB < 0.22 ng/mL (<4.55); TROPONIN I < 0.012 ng/mL
[2018-07-15] MEDS: IPRATROPIUM/ALBUTEROL 0.5-2.5 MG/3 ML AMPUL NEB SCH (08:56)
[2018-07-15] MEDS: CLOPIDOGREL BISULFATE 75 MG TABLET PO SCH (10:06)
[2018-07-15] MEDS: NICOTINE 21 MG/24 HR PATCH.TD24 TD SCH (10:06)
[2018-07-15] MEDS: FOLIC ACID 1 MG TABLET PO SCH (10:06)
[2018-07-15] MEDS: PANTOPRAZOLE SODIUM 40 MG TABLET.DR PO SCH (10:06)
[2018-07-15] MEDS: GABAPENTIN 100 MG CAPSULE PO SCH (10:06)
[2018-07-15] MEDS: TAMSULOSIN HCL 0.4 MG CAP.SR.24H PO SCH (10:06)
[2018-07-15] MEDS: SERTRALINE HCL 50 MG TABLET PO SCH (10:06)
[2018-07-15] MEDS: ASPIRIN 81 MG TABLET, CHEWABLE PO SCH (10:06)
[2018-07-15] MEDS: SUCRALFATE 1 GM TABLET PO SCH ×2 (10:06→13:51)
[2018-07-15] MEDS: ATENOLOL 50 MG TABLET PO SCH (10:08)
--- NOTE | 2018-07-15 12:17 | PDOC TRANSFER SUMMARY ---
General - Admit/Disc Date/PCP Admission Date/Primary Care Provider: 07/05/18 23:57 GEORGE GAYTAN, Discharge Date: 07/15/18 - Discharge Diagnosis (1) Acute ischemic multifocal multiple vascular territories stroke Is this a current diagnosis for this admission?: Yes (2) Alcohol dependence Is this a current diagnosis for this admission?: Yes (3) Aphasia Is this a current diagnosis for this admission?: Yes (4) Atrial fibrillation Is this a current diagnosis for this admission?: Yes (5) Tobacco dependence Is this a current diagnosis for this admission?: Yes - Additional Information Resuscitation Status: Full Code Home Medications: Amlodipine Besylate [Norvasc 10 mg Tablet] 10 mg PO DAILY 07/06/18 Atenolol [Tenormin 100 mg Tablet] 100 mg PO DAILY 07/06/18 Atorvastatin Calcium [Lipitor 40 mg Tablet] 40 mg PO DAILY 07/06/18 Buspirone HCl [Buspar 5 mg Tablet] 5 mg PO BID 07/06/18 Folic Acid [Folvite 1 mg Tablet] 1 mg PO DAILY 07/06/18 Furosemide [Lasix 40 mg Tablet] 40 mg PO BID 07/06/18 Gabapentin [Neurontin] 600 mg PO BID 07/06/18 Hydrocodone/Acetaminophen [Rowe 10-325 mg Tablet] 1 tab PO Q4 07/06/18 Lidocaine [Lidoderm 5% (700 mg) Transdermal Patch] 3 patch TP DAILY 07/06/18 Oxymorphone HCl [Oxymorphone HCl ER] 10 mg PO Q12 07/06/18 Pantoprazole Sodium [Protonix [address] Tablet] 40 mg PO DAILY 07/06/18 Pregabalin [Lyrica 75 mg Capsule] 75 mg PO Q12 07/06/18 Sucralfate [Carafate 1 gm Tablet] 1 gm PO QID 07/06/18 Tamsulosin HCl [Flomax] 0.8 mg PO DAILY 07/06/18 Atorvastatin Calcium [Lipitor 80 mg Tablet] 80 mg PO QHS tablet 07/15/18 Clopidogrel Bisulfate [Plavix 75 mg Tablet] 75 mg PO DAILY tablet 07/15/18 Folic Acid [Folvite 1 mg Tablet] 1 mg PO DAILY tablet 07/15/18 Gabapentin [Neurontin 100 mg Capsule] 100 mg PO Q12 capsule 07/15/18 Magnesium Hydroxide [Milk of Magnesia 30 ml Udcup] 30 ml PO HSP PRN udc 07/15/18 Nicotine [Nicoderm 21 mg/24 Hr Transderm Patch] 1 each TD DAILY patch.td24 07/15/18 Pantoprazole Sodium [Protonix [address] Tablet] 40 mg PO BID tablet.dr 07/15/18 Sertraline HCl [Zoloft 50 mg Tablet] 25 mg PO DAILY tablet 07/15/18 Tamsulosin HCl [Flomax 0.4 mg Cap.sr] 0.4 mg PO DAILY cap.sr.24h 07/15/18 History of Present Illness Admission Date/PCP: 07/05/18 23:57 GEORGE GAYTAN DO History of Present Illness: HOLLI PANDEY is a 72 year old male with a past medical history of atrial fibrillation without anticoagulation, dyslipidemia, hypertension, zoster, chronic bronchitis, pancreatitis and alcohol dependence. Patient presents to the emergency room after 2 days of altered mental status described as confusion, difficulty with speech and understanding. In the emergency room he has hypotension, expressive and receptive aphasia, MRI significant for acute and subacute left-sided CVA. He receives aspirin and referred to the hospitalist for admission. Family is unaware of previous CVA Hospital Course Hospital Course: HOLLI PANDEY is a 72 year old male with a past medical history of atrial fibrillation without anticoagulation, dyslipidemia, hypertension, zoster, chronic bronchitis, pancreatitis and alcohol dependence who was admitted 07/05/2018 for acute ischemic multifocal vascular territory stroke. SHERRY was done at [facility] to evaluate for intracardiac thrombus, results were negative. Patient presented with report of 3 days of expressive aphasia and odd behaviors. Head CT demonstrated Mild periventricular and patchy subcortical white matter low attenuation. Follow-up MRI showed findings compatible with multifocal acute infarcts th roughout the L circumflex hemisphere in an MCA distribution. Hyperintense T1 signal located about the left M2 segment concerning for intraluminal thrombus. Carotid Doppler showed poor visualization of the left carotid vessel but with extensive plaque and diminished waveforms suspicious for high-grade stenosis. No hemodynamically significant stenosis on the right. Echocardiogram revealed LVEF 50-60%; No clear intra-cardiac source of thrombus. Head and neck CTA demonstrated <50% occlusion of the right ICA, 100% occlusion of the left ICA with cross-filling of the left system via patent anterior communicator. Troponins are negative x3. Per family, patient had recently been diagnosed with paroxysmal AFIB. He was scheduled to have a follow-up appointment for event monitor sometime this month. Had not yet started chronic anticoagulation therapy. HAS-BLED score is 4 points; 8.9% yearly major bleeding event risk. [id number] score is 4 points; 4.8 yearly CVA event. Relative stroke and bleeding risks were reviewed with family members. Do not recommend anticoagulation due to patient's heavy ETOH use and his propensity for falling Dr. Boubacar Jon consulted regarding the neck CTA results. Dr. Jon advises that the patient would not be a candidate for carotid endarterectomy at this time; recommends neurology consultation. Previous provider called [facility] and spoke with Dr. Cornelius (neurology). She confirms that there is a 6-hour window for thrombectomy in a patient presenting with his similar findings. As the patient presented after approximately 3 days of symptoms, he was outside the window upon arrival to the emergency department. She recommends dual antiplatelet therapy with aspirin 81 mg and Plavix 75 mg daily. Patient lives alone and cannot return to this environment for safety reasons. At this time the patient requires rehabilitation from his stroke. Plan to send to [facility]. Follow up with PCP in 1-2 weeks. Will need to continue physical therapy. Physical Exam Vital Signs: Temp Pulse Resp BP Pulse Ox 97.9 F 75 16 133/77 H 96 07/15/18 07:42 07/15/18 08:56 07/15/18 08:56 07/15/18 07:42 07/15/18 08:56 Intake & Output 07/14/18 07/15/18 07/16/18 06:59 06:59 06:59 Intake Total 1001.2 1259.2 Output Total 250 Balance 751.2 1259.2 Weight 62.1 kg 61 kg General appearance: PRESENT: no acute distress, well-developed, well-nourished Eye exam: PRESENT: PERRLA, scleral icterus Mouth exam: PRESENT: moist, tongue midline Neck exam: PRESENT: full ROM Respiratory exam: PRESENT: clear to auscultation my, symmetrical, unlabored Cardiovascular exam: PRESENT: RRR Pulses: PRESENT: normal radial pulses, normal dorsalis pedis pul Vascular exam: PRESENT: normal capillary refill GI/Abdominal exam: PRESENT: distended, normal bowel sounds, soft, other - rounded. ABSENT: tenderness Rectal exam: PRESENT: deferred Extremities exam: PRESENT: full ROM - (+) R PRONATOR DRIFT Musculoskeletal exam: PRESENT: ambulatory - WITH WALKER AND 2 PERSON ASSIST, full ROM - R PRONATOR DRIFT Neurological exam: PRESENT: alert, awake, oriented to person, oriented to place. ABSENT: oriented to time, oriented to situation Psychiatric exam: PRESENT: appropriate affect Skin exam: PRESENT: dry, intact, jaundice Results Laboratory Results: 07/15/18 06:38 07/15/18 06:38 07/15/18 07/15/18 06:38 06:38 WBC 6.6 RBC 4.44 Hgb 13.3 L Hct 38.8 MCV 88 MCH 30.0 MCHC 34.3 RDW 15.8 H Plt Count 299 Seg Neutrophils % 61.8 Lymphocytes % 26.2 Monocytes % 9.8 Eosinophils % 1.8 Basophils % 0.4 Absolute Neutrophils 4.1 Absolute Lymphocytes 1.7 Absolute Monocytes 0.6 Absolute Eosinophils 0.1 Absolute Basophils 0.0 Sodium 141.0 Potassium 3.6 Chloride 109 H Carbon Dioxide 23 Anion Gap 9 BUN 14 Creatinine 0.82 Est GFR ( Amer) > 60 Est GFR (Non-Af Amer) > 60 Glucose 94 Calcium 11.0 H Total Bilirubin 0.8 AST 35 ALT 48 Alkaline Phosphatase 156 H Total Protein 6.8 Albumin 3.6 07/05/18 07/05/18 07/05/18 19:14 23:46 23:46 Creatine Kinase 45 L CK-MB (CK-2) 0.31 Troponin I < 0.012 < 0.012 07/06/18 07/06/18 07/06/18 06:03 06:03 11:53 Creatine Kinase 36 L 36 L CK-MB (CK-2) 0.29 Troponin I < 0.012 07/06/18 07/15/18 07/15/18 11:53 06:38 06:38 Creatine Kinase < 20 L CK-MB (CK-2) 0.35 < 0.22 Troponin I < 0.012 < 0.012 Impressions: Chest X-Ray 07/05/18 00:00 IMPRESSION: NO ACUTE RADIOGRAPHIC FINDING IN THE CHEST. Head CT 07/05/18 00:00 IMPRESSION: NORMAL BRAIN CT WITHOUT CONTRAST. EVIDENCE OF ACUTE STROKE: NO. Head MRI 07/05/18 20:24 IMPRESSION: Findings compatible with multifocal acute infarcts throughout the left cerebral hemisphere in an MCA distribution, as above described. No evidence of significant midline shift, mass effect, or intracranial hemorrhage. Hyperintense T1 signal located about the left M2 segment raises the possibility of intraluminal thrombus at this location. copyright 2011 [employer]- All Rights Reserved Carotid Doppler Study 07/06/18 00:00 IMPRESSION: 1. Poor visualization of the left carotid vessels, extensive plaque with diminished waveforms. Suspect high-grade stenosis. If clinically warranted, CTA of the neck vessels may help to better delineate the extent of disease. 2. No hemodynamically significant right internal carotid stenosis. Head CTA 07/06/18 00:00 IMPRESSION: Cross-filling of the left system via patent anterior communicator, as the left carotid is occluded. There is atherosclerotic change of the left middle cerebral vessel with decreased flow on the left compared to the right. Neck CTA 07/06/18 00:00 IMPRESSION: Less than 50% stenosis of the right ICA but extensive plaque at the origin of the ICA. Complete occlusion of the left common carotid artery just distal to the origin. No contrast in the ICA or ECA. Widely patent left vertebral which arises from the aortic arch. Status: Imported from PACS Qualifiers - * PATIENT BEING DISCHARGED WITH ANY OF THE FOLLOWING DIAGNOSIS: Stroke Stroke Pt being discharged on Anti-thrombolytic therapy?: Yes Stroke Pt being discharged on Anti-coagulation therapy?: No Reason(s) for not prescribing Anti-coagulation therapy:: Not indicated - (see discharge summary) Stroke Pt being discharged on Statins?: Yes
--- NOTE | 2018-07-15 12:18 | PDOC PROGRESS REPORT ---
Subjective Progress Note for:: 07/14/18 Subjective:: HOLLI PANDEY is a 72 year old male with a past medical history of atrial fibrillation without anticoagulation, dyslipidemia, hypertension, zoster, chronic bronchitis, pancreatitis and alcohol dependence who was admitted 07/05/2018 for acute ischemic multifocal vascular territory stroke. Nursing staff reports the patient had approximately 4 episodes of diarrhea yesterday. Was noted that the patient is receiving daily MiraLAX and as needed milk of magnesia. MiraLAX was discontinued, milk of magnesia will remain PRN. Patient is waiting to go to [facility]. Needs to be assessed by client services representative of that facility prior to transfer. Reason For Visit: CVA AFIB APHASIA Physical Exam Vital Signs: Temp Pulse Resp BP Pulse Ox 98.3 F 79 16 116/62 96 07/14/18 08:50 07/14/18 08:50 07/14/18 08:50 07/14/18 08:50 07/14/18 08:50 Intake & Output 07/13/18 07/14/18 07/15/18 06:59 06:59 06:59 Intake Total 1181.2 1001.2 Output Total 150 250 Balance 1031.2 751.2 Weight 62.3 kg 62.1 kg General appearance: PRESENT: no acute distress, well-developed, well-nourished Head exam: PRESENT: atraumatic Eye exam: PRESENT: PERRLA, scleral icterus Mouth exam: PRESENT: moist, tongue midline Neck exam: PRESENT: full ROM Respiratory exam: PRESENT: clear to auscultation my, symmetrical, unlabored Cardiovascular exam: PRESENT: RRR - Normal sinus rhythm Pulses: PRESENT: normal radial pulses, normal dorsalis pedis pul Vascular exam: PRESENT: normal capillary refill GI/Abdominal exam: PRESENT: soft. ABSENT: distended, tenderness Rectal exam: PRESENT: deferred Extremities exam: ABSENT: full ROM - Right pronator drift Musculoskeletal exam: PRESENT: ambulatory - With walker and two-person assist. ABSENT: deformity, full ROM - Right pronator drift Neurological exam: PRESENT: alert, awake, oriented to person, oriented to place. ABSENT: oriented to time, oriented to situation Skin exam: PRESENT: dry, intact, jaundice Results Laboratory Results: 07/12/18 05:13 07/09/18 06:34 04/12/19 04/12/19 04/12/19 19:14 23:46 23:46 Creatine Kinase 45 L CK-MB (CK-2) 0.31 Troponin I < 0.012 < 0.012 07/06/18 07/06/18 07/06/18 06:03 06:03 11:53 Creatine Kinase 36 L 36 L CK-MB (CK-2) 0.29 Troponin I < 0.012 07/06/18 11:53 Creatine Kinase CK-MB (CK-2) 0.35 Troponin I < 0.012 Impressions: Chest X-Ray 07/05/18 00:00 IMPRESSION: NO ACUTE RADIOGRAPHIC FINDING IN THE CHEST. Head CT 07/05/18 00:00 IMPRESSION: NORMAL BRAIN CT WITHOUT CONTRAST. EVIDENCE OF ACUTE STROKE: NO. Head MRI 07/05/18 20:24 IMPRESSION: Findings compatible with multifocal acute infarcts throughout the left cerebral hemisphere in an MCA distribution, as above described. No evidence of significant midline shift, mass effect, or intracranial hemorrhage. Hyperintense T1 signal located about the left M2 segment raises the possibility of intraluminal thrombus at this location. copyright 2011 [employer]- All Rights Reserved Carotid Doppler Study 07/06/18 00:00 IMPRESSION: 1. Poor visualization of the left carotid vessels, extensive plaque with diminished waveforms. Suspect high-grade stenosis. If clinically warranted, CTA of the neck vessels may help to better delineate the extent of disease. 2. No hemodynamically significant right internal carotid stenosis. Head CTA 07/06/18 00:00 IMPRESSION: Cross-filling of the left system via patent anterior communicator, as the left carotid is occluded. There is atherosclerotic change of the left middle cerebral vessel with decreased flow on the left compared to the right. Neck CTA 07/06/18 00:00 IMPRESSION: Less than 50% stenosis of the right ICA but extensive plaque at the origin of the ICA. Complete occlusion of the left common carotid artery just distal to the origin. No contrast in the ICA or ECA. Widely patent left vertebral which arises from the aortic arch. Status: Imported from PACS Assessment and Plan - Diagnosis (1) Acute ischemic multifocal multiple vascular territories stroke Is this a current diagnosis for this admission?: Yes Plan: Patient presented with report of 3 days of expressive aphasia and odd behaviors. Head CT demonstrated Mild periventricular and patchy subcortical white matter low attenuation. Follow-up MRI showed findings compatible with multifocal acute infarcts t hroughout the L circumflex hemisphere in an MCA distribution. Hyperintense T1 signal located about the left M2 segment concerning for intraluminal thrombus. Carotid Doppler showed poor visualization of the left carotid vessel but with extensive plaque and diminished waveforms suspicious for high-grade stenosis. No hemodynamically significant stenosis on the right. Echocardiogram revealed LVEF 50-60%; No clear intra-cardiac source of thrombus. Head and neck CTA demonstrated <50% occlusion of the right ICA, 100% occlusion of the left ICA with cross-filling of the left system via patent anterior communicator. Troponins are negative x3, no longer trending Per family, patient had recently been diagnosed with paroxysmal AFIB. He was scheduled to have a follow-up appointment for event monitor sometime this month. Had not yet started chronic anticoagulation therapy. HAS-BLED score is 4 points; 8.9% yearly major bleeding event risk. [id number] score is 4 points; 4.8 yearly CVA event. Relative stroke and bleeding risks were reviewed with family members. Do not recommend anticoagulation due to patient's heavy ETOH use and his propensity for falling Dr. Boubacar Jon consulted regarding the neck CTA results. Dr. Jon advises that the patient would not be a candidate for carotid endarterectomy at this time; recommends neurology consultation. Previous provider called [facility] and spoke with Dr. Cornelius (neurology). She confirms that there is a 6-hour window for thrombectomy in a patient presenting with his similar findings. As the patient presented after approximately 3 days of symptoms, he was outside the window upon arrival to the emergency department. She recommends dual antiplatelet therapy with aspirin 81 mg and Plavix 75 mg daily. Patient is admitted to [facility] on continuous cardiac telemetry. Continue aspirin, Plavix, and statin therapy. Dr. Silvestre Weaver consulted; recommends SNF rehab. Awaiting placement at [facility] PT/OT/ST therapy consultations ordered. Discharge planning consulted. Heparin 5000 units SC every 8 for DVT prophylaxis. (2) Alcohol dependence Qualifiers: Substance use status: in withdrawal Is this a current diagnosis for this admission?: Yes Plan: Patient acknowledges heavy daily EtOH use. No symptoms of withdrawal today. +scleral icterus and mild jaundice IV Ativan as needed for anxiety, agitation, withdrawal symptoms. Daily thiamine and folate supplementation Fall, seizure, and aspiration precautions. (3) Aphasia Is this a current diagnosis for this admission?: Yes Plan: Secondary to #1, speech therapy ordered. Expressive aphasia (4) Atrial fibrillation Qualifiers: Atrial fibrillation type: paroxysmal Qualified Code(s): I48.0 - Paroxysmal atrial fibrillation Is this a current diagnosis for this admission?: Yes Plan: Patient's family reports history of paroxysmal AFIB, was making arrangements to obtain event monitor through his radio mechanic helper (Dr. Easton) prior to CVA. NSR since arrival to [facility] Atenolol 25 mg daily. Daily aspirin and plavix therapy. [facility] negative HAS-BLED score is 4 points; 8.9% yearly major bleeding event risk. [id number] score is 4 points; 4.8% yearly CVA event risk. Patient is not a candidate for anticoagulation due to ETOH history and risk for falls. This has been explained to the family on multiple occasions. They still question medical staff why the patient is not receiving anticoagulation. (5) Tobacco dependence Is this a current diagnosis for this admission?: Yes Plan: Smoking cessation is encouraged, nicotine replacement therapies are provided. - Time Time Spent with patient: 15-24 minutes Medications reviewed and adjusted accordingly: Yes Anticipated discharge: Home - Inpatient Certification Based on my medical assessment, after consideration of the patient's comorbidities, presenting symptoms, or acuity I expect that the services needed warrant INPATIENT care.: Yes I certify that my determination is in accordance with my understanding of Medicare's requirements for reasonable and necessary INPATIENT services [42 CFR 412.3e].: Yes Medical Necessity: Risk of Complication if Not Cared For in Hospital
[2018-07-15 12:51] VITALS: BP 128/79
== END 2018-07-15 14:30 | DRG 66 ==
LOC: ER 19:34 → EH 23:57 → 3W 07-06 00:50
PROVIDERS: ADMIT Internal Medicine; ATTEND Internal Medicine
DX: I63.412 Cerebral infarction due to embolism of left middle cerebral artery (principal); I65.22 Occlusion and stenosis of left carotid artery; R47.01 Aphasia; I48.0 Paroxysmal atrial fibrillation; I10 Essential (primary) hypertension; E78.5 Hyperlipidemia, unspecified; F17.210 Nicotine dependence, cigarettes, uncomplicated; N40.0 Benign prostatic hyperplasia without lower urinary tract symptoms; K21.9 Gastro-esophageal reflux disease without esophagitis; I95.9 Hypotension, unspecified; E87.6 Hypokalemia; E86.0 Dehydration; F10.20 Alcohol dependence, uncomplicated; Y90.0 Blood alcohol level of less than 20 mg/100 ml; Z60.2 Problems related to living alone; I69.320 Aphasia following cerebral infarction; Z79.52 Long term (current) use of systemic steroids; Z79.899 Other long term (current) drug therapy
CPT/HCPCS: 36415; 51701; 70450; 70496; 70498; 70551; 71045; 80048; 80053; 80061; 80307; 81001; 82550; 82553; 82962; 83605; 83735; 84484; 85025; 85027; 87040; 93005; 93010; 93306; 93880; 94640; 96360; 99291; 99292; J1644; J1650; J3411; J3490; J7030; J7050; J7620

== ENCOUNTER → 2018-09-04 | Outpatient (CLI) | payer MEDICARE ==
[2018-09-04 12:59] LABS: APPEARANCE,URINE CLEAR; BILIRUBIN,URINE NEGATIVE (NEGATIVE); COLOR,URINE YELLOW; GLUCOSE, URINE NEGATIVE (NEGATIVE); KETONES,URINE NEGATIVE (NEGATIVE); LEUKOCYTE ESTERASE,URINE NEGATIVE (NEGATIVE); NITRITE,URINE NEGATIVE (NEGATIVE); PROTEIN,URINE NEGATIVE (NEGATIVE); UROBILINOGEN,URINE NEGATIVE mg/dL (<2.0)
[2018-09-04 13:00] LABS: HEMATOCRIT 31.1 % (37.9-51.0); HEMOGLOBIN 10.4 g/dL (13.5-17.0); MEAN CORPUSCULAR HEMOGLOBIN 28.5 pg (27.0-33.4); MEAN CORPUSCULAR HGB CONC 33.4 g/dL (32.0-36.0); MEAN CORPUSCULAR VOLUME 85 fl (80-97); PLATELET COUNT 217 10^3/uL (150-450); RED BLOOD COUNT 3.65 10^6/uL (4.35-5.55); RED CELL DISTRIBUTION WIDTH 16.2 % (11.5-14.0); WHITE BLOOD COUNT 6.2 10^3/uL (4.0-10.5)
[2018-09-04 13:23] LABS: ALANINE AMINOTRANSFERASE 26 U/L (21-72); ALBUMIN 3.8 g/dL (3.5-5.0); ALKALINE PHOSPHATASE 130 U/L (38-126); ANION GAP 8 (5-19); ASPARTATE AMINO TRANSFERASE 19 U/L (17-59); BILIRUBIN,DIRECT 0.3 mg/dL (0.0-0.4); BILIRUBIN,TOTAL 0.8 mg/dL (0.2-1.3); BLOOD UREA NITROGEN 15 mg/dL (7-20); CALCIUM 10.4 mg/dL (8.4-10.2); CARBON DIOXIDE 26 mmol/L (22-30); CHLORIDE 108 mmol/L (98-107); GLUCOSE 99 mg/dL (75-110); POTASSIUM 3.8 mmol/L (3.6-5.0); SODIUM 141.8 mmol/L (137-145); TOTAL PROTEIN 6.9 g/dL (6.3-8.2)
== END ==
LOC: LAB 12:27
PROVIDERS: ATTEND Internal Medicine Cardiovascular Disease
DX: I48.0 Paroxysmal atrial fibrillation (principal); Z79.01 Long term (current) use of anticoagulants; Z79.899 Other long term (current) drug therapy
CPT/HCPCS: 36415; 80048; 80076; 81001; 82272; 85027; 85730

== ENCOUNTER → 2018-09-19 | Outpatient (CLI) | payer MEDICARE, MEDICAID ==
[2018-09-19 12:42] LABS: HEMATOCRIT 27.4 % (37.9-51.0); HEMOGLOBIN 9.2 g/dL (13.5-17.0); MEAN CORPUSCULAR HEMOGLOBIN 27.8 pg (27.0-33.4); MEAN CORPUSCULAR HGB CONC 33.5 g/dL (32.0-36.0); MEAN CORPUSCULAR VOLUME 83 fl (80-97); PLATELET COUNT 314 10^3/uL (150-450); RED CELL DISTRIBUTION WIDTH 16.1 % (11.5-14.0); WHITE BLOOD COUNT 8.6 10^3/uL (4.0-10.5)
== END ==
LOC: OD 11:47
PROVIDERS: ATTEND Physician Assistant
DX: K92.2 Gastrointestinal hemorrhage, unspecified (principal)
CPT/HCPCS: 36415; 85027

== ENCOUNTER 2018-09-23 09:44 | Day surgery (SDC) | payer MEDICARE, MEDICAID ==
[~2018-09-23 09:44] MED LIST: PROPOFOL INJ 200 MG/20 ML VIAL IV ONE
[2018-09-23] MEDS ORDERED: PHENYLEPHRINE HCL INJ/PF 10 MG/1 ML SDV ONE (10:43)
[2018-09-23 11:41] VITALS: BP 101/60
--- NOTE | 2018-09-23 12:32 | Operative Report ---
Operative Report DATE OF SURGERY: 09/23/18 Operative Report: The risks, benefits and alternatives of the procedure including the risk of bleeding, perforation requiring surgery have been explained to the patient in detail and informed consent has been obtained. Patient is taken back to the endoscopy suite and placed in a left, lateral decubital position. Timeout was called. Propofol medication is administered. Rectal examination is done which did not reveal any masses, tears or fissures. An Olympus videoscope was introduced into the patient's rectum. The scope was then carefully advanced all the way to what appears to be an anastomotic site. The cecum was identified by the usual anatomical landmarks including the ileocecal valve as well as the appendiceal office. Photodocumentation is obtained. The scope was then sequentially pulled back via the various segments of the colon including portions of the transverse colon, splenic flexure, descending colon, rectosigmoid and rectal regions of the colon. Retroflexion maneuvers performed. The risks benefits and alternatives of the procedure explained to the patient in detail and informed consent is obtained.A GIF Olympus video scope was inserted into the patient's mouth and hypopharynx ,the esophagus is identified intubated and insufflated, the scope was then advanced through the esophagus stomach and duodenum, retroflexion maneuver is done, the esophagus stomach and first and second portions of the duodenum examined. PREOPERATIVE DIAGNOSIS: Iron deficiency anemia possible GI bleeding. It is noted that patient was advised to continue his anticoagulation by his wood milling machine operator. We had called the patient's sister to inform her as well as the patient she decided that it would be prudent to stop the anticoagulation for the procedure. POSTOPERATIVE DIAGNOSIS: Colon polyp at the anastomosis removed via snare polypectomy and retrieved. Anastomotic site noted to have primary anastomosis between small and large intestine. Internal hemorrhoids. Gastritis, biopsy obtained to rule out Helicobacter pylori. No GI bleeding noted OPERATION: Colonoscopy with snare polypectomy. EGD with biopsy SURGEON: DIRK GASCA ANESTHESIA: LMAC TISSUE REMOVED OR ALTERED: As noted above. COMPLICATIONS: None. ESTIMATED BLOOD LOSS: None. INTRAOPERATIVE FINDINGS: As noted above. PROCEDURE: Patient tolerated the procedure well. No immediate postprocedure complications are noted. Patient is discharged in good condition. Discharge date 09/23/2018. Discharge diet: Regular. Discharge activity: Regular. 2 to 3-week follow-up to discuss findings. Patient is instructed to call the office or proceed to the emergency room should there be any further problems or questions. 3 to 5-year surveillance colonoscopy. No GI bleeding noted. Previous anastomosis noted so it is unclear if terminal ileum had been removed. His anemia could be due to lack of B12 absorption will check B12 levels.
== END 2018-09-23 11:35 | disposition home or self-care (01) ==
LOC: END 09:44
PROVIDERS: ATTEND Internal Medicine Gastroenterology
DX: D12.6 Benign neoplasm of colon, unspecified (principal); K29.50 Unspecified chronic gastritis without bleeding; K64.8 Other hemorrhoids; D50.0 Iron deficiency anemia secondary to blood loss (chronic); I10 Essential (primary) hypertension; Z86.73 Personal history of transient ischemic attack (TIA), and cerebral infarction without residual deficits
CPT/HCPCS: 43239; 45385; 88342 ×2; 88305 ×2; 00813; J2370; J2704; 813

== ENCOUNTER 2018-10-10 10:47 | Emergency (ER) | payer MEDICARE ==
--- NOTE | 2018-10-10 11:47 | ER Document Report ---
ED Medical Screen (RME) - General Chief Complaint: Blood Pressure Problem Stated Complaint: BLOOD PRESSURE ISSUES Time Seen by Provider: 10/10/18 11:35 Primary Care Provider: SHIVA BRIGGS PA-C [Primary Care Provider] - Follow up as needed TRAVEL OUTSIDE OF THE [place] IN LAST 30 DAYS: No - HPI Notes: 10/10/18 11:44 Patient is a 72-year-old male with an extensive medical history of CVA, paroxysmal atrial fibrillation, hypertension, hyperlipidemia, chronic smoker, anemia who presents per the direction of his doctor's office for evaluation of low blood pressure. Patient and his professional engineer state that he usually runs 90s over 60s since having CVA. They noticed that his blood pressure was 70s over 40s/50s in his doctor's office and sent in here for evaluation. Patient states that he has had some lightheadedness, but otherwise feels well. He is eating and drinking without difficulties. He is urinating normally and having normal bowel movements. Denies drug allergies. Patient is on several blood pressure medications and they did try decreasing 2 of them. Denies GUO, fever, changes in behavior/mentation/speech, neck pain, URI, CP, SOB, palpitations, syncope, d yspnea on exertion, abd pain, dysuria, back pain, or rash. I have treated and performed a rapid initial assessment of this patient. A comprehensive ED assessment and evaluation of the patient, analysis of test results and completion of medical decision making process will be conducted by additional ED providers. PHYSICAL EXAMINATION: GENERAL: Well-appearing, well-nourished and in no acute distress. A&Ox3. Answers questions appropriately. LUNGS: Breath sounds clear to auscultation bilaterally and equal. No wheezes rales or rhonchi. HEART: Regular rate and rhythm without murmurs, rubs, gallops. Extremities: No cyanosis, clubbing, or edema b/l. NEUROLOGICAL: Normal speech, normal gait. Cranial nerves grossly intact. PSYCH: Normal mood, normal affect. - Related Data Allergies/Adverse Reactions: No Known Allergies Allergy (Verified 10/10/18 10:51) Past Medical History - Social History Frequency of alcohol use: None Drug Abuse: None - Past Medical History Cardiac Medical History: Reports: Hx Atrial Fibrillation, Hx Hypercholesterolemia, Hx Hypertension Denies: Hx Coronary Artery Disease, Hx Heart Attack Pulmonary Medical History: Reports: Hx Bronchitis Denies: Hx Asthma, Hx COPD, Hx Pneumonia, Hx Tuberculosis Neurological Medical History: Reports: Hx Cerebrovascular Accident - JUNE 2018. Denies: Hx Seizures Renal/ Medical History: Reports: Hx Benign Prostatic Hyperplasia. 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
--- NOTE | 2018-10-10 12:26 | RADIOLOGY REPORT (SQ) ---
EXAM DESCRIPTION: CHEST SINGLE VIEW COMPLETED DATE/TIME: 10/10/2018 12:12 pm REASON FOR STUDY: hypotensive COMPARISON: None. EXAM PARAMETERS: NUMBER OF VIEWS: One view. TECHNIQUE: Single frontal radiographic view of the chest acquired. RADIATION DOSE: NA LIMITATIONS: None. FINDINGS: LUNGS AND PLEURA: No opacities, masses or pneumothorax. No pleural effusion. MEDIASTINUM AND HILAR STRUCTURES: No masses. Contour normal. HEART AND VASCULAR STRUCTURES: Heart normal in size. Normal vasculature. BONES: No acute findings. HARDWARE: None in the chest. OTHER: No other significant finding. IMPRESSION: NO ACUTE RADIOGRAPHIC FINDING IN THE CHEST. TECHNICAL DOCUMENTATION: JOB ID: [id number] [employer]- All Rights Reserved Reading location - IP/workstation name: [email or web address]
[2018-10-10] MEDS: NORMAL SALINE 1000 ML 1,000 ML IV PRN ×2 (12:28→14:23)
[2018-10-10 12:41] LABS: ABSOLUTE EOSINOPHILS # (AUTO) 0.4 10^3/uL (0.0-0.6); ABSOLUTE LYMPHOCYTES (AUTO) 2.1 10^3/uL (0.5-4.7); ABSOLUTE MONOCYTES (AUTO) 0.8 10^3/uL (0.1-1.4); ABSOLUTE NEUT (AUTO) 4.8 10^3/uL (1.7-8.2); BASOPHILS % (AUTO) 0.3 % (0-2); EOSINOPHILS % (AUTO) 4.6 % (0-6); HEMATOCRIT 28.9 % (37.9-51.0); HEMOGLOBIN 9.6 g/dL (13.5-17.0); LYMPHOCYTES % (AUTO) 26.4 % (13-45); MEAN CORPUSCULAR HEMOGLOBIN 28.4 pg (27.0-33.4); MEAN CORPUSCULAR HGB CONC 33.2 g/dL (32.0-36.0); MEAN CORPUSCULAR VOLUME 86 fl (80-97); MONOCYTES % (AUTO) 9.8 % (3-13); RED BLOOD COUNT 3.38 10^6/uL (4.35-5.55); RED CELL DISTRIBUTION WIDTH 19.1 % (11.5-14.0); SEGMENTED NEUTROPHILS % (AUTO) 58.9 % (42-78); TOTAL CELLS COUNTED % (AUTO) 100 %; WHITE BLOOD COUNT 8.1 10^3/uL (4.0-10.5)
--- NOTE | 2018-10-10 12:43 | EKG REPORT ---
SEVERITY:- ABNORMAL ECG - SINUS RHYTHM VENTRICULAR PREMATURE COMPLEX FIRST DEGREE AV BLOCK : Confirmed by: Sunday Easton MD 10-Oct-2018 12:43:19
[2018-10-10 12:59] LABS: ALANINE AMINOTRANSFERASE 19 U/L (21-72); ALKALINE PHOSPHATASE 136 U/L (38-126); ANION GAP 9 (5-19); ASPARTATE AMINO TRANSFERASE 31 U/L (17-59); BILIRUBIN,DIRECT 0.3 mg/dL (0.0-0.4); BILIRUBIN,TOTAL 0.5 mg/dL (0.2-1.3); BLOOD UREA NITROGEN 18 mg/dL (7-20); CALCIUM 10.2 mg/dL (8.4-10.2); CARBON DIOXIDE 26 mmol/L (22-30); CHLORIDE 107 mmol/L (98-107); GLUCOSE 90 mg/dL (75-110); POTASSIUM 3.9 mmol/L (3.6-5.0); TOTAL PROTEIN 7.3 g/dL (6.3-8.2)
[2018-10-10 13:11] LABS: PLATELET COUNT 204 10^3/uL (150-450)
--- NOTE | 2018-10-10 15:36 | ER Document Report ---
ED Blood Pressure Problem - General Chief Complaint: Blood Pressure Problem Stated Complaint: BLOOD PRESSURE ISSUES Time Seen by Provider: 10/10/18 11:35 Primary Care Provider: SHIVA BRIGGS PA-C [Primary Care Provider] - Follow up as needed Notes: 72-year-old male emergency department chief complaint of low blood pressure. Patient was seen at rn surgery office today for follow-up after colonoscopy and work-up last week which was normal. His blood pressure was noted to be low. Patient was asymptomatic. Was transferred here. Blood pressure currently has been running in the 90s systolic according to his doctor daughter. Patient has had recent colonoscopy and work-up but had not had any bleeding rectally. Has not noticed any black tarry stools or other symptoms. Patient is on about 3 different blood pressure medications. TRAVEL OUTSIDE OF THE [place] IN LAST 30 DAYS: No - HPI Patient complains to provider of: Low blood pressure Onset: Just prior to arrival Onset/Duration: Gradual Quality of pain: No pain Severity: None Pain Level: Denies - Related Data Allergies/Adverse Reactions: No Known Allergies Allergy (Verified 10/10/18 10:51) Past Medical History - General Information source: Patient, Relative - Social History Smoking Status: Former Smoker Frequency of alcohol use: None Drug Abuse: None Lives with: Family Family History: CAD, Malignancy Patient has suicidal ideation: No Patient has homicidal ideation: No - Past Medical History Cardiac Medical History: Reports: Hx Atrial Fibrillation, Hx Hypercholesterolemia, Hx Hypertension Denies: Hx Coronary Artery Disease, Hx Heart Attack Pulmonary Medical History: Reports: Hx Bronchitis Denies: Hx Asthma, Hx COPD, Hx Pneumonia, Hx Tuberculosis Neurological Medical History: Reports: Hx Cerebrovascular Accident - JUNE 2018. Denies: Hx Seizures Renal/ Medical History: Reports: Hx Benign Prostatic Hyperplasia. 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 - Immunizations Immunizations up to date: Yes Hx Diphtheria, Pertussis, Tetanus Vaccination: No Review of Systems - Review of Systems Notes: Constitutional: denies: Chills, Diaphoresis, Fever, Malaise, Weakness EENT: denies: Eye discharge, Blurred vision, Tearing, Double vision, Nose congestion, Nose discharge, Throat swelling, Mouth pain Cardiovascular: denies: Palpitations, Heart racing, Orthopnea, Dyspnea, Chest pain Respiratory: denies: Cough, Hurts to breathe, Wheezing, Shortness of breath Gastrointestinal: denies: Abdominal pain, Diarrhea, Nausea, Vomiting, Black stools, bright red blood in stool Genitourinary: denies: Burning, Dysuria, Discharge, Frequency, Flank pain, Hematuria Musculoskeletal: denies: Joint pain, Joint swelling, Muscle pain, Muscle stiffness, back pain Hematologic/Lymphatic: denies: Anemia, Easy bleeding, Easy bruising, Blood clots Neurological/Psychological: denies: Confusion, Dementia, Depression, Loss of consciousness Skin: No lesions, no masses, no skin breakdown, no abscesses Physical Exam - Vital signs Vitals: Temp Pulse Resp BP Pulse Ox 97.8 F 71 16 93/49 L 97 10/10/18 10:51 10/10/18 10:51 10/10/18 10:51 10/10/18 10:51 10/10/18 10:51 Interpretation: Hypotensive - General General appearance: Appears well, Alert - HEENT Head: Normocephalic, Atraumatic Eyes: Normal Pupils: PERRL - Respiratory Respiratory status: No respiratory distress Chest status: Nontender Breath sounds: Normal Chest palpation: Normal - Cardiovascular Rhythm: Regular Heart sounds: Normal auscultation Murmur: No - Abdominal Inspection: Normal Distension: No distension Bowel sounds: Normal Tenderness: Nontender Organomegaly: No organomegaly - Back Back: Normal, Nontender - Extremities General upper extremity: Normal inspection, Nontender, Normal color, Normal ROM, Normal temperature General lower extremity: Normal inspection, Nontender, Normal color, Normal ROM, Normal temperature, Normal weight bearing. No: Edd's sign - Neurological Neuro grossly intact: Yes Cognition: Normal Orientation: AAOx4 [place] Coma Scale Eye Opening: Spontaneous [place] Coma Scale Verbal: Oriented [place] Coma Scale Motor: Obeys Commands [place] Coma Scale Total: 15 Speech: Normal Motor strength normal: LUE, RUE, LLE, RLE Sensory: Normal - Psychological Associated symptoms: Normal affect, Normal mood - Skin Skin Temperature: Warm Skin Moisture: Dry Skin Color: Normal Course - Re-evaluation Re-evalutation: 10/10/18 15:35 Laboratory 10/10/18 10/10/18 10/10/18 12:22 12:22 12:22 WBC 8.1 RBC 3.38 L Hgb 9.6 L Hct 28.9 L MCV 86 MCH 28.4 MCHC 33.2 RDW 19.1 H Plt Count 204 Seg Neutrophils % 58.9 Lymphocytes % 26.4 Monocytes % 9.8 Eosinophils % 4.6 Basophils % 0.3 Absolute Neutrophils 4.8 Absolute Lymphocytes 2.1 Absolute Monocytes 0.8 Absolute Eosinophils 0.4 Absolute Basophils 0.0 Sodium 142.0 Potassium 3.9 Chloride 107 Carbon Dioxide 26 Anion Gap 9 BUN 18 Creatinine 1.04 Est GFR ( Amer) > 60 Est GFR (Non-Af Amer) > 60 Glucose 90 Calcium 10.2 Magnesium 2.0 Total Bilirubin 0.5 Direct Bilirubin 0.3 Neonat Total Bilirubin Not Reportable Neonat Direct Bilirubin Not Reportable Neonat Indirect Bili Not Reportable AST 31 ALT 19 L Alkaline Phosphatase 136 H Troponin I Total Protein 7.3 Albumin 4.0 TSH 2.67 10/10/18 14:40 WBC RBC Hgb Hct MCV MCH MCHC RDW Plt Count Seg Neutrophils % Lymphocytes % Monocytes % Eosinophils % Basophils % Absolute Neutrophils Absolute Lymphocytes Absolute Monocytes Absolute Eosinophils Absolute Basophils Sodium Potassium Chloride Carbon Dioxide Anion Gap BUN Creatinine Est GFR ( Amer) Est GFR (Non-Af Amer) Glucose Calcium Magnesium Total Bilirubin Direct Bilirubin Neonat Total Bilirubin Neonat Direct Bilirubin Neonat Indirect Bili AST ALT Alkaline Phosphatase Troponin I < 0.012 Total Protein Albumin TSH Chest X-Ray 10/10/18 11:42 IMPRESSION: NO ACUTE RADIOGRAPHIC FINDING IN THE CHEST. 10/10/18 15:37 Patient's blood pressure was low on arrival. Received IV fluids. Responded well. Review of his labs were done and they were unremarkable. Does have a stable slightly low anemia but according to daughter this is his baseline. Did have a recent GI work-up which was negative so do not feel compelled to do rectal exam and patient refused anyway. Currently he feels fine. I am going to recommend that he half his dose of Lasix, I am also recommending that he decrease his dose of amlodipine. He should keep a close eye on his blood pressure. If this continues to be low then he may need to also decrease his dose of amlodipine or stop some of these medications altogether. This was explained to the daughter as well. At this time feel comfortable discharging in stable condition. - Vital Signs Vital signs: Temp Pulse Resp BP Pulse Ox 97.8 F 71 15 114/69 100 10/10/18 10:51 10/10/18 10:51 10/10/18 14:00 10/10/18 14:00 10/10/18 14:01 - Laboratory Result Diagrams: 10/10/18 12:22 10/10/18 12:22 Laboratory results interpreted by me: 10/10/18 10/10/18 12:22 12:22 RBC 3.38 L Hgb 9.6 L Hct 28.9 L RDW 19.1 H ALT 19 L Alkaline Phosphatase 136 H Discharge - Discharge Clinical Impression: Hypotension due to drugs Condition: Good Disposition: HOME, SELF-CARE Instructions: Hypotension (OM) Additional Instructions: Please take half the dose of your Lasix twice a day. Please decrease your amlodipine to 5 mg daily. If your blood pressure continues to be low then I recommend stopping the Lasix, holding off on the amlodipine altogether, stop the atenolol and then speak with your doctor about further medication adjustments. In the event you develop fever, chills, sweats, chest pain or any other concerns please return immediately for repeat evaluation. Referrals: SHIVA BRIGGS PA-C [Primary Care Provider] - Follow up as needed
[2018-10-10 16:00] VITALS: BP 123/69
== END 2018-10-10 16:01 | disposition home or self-care (01) ==
LOC: ER 10:47
DX: I95.9 Hypotension, unspecified (principal); I10 Essential (primary) hypertension; Z98.890 Other specified postprocedural states; Z87.891 Personal history of nicotine dependence; I48.91 Unspecified atrial fibrillation; Z79.899 Other long term (current) drug therapy
CPT/HCPCS: 93005; 99284; 96360; 96361; 36415; 83735; 84443; 85025; 80053; 84484; 71045; 93010; J7030

== ENCOUNTER → 2018-10-31 | Outpatient (CLI) | payer MEDICAID, MEDICARE ==
[2018-10-31 09:20] LABS: HEMATOCRIT 29.1 % (37.9-51.0); HEMOGLOBIN 9.5 g/dL (13.5-17.0); MEAN CORPUSCULAR HEMOGLOBIN 28.2 pg (27.0-33.4); MEAN CORPUSCULAR HGB CONC 32.6 g/dL (32.0-36.0); MEAN CORPUSCULAR VOLUME 87 fl (80-97); PLATELET COUNT 197 10^3/uL (150-450); RED BLOOD COUNT 3.36 10^6/uL (4.35-5.55); RED CELL DISTRIBUTION WIDTH 18.7 % (11.5-14.0); WHITE BLOOD COUNT 7.4 10^3/uL (4.0-10.5)
[2018-10-31 09:28] LABS: INTERNATIONAL RATION (INR) 0.99; PARTIAL THROMBOPLASTIN TIME 31.3 SEC (23.5-35.8); PROTHROMBIN TIME 13.1 SEC (11.4-15.4)
[2018-10-31 09:42] LABS: ANION GAP 7 (5-19); BLOOD UREA NITROGEN 20 mg/dL (7-20); CALCIUM 10.3 mg/dL (8.4-10.2); CARBON DIOXIDE 27 mmol/L (22-30); CHLORIDE 109 mmol/L (98-107); GLUCOSE 96 mg/dL (75-110)
== END ==
LOC: LAB 09:05
PROVIDERS: ATTEND Internal Medicine Cardiovascular Disease
DX: I48.0 Paroxysmal atrial fibrillation (principal); E78.01 Familial hypercholesterolemia; Z79.899 Other long term (current) drug therapy
CPT/HCPCS: 36415; 80048; 85027; 85610; 85730

== ENCOUNTER → 2019-01-17 | Outpatient (CLI) | payer MEDICARE ==
[2019-01-17 08:30] LABS: HEMATOCRIT 30.5 % (37.9-51.0); HEMOGLOBIN 9.8 g/dL (13.5-17.0); MEAN CORPUSCULAR HEMOGLOBIN 26.2 pg (27.0-33.4); MEAN CORPUSCULAR HGB CONC 32.2 g/dL (32.0-36.0); MEAN CORPUSCULAR VOLUME 82 fl (80-97); PLATELET COUNT 195 10^3/uL (150-450); RED BLOOD COUNT 3.74 10^6/uL (4.35-5.55); RED CELL DISTRIBUTION WIDTH 16.7 % (11.5-14.0); WHITE BLOOD COUNT 7.7 10^3/uL (4.0-10.5)
[2019-01-17 08:49] LABS: ALBUMIN 3.7 g/dL (3.5-5.0); ALKALINE PHOSPHATASE 152 U/L (38-126); ANION GAP 9 (5-19); ASPARTATE AMINO TRANSFERASE 20 U/L (17-59); BILIRUBIN,DIRECT 0.1 mg/dL (0.0-0.4); BILIRUBIN,TOTAL 0.2 mg/dL (0.2-1.3); BLOOD UREA NITROGEN 15 mg/dL (7-20); CALCIUM 10.1 mg/dL (8.4-10.2); CARBON DIOXIDE 24 mmol/L (22-30); CHLORIDE 113 mmol/L (98-107); GLUCOSE 97 mg/dL (75-110); TRIGLYCERIDES 203 mg/dL (<150)
[2019-01-17 09:00] LABS: DIRECT LDL 104 mg/dL (<100)
[2019-01-17 09:05] LABS: VLDL CHOLESTEROL 40.6 mg/dL (10-31)
== END ==
LOC: LAB 08:04
PROVIDERS: ATTEND Internal Medicine Cardiovascular Disease
DX: E78.5 Hyperlipidemia, unspecified (principal); R06.00 Dyspnea, unspecified; I48.0 Paroxysmal atrial fibrillation; I10 Essential (primary) hypertension; D64.9 Anemia, unspecified; Z79.899 Other long term (current) drug therapy
CPT/HCPCS: 36415; 80048; 80061; 80076; 83880; 85027

== ENCOUNTER 2019-11-25 10:44 | Inpatient (IN) | payer MEDICARE ==
[2019-11-25] MEDS ORDERED: ACETAMINOPHEN 325 MG TABLET PO ONE (11:27)
--- NOTE | 2019-11-25 11:32 | ER Document Report ---
ED Medical Screen (RME) - General Chief Complaint: Altered Mental Status Stated Complaint: CONFUSION Time Seen by Provider: 11/25/19 11:13 Primary Care Provider: SHIVA BRIGGS PA-C [Primary Care Provider] - Follow up as needed TRAVEL OUTSIDE OF THE [place] IN LAST 30 DAYS: No - HPI Notes: 11/25/19 11:28 74-year-old male with a history of A. fib, multiple CVAs, CAD, alcoholic induced pancreatitis, hypercholesteremia, GERD cardiac stents (that were placed in December 2018) presents to the emergency room for complaints of increased weakness, fatigue, confusion, declining neuro function for the last 10 days as well as chest pain that started a couple days ago. is the historian and states that pt started on Eliquis 10 days ago and since that time. also states that a family member came to visit them 2 weeks ago who tested positive, they did not realize that until after being around the family member, they tested negative for COVID 10 days ago, but patient started with a fever today. In triage his fever was 101.7 Fahrenheit. No [id number] medications have been given. Patient reports chest pain is substernal and constant. states that patient follows with Dr. Easton, artist's manager and Dr. Hamilton, primary care provider. No COVID exposure per I have greeted and performed a rapid initial assessment of this patient. A comprehensive ED assessment and evaluation of the patient, analysis of test results and completion of the medical decision making process will be conducted by additional ED providers. PHYSICAL EXAMINATION: GENERAL: [place] ill malnourished and in no acute distress. HEAD: Atraumatic, normocephalic. EYES: Pupils equal round extraocular movements intact, conjunctiva are normal. NECK: Normal range of motion CV: s1, s2 regular LUNGS: No respiratory distress Musculoskeletal: Normal range of motion NEUROLOGICAL: Normal speech, Not orientated to year, present with choices, unsure season, realizes he is in the hospital. Noted cook helper right greater than left. Speech is clear. Patient is in a wheelchair SKIN: Warm, Dry, normal turgor, no rashes or lesions noted. - Related Data Allergies/Adverse Reactions: No Known Allergies Allergy (Verified 10/10/18 10:51) Past Medical History - Past Medical History Cardiac Medical History: Reports: Hx Atrial Fibrillation, Hx Hypercholesterolemia, Hx Hypertension Denies: Hx Coronary Artery Disease, Hx Heart Attack Pulmonary Medical History: Reports: Hx Bronchitis Denies: Hx Asthma, Hx COPD, Hx Pneumonia, Hx Tuberculosis Neurological Medical History: Reports: Hx Cerebrovascular Accident - JUNE 2018. Denies: Hx Seizures Renal/ Medical History: Reports: Hx Benign Prostatic Hyperplasia. 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
[2019-11-25 12:24] LABS: ABSOLUTE LYMPHOCYTES (AUTO) 1.4 10^3/uL (0.5-4.7); ABSOLUTE MONOCYTES (AUTO) 0.6 10^3/uL (0.1-1.4); ABSOLUTE NEUT (AUTO) 2.9 10^3/uL (1.7-8.2); BASOPHILS % (AUTO) 0.3 % (0-2); EOSINOPHILS % (AUTO) 0.1 % (0-6); HEMATOCRIT 35.9 % (37.9-51.0); HEMOGLOBIN 12.2 g/dL (13.5-17.0); LYMPHOCYTES % (AUTO) 29.2 % (13-45); MEAN CORPUSCULAR VOLUME 88 fl (80-97); MONOCYTES % (AUTO) 12.1 % (3-13); PLATELET COUNT 147 10^3/uL (150-450); RED BLOOD COUNT 4.06 10^6/uL (4.35-5.55); SEGMENTED NEUTROPHILS % (AUTO) 58.3 % (42-78); TOTAL CELLS COUNTED % (AUTO) 100 %; WHITE BLOOD COUNT 4.9 10^3/uL (4.0-10.5)
[2019-11-25 12:44] LABS: ALBUMIN 3.6 g/dL (3.5-5.0); ALKALINE PHOSPHATASE 104 U/L (38-126); ANION GAP 10 (5-19); ASPARTATE AMINO TRANSFERASE 29 U/L (17-59); BILIRUBIN,DIRECT 0.3 mg/dL (0.0-0.4); BILIRUBIN,TOTAL 0.7 mg/dL (0.2-1.3); BLOOD UREA NITROGEN 20 mg/dL (7-20); C-REACTIVE PROTEIN 50.4 mg/L (<10.0); CALCIUM 9.6 mg/dL (8.4-10.2); CARBON DIOXIDE 25 mmol/L (22-30); CHLORIDE 107 mmol/L (98-107); GLUCOSE 109 mg/dL (75-110); POTASSIUM 4.2 mmol/L (3.6-5.0); TOTAL PROTEIN 6.5 g/dL (6.3-8.2)
--- NOTE | 2019-11-25 12:46 | ER Document Report ---
ED General - General Chief Complaint: Altered Mental Status Stated Complaint: CONFUSION Time Seen by Provider: 11/25/19 11:13 Primary Care Provider: SHIVA BRIGGS PA-C [Primary Care Provider] - Follow up as needed TRAVEL OUTSIDE OF THE [place] IN LAST 30 DAYS: No - HPI Patient complains to provider of: AMS Notes: 74-year-old male with a history of A. fib, multiple CVAs, CAD, alcoholic induced pancreatitis, hypercholesteremia, GERD cardiac stents (that were placed in December 2018) presents to the emergency room for complaints of increased weaknes s, fatigue, confusion, is the historian and states that pt started on Eliquis 10 days ago and since that time. also states that a family member came to visit them 2 weeks ago who tested positive, they did not realize that until after being around the family member, they tested negative for COVID 10 days ago, but patient started with a fever today. In triage his fever was 101.7 Fahrenheit. states that patient follows with Dr. Easton, frame fixer and Dr. Hamilton, primary care provider. - Related Data Allergies/Adverse Reactions: No Known Allergies Allergy (Verified 10/10/18 10:51) Past Medical History - Social History Smoking Status: Unknown if Ever Smoked Family History: CAD, Malignancy Patient has homicidal ideation: No - Past Medical History Cardiac Medical History: Reports: Hx Atrial Fibrillation, Hx Hypercholesterolemia, Hx Hypertension Denies: Hx Coronary Artery Disease, Hx Heart Attack Pulmonary Medical History: Reports: Hx Bronchitis Denies: Hx Asthma, Hx COPD, Hx Pneumonia, Hx Tuberculosis Neurological Medical History: Reports: Hx Cerebrovascular Accident - JUNE 2018. Denies: Hx Seizures Renal/ Medical History: Reports: Hx Benign Prostatic Hyperplasia. 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 HEAD: Atraumatic, normocephalic. EYES: Pupils equal round, sclera anicteric, conjunctiva are normal. ENT: Surgical mask in place. NECK: Normal range of motion, LUNGS: No respiratory Distress, normal chest rise EXTREMITIES: Normal range of motion, No cyanosis. NEUROLOGICAL: sLow to answer questions SKIN: Warm, Dry, Course - Re-evaluation Re-evalutation: 11/25/19 14:15 Ill-appearing 74-year-old male presents encephalopathic, febrile Patient has no white count, profound elevation in C-reactive protein Patient BNP profoundly elevated greater than 5000, requiring 2 L nasal cannula to maintain oxygen saturations CT head unremarkable Remainder of his labs show negative troponin. Patient will be started on antibiotics for possible occult infection Not clear at this time if patient is hypoxic due to COVID, swab pending at this time CABG or CHF. Patient will require admission the hospital for further management - Vital Signs Vital signs: Temp Pulse Resp BP Pulse Ox 99.2 F 72 21 H 159/73 H 94 11/25/19 13:14 11/25/19 12:00 11/25/19 13:21 11/25/19 13:21 11/25/19 13:01 - Laboratory Result Diagrams: 11/25/19 11:58 11/25/19 11:58 Laboratory results interpreted by me: 11/25/19 11/25/19 11/25/19 11:58 11:58 11:58 RBC 4.06 L Hgb 12.2 L Hct 35.9 L RDW 16.0 H Plt Count 147 L ABG pO2 C-Reactive Protein 50.4 H NT-Pro-B Natriuret Pep 3960 H 11/25/19 13:28 RBC Hgb Hct RDW Plt Count ABG pO2 77.8 L C-Reactive Protein NT-Pro-B Natriuret Pep Critical Care Note - Critical Care Note Total time excluding time spent on procedures (mins): 32 Discharge - Discharge Clinical Impression: Encephalopathy Respiratory failure Qualifiers: Chronicity: acute Respiratory failure complication: hypoxia Qualified Code(s): J96.01 - Acute respiratory failure with hypoxia CHF (congestive heart failure) Qualifiers: Heart failure type: unspecified Heart failure chronicity: acute on chronic Qu alified Code(s): I50.9 - Heart failure, unspecified Condition: Stable Disposition: ADMITTED INPATIENT Admitting Provider: Calista (Hospitalist) Unit Admitted: Telemetry Referrals: SHIVA BRIGGS PA-C [Primary Care Provider] - Follow up as needed
--- NOTE | 2019-11-25 12:56 | RADIOLOGY REPORT (SQ) ---
EXAM DESCRIPTION: CHEST SINGLE VIEW IMAGES COMPLETED DATE/TIME: 11/25/2019 12:48 pm REASON FOR STUDY: confusion, AMS x 10 days, fever today COMPARISON: 10/10/2018. NUMBER OF VIEWS: One view. TECHNIQUE: Single frontal radiographic view of the chest acquired. LIMITATIONS: None. FINDINGS: LUNGS AND PLEURA: No opacities, masses or pneumothorax. No pleural effusion. MEDIASTINUM AND HILAR STRUCTURES: No masses. Contour normal. HEART AND VASCULAR STRUCTURES: Heart enlarged without failure. Normal vasculature. BONES: No acute findings. HARDWARE: None in the chest. OTHER: No other significant finding. IMPRESSION: HEART ENLARGED WITHOUT FAILURE. NO OTHER SIGNIFICANT RADIOGRAPHIC FINDING IN THE CHEST. TECHNICAL DOCUMENTATION: JOB ID: [id number] 2010 [employer]- All Rights Reserved Reading location - IP/workstation name: [email or web address]
--- NOTE | 2019-11-25 12:59 | EKG REPORT ---
SEVERITY:- ABNORMAL ECG - ATRIAL FIBRILLATION CONSIDER ANTERIOR INFARCT : Confirmed by: Sunday Easton MD 25-Nov-2019 12:59:16
--- NOTE | 2019-11-25 13:30 | RADIOLOGY REPORT (SQ) ---
EXAM DESCRIPTION: CT HEAD WITHOUT IMAGES COMPLETED DATE/TIME: 11/25/2019 1:14 pm REASON FOR STUDY: confusion, AMS x 10 days, fever today COMPARISON: 07/05/2018 TECHNIQUE: Axial images acquired through the brain without intravenous contrast. Images reviewed wi th bone, brain and subdural windows. Additional sagittal and coronal reconstructions were generated. Images stored on PACS. All CT scanners at this facility use dose modulation, iterative reconstruction, and/or weight based d osing when appropriate to reduce radiation dose to as low as reasonably achievable (ALARA). [facility]: Dose Right [facility]: CareDose [facility]: Dose Right [facility]: Teradose 4D [facility]: [employer] RADIATION DOSE: CT Rad equipment meets quality standard of care and radiation dose reduction techniq ues were employed. CTDIvol: 53.2 mGy. DLP: 1017 mGy-cm. mGy. LIMITATIONS: None. FINDINGS: VENTRICLES: Normal size and contour. CEREBRUM: Encephalomalacia in the left anterior temporal lobe. Possible small right arachnoid cyst i n the middle cranial fossa. Few scattered areas of low density in the white matter most likely chroni c small vessel ischemic changes. CEREBELLUM: No masses. No hemorrhage. No alteration of density. No evidence for acute infarction. EXTRAAXIAL SPACES: No fluid collections. No masses. ORBITS AND GLOBE: No intra- or extraconal masses. Normal contour of globe without masses. CALVARIUM: No fracture. PARANASAL SINUSES: No fluid or mucosal thickening. SOFT TISSUES: No mass or hematoma. OTHER: No other significant finding. IMPRESSION: Prior left temporal lobe infarction. Chronic microvascular ischemia. Possible small ar achnoid cyst in the right middle cranial fossa. EVIDENCE OF ACUTE STROKE: NO. COMMENT: Quality ID # [id number]: Final reports with documentation of one or more dose reduction techniques (e.g., Automated exposure control, adjustment of the mA and/or kV according to patient size, use of iterative reconstruction technique) TECHNICAL DOCUMENTATION: JOB ID: [id number] 2010 [employer]- All Rights Reserved Reading location - IP/workstation name: [email or web address]
[2019-11-25 13:52] LABS: ARTERIAL BLOOD BASE EXCESS -1.3 mmol/L; ARTERIAL BLOOD H2CO3 1.07 mmol/L (1.05-1.35); ARTERIAL BLOOD HCO3 22.6 mmol/L (20-24); ARTERIAL BLOOD O2 SATURATION 95.8 % (94-98); ARTERIAL BLOOD PCO2 35.4 mmHg (35-45); ARTERIAL BLOOD PH 7.42 (7.35-7.45); ARTERIAL BLOOD PO2 77.8 mmHg (80-100); ARTERIAL BLOOD TOTAL CO2 23.7 mmol/L (23-27)
[2019-11-25] MEDS ORDERED: IPRATROPIUM/ALBUTEROL 0.5-2.5 MG/3 ML AMPUL NEB ONE ×3 (14:02)
[2019-11-25] MEDS ORDERED: CEFTRIAXONE 1 GM/D5W RTU 1 GM/50 ML RTUPB IV ONE (14:04)
[2019-11-25 14:11] LABS: ARTERIAL BLOOD FIO2 ROOM AIR
[2019-11-25 15:51] LABS: APPEARANCE,URINE SLIGHTLY-CLOUDY; BILIRUBIN,URINE NEGATIVE (NEGATIVE); COLOR,URINE AMBER; GLUCOSE, URINE NEGATIVE (NEGATIVE); KETONES,URINE NEGATIVE (NEGATIVE); LEUKOCYTE ESTERASE,URINE NEGATIVE (NEGATIVE); NITRITE,URINE NEGATIVE (NEGATIVE); PROTEIN,URINE 100 mg/dL (NEGATIVE); UROBILINOGEN,URINE NEGATIVE mg/dL (<2.0)
[2019-11-25] MEDS ORDERED: ACETAMINOPHEN 325 MG TABLET PO PRN (17:47)
[2019-11-25] MEDS ORDERED: MAGNESIUM HYDROXIDE SUSP 30 ML UDCUP PO PRN (17:47)
[2019-11-25] MEDS ORDERED: IPRATROPIUM/ALBUTEROL 0.5-2.5 MG/3 ML AMPUL NEB PRN (17:47)
[2019-11-25] MEDS ORDERED: PROMETHAZINE HCL INJ 25 MG/1 ML VIAL IV PRN (17:47)
[2019-11-25] MEDS: TAMSULOSIN HCL 0.4 MG CAP.SR.24H PO SCH (18:25)
--- NOTE | 2019-11-25 18:48 | PDOC H&P ---
History of Present Illness Admission Date/PCP: 11/25/19 15:12 SHIVA BRIGGS PA-C Patient complains of: Altered mental status History of Present Illness: HOLLI PANDEY is a 74 year old male Past Medical History Past Medical History: Due to current cognitive state some information was obtained from old records and some information was obtained from the emergency department physician notes Cardiac Medical History: Reports: Atrial Fibrillation, Hyperlipidema, Hypertension Denies: Coronary Artery Disease, Myocardial Infarction Pulmonary Medical History: Reports: Bronchitis Denies: Asthma, Chronic Obstructive Pulmonary Disease (COPD), Pneumonia, Tuberculosis Neurological Medical History: Denies: Seizures Endocrine Medical History: Denies: Diabetes Mellitus Type 2, Hypothyroidism Renal/ Medical History: Denies: Chronic Kidney Disease GI Medical History: Reports: Gastroesophageal Reflux Disease Musculoskeltal Medical History: Reports: Arthritis Psychiatric Medical History: Reports: Alcohol Dependency, Depression, Tobacco Dependency Hematology: Denies: Anemia, Heparin Induced Thrombocytopenia Infectious Medical History: Reports: None Past Surgical History Past Surgical History: Reports: Herniorrhaphy, Other - 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 Social History Information Source: [facility] Records Lives with: Spouse/Significant other Smoking Status: Current Every Day Smoker Cigarettes Packs Per Day: 0.5 Electronic Cigarette use?: No Frequency of Alcohol Use: Heavy Hx Recreational Drug Use: No Drugs: None Hx Prescription Drug Abuse: No - Advance Directive Resuscitation Status: Full Code Surrogate healthcare decision maker:: Patient's Family History Family History: CAD, Malignancy Parental Family History Reviewed: Yes Children Family History Reviewed: Yes Sibling(s) Family History Reviewed.: Yes Medication/Allergy Home Medications: Amlodipine Besylate [Norvasc 10 mg Tablet] 10 mg PO DAILY 07/06/18 Atenolol [Tenormin 100 mg Tablet] 100 mg PO DAILY 07/06/18 Furosemide [Lasix 40 mg Tablet] 40 mg PO BID 07/06/18 Pregabalin [Lyrica 75 mg Capsule] 75 mg PO Q12 07/06/18 Sucralfate [Carafate 1 gm Tablet] 1 gm PO QID 07/06/18 Tamsulosin HCl [Flomax] 0.8 mg PO DAILY 07/06/18 Atorvastatin Calcium [Lipitor 80 mg Tablet] 80 mg PO QHS tablet 07/15/18 Folic Acid [Folvite 1 mg Tablet] 1 mg PO DAILY tablet 07/15/18 Nicotine [Nicoderm 21 mg/24 Hr Transderm Patch] 1 each TD DAILY patch.td24 07/15/18 Pantoprazole Sodium [Protonix [address] Tablet] 40 mg PO BID tablet.dr 07/15/18 Aspirin/Dipyridamole [Aggrenox 25 mg/200 mg Capsule SA] 1 cap.sr PO DAILY 09/23/18 Venlafaxine HCl [Effexor 25 mg Tablet] 25 mg PO DAILY 09/23/18 Allergies/Adverse Reactions: No Known Allergies Allergy (Verified 11/25/19 18:26) Review of Systems ROS unobtainable: Due to mental status Physical Exam Vital Signs: Temp Pulse Resp BP Pulse Ox 98.5 F 61 22 H 126/70 H 90 L 11/25/19 17:59 11/25/19 15:00 11/25/19 17:00 11/25/19 17:00 11/25/19 17:01 Intake & Output 11/24/19 11/25/19 11/26/19 06:59 06:59 06:59 Intake Total 50 Balance 50 Weight 69.5 kg General appearance: PRESENT: cooperative, mild distress, well-developed, well-nourished Head exam: PRESENT: atraumatic, normocephalic Eye exam: PRESENT: conjunctiva pink, EOMI. ABSENT: scleral icterus Ear exam: PRESENT: normal external ear exam. ABSENT: bleeding, drainage Mouth exam: PRESENT: dry mucosa Neck exam: ABSENT: carotid bruit, JVD, lymphadenopathy Respiratory exam: PRESENT: rales - At bases, symmetrical, unlabored. ABSENT: accessory muscle use, rhonchi, tachypnea, wheezes Cardiovascular exam: PRESENT: irregular rhythm. ABSENT: bradycardia, diastolic murmur, systolic murmur, tachycardia GI/Abdominal exam: PRESENT: normal bowel sounds, soft. ABSENT: distended, g uarding, tenderness Rectal exam: PRESENT: deferred Gentrourinary exam: ABSENT: indwelling catheter Extremities exam: ABSENT: pedal edema, +1 edema Musculoskeletal exam: PRESENT: normal inspection. ABSENT: deformity, dislocation Neurological exam: PRESENT: alert, awake, oriented to person, oriented to place - Knew he was in a hospital but could not tell me which , oriented to time - He knew it was November, oriented to situation, other - Despite being able to answer some of the orientation questions he cannot recall much of his history, symptoms or medications and illnesses Psychiatric exam: PRESENT: unusual affect - Affect reflects his frustration with not being able to remember many simple things. ABSENT: agitated, anxious Focused psych exam: ABSENT: delusional, paranoid, restlessness Skin exam: PRESENT: dry, normal color, warm. ABSENT: rash Results Laboratory Results: 11/25/19 11:58 11/25/19 11:58 11/25/19 11/25/19 11/25/19 11:58 11:58 11:58 WBC 4.9 RBC 4.06 L Hgb 12.2 L Hct 35.9 L MCV 88 MCH 30.0 MCHC 34.0 RDW 16.0 H Plt Count 147 L Seg Neutrophils % 58.3 Carbonic Acid HCO3/H2CO3 Ratio ABG pH ABG pCO2 ABG pO2 ABG HCO3 ABG O2 Saturation ABG Base Excess FiO2 Sodium 142.3 Potassium 4.2 Chloride 107 Carbon Dioxide 25 Anion Gap 10 BUN 20 Creatinine 1.11 Est GFR ( Amer) > 60 Glucose 109 Lactic Acid 1.6 Calcium 9.6 Ferritin Total Bilirubin 0.7 AST 29 Alkaline Phosphatase 104 C-Reactive Protein 50.4 H Total Protein 6.5 Albumin 3.6 Urine Color Urine Appearance Urine pH Ur Specific [place] Urine Protein Urine Glucose (UA) Urine Ketones Urine Blood Urine Nitrite Ur Leukocyte Esterase Urine WBC (Auto) Urine RBC (Auto) 11/25/19 11/25/19 11/25/19 13:28 15:22 15:28 WBC RBC Hgb Hct MCV MCH MCHC RDW Plt Count Seg Neutrophils % Carbonic Acid 1.07 HCO3/H2CO3 Ratio 21:1 ABG pH 7.42 ABG pCO2 35.4 ABG pO2 77.8 L ABG HCO3 22.6 ABG O2 Saturation 95.8 ABG Base Excess -1.3 FiO2 ROOM AIR Sodium Potassium Chloride Carbon Dioxide Anion Gap BUN Creatinine Est GFR ( Amer) Glucose Lactic Acid Calcium Ferritin 142.00 Total Bilirubin AST Alkaline Phosphatase C-Reactive Protein Total Protein Albumin Urine Color WALI Urine Appearance SLIGHTLY-CLOUDY Urine pH 5.0 Ur Specific [place] 1.020 Urine Protein 100 H Urine Glucose (UA) NEGATIVE Urine Ketones NEGATIVE Urine Blood SMALL H Urine Nitrite NEGATIVE Ur Leukocyte Esterase NEGATIVE Urine WBC (Auto) 5 Urine RBC (Auto) 1 11/25/19 11/25/19 11:58 11:58 Troponin I 0.020 NT-Pro-B Natriuret Pep 3960 H Impressions: Chest X-Ray 11/25/19 11:22 IMPRESSION: HEART ENLARGED WITHOUT FAILURE. NO OTHER SIGNIFICANT RADIOGRAPHIC FINDING IN THE CHEST. Head CT 11/25/19 11:22 IMPRESSION: Prior left temporal lobe infarction. Chronic microvascular ischemia. Possible small arachnoid cyst in the right middle cranial fossa. EVIDENCE OF ACUTE STROKE: NO. Assessment and Plan - Diagnosis (1) Fever of unknown origin Is this a current diagnosis for this admission?: Yes Plan: The patient cannot have an elevated white blood cell count. He does have a slightly elevated C-reactive protein as well as an elevated LDH. D-dimer is slightly elevated as well. Chest x-ray does not exhibit infiltrates. Blood, urine and throat cultures were all obtained and the patient is being swabbed for Covid-19. Because his underlying comorbidities I did place the patient on azithromycin and ceftriaxone. (2) Acute encephalopathy Is this a current diagnosis for this admission?: Yes Plan: Currently unknown etiology. If we do identify an infectious process this certainly could be the cause. Metabolically there are no significant derangements. I will check an ammonia level. He does have a history of EtOH abuse. Transaminases were not markedly elevated. (3) Longstanding persistent atrial fibrillation Is this a current diagnosis for this admission?: Yes Plan: The patient is on atenolol. We will continue this. Because he is currently in atrial fibrillation I have started apixaban. We will monitor him closely as he is on apixaban and Aggrenox. Currently his rate is well-controlled. He will be monitored on telemetry. (4) CHF (congestive heart failure) Qualifiers: Heart failure type: unspecified Heart failure chronicity: acute on chronic Qualified Code(s): I50.9 - Heart failure, unspecified Is this a current diagnosis for this admission?: Yes Plan: The echocardiogram from 2019 showed a normal ejection fraction and it did not suggest diastolic dysfunction. Because of the cardiomegaly on his chest x-ray and elevated BNP I am going to repeat an echocardiogram. I will likely wait until his COVID serology returns. With his likely history of heart failure I will avoid aggressive IV fluids at this time. Will reassess daily. (5) Tobacco dependence Is this a current diagnosis for this admission?: Yes Plan: He reports that he still smokes 10 cigarettes a day. I have ordered a nicotine patch. (6) Hypertension Qualifiers: Hypertension type: essential hypertension Qualified Code(s): I10 - Essential (primary) hypertension Is this a current diagnosis for this admission?: Yes Plan: Currently on atenolol, amlodipine and furosemide. With a likely history of heart failure he might benefit from an ROGELIO inhibitor or angiotensin receptor melany. We will continue to monitor vital signs and adjust medications accordingly. (7) Person under investigation for COVID-19 Is this a current diagnosis for this admission?: Yes Plan: Potential COVID patient. No obvious etiology for altered mental status. He did have a fever and the C-reactive protein, LDH and d-dimer were elevated ferritin was normal however. Will start on azithromycin as well as vitamin C, vitamin D and will avoid melatonin due to his altered mental status. Await COVID serology. (8) Peptic ulcer disease Is this a current diagnosis for this admission?: Yes Plan: Continue Protonix 40 mg daily and Carafate 1 g before meals and at bedtime (9) Depression Qualifiers: Depression Type: unspecified Qualified Code(s): F32.9 - Major depressive disorder, single episode, unspecified Is this a current diagnosis for this admission?: Yes Plan: Continue low-dose venlafaxine. (10) Encephalomalacia Is this a current diagnosis for this admission?: Yes Plan: The patient has a history of stroke and now has encephalomalacia of the left anterior temporal lobe. This could make him susceptible to altered mental status. In addition he has a history of heavy alcohol use and he could have a Warnicke's encephalopathy. We will add thiamine to his regimen and monitor closely. (11) Hyperlipidemia Qualifiers: Hyperlipidemia type: unspecified Qualified Code(s): E78.5 - Hyperlipidemia, unspecified Is this a current diagnosis for this admission?: Yes Plan: Continue atorvastatin 80 mg at bedtime - Time Time Spent with patient: 35 or more minutes Smoking Cessation Education: 3 to 10 minutes Medications reviewed and adjusted accordingly: Yes Anticipated Discharge Disposition: Home with Home Health Anticipated Discharge Timeframe: Possibly 4 to 5 days
[2019-11-25] MEDS: IPRATROPIUM/ALBUTEROL 0.5-2.5 MG/3 ML AMPUL NEB SCH (19:50)
[2019-11-25] MEDS: ATORVASTATIN CALCIUM 80 MG TABLET PO SCH (21:56)
[2019-11-25] MEDS: PREGABALIN 75 MG CAPSULE PO SCH (21:57)
[2019-11-25] MEDS: ATENOLOL 50 MG TABLET PO SCH (21:57)
[2019-11-25] MEDS: SUCRALFATE 1 GM TABLET PO SCH (21:57)
[2019-11-25] MEDS: AZITHROMYCIN 500 MG in DEXTROSE 5%-WATER 250 ML IV SCH (21:57)
[2019-11-25] MEDS ORDERED: HEPARIN SOD (PORCINE) 5,000 UNIT/ML 1 ML VIAL SUBCUT SCH (22:00)
[2019-11-26] MEDS: IPRATROPIUM/ALBUTEROL 0.5-2.5 MG/3 ML AMPUL NEB SCH ×4 (02:09→20:04)
[2019-11-26] MEDS: PANTOPRAZOLE SODIUM 40 MG TABLET.DR PO SCH ×2 (05:57→16:43)
[2019-11-26 07:03] LABS: HEMATOCRIT 35.1 % (37.9-51.0); HEMOGLOBIN 11.7 g/dL (13.5-17.0); MEAN CORPUSCULAR HEMOGLOBIN 29.3 pg (27.0-33.4); MEAN CORPUSCULAR HGB CONC 33.3 g/dL (32.0-36.0); MEAN CORPUSCULAR VOLUME 88 fl (80-97); PLATELET COUNT 140 10^3/uL (150-450); RED BLOOD COUNT 3.98 10^6/uL (4.35-5.55); RED CELL DISTRIBUTION WIDTH 15.9 % (11.5-14.0); WHITE BLOOD COUNT 5.6 10^3/uL (4.0-10.5)
[2019-11-26 07:29] LABS: ANION GAP 8 (5-19); BLOOD UREA NITROGEN 22 mg/dL (7-20); CALCIUM 9.3 mg/dL (8.4-10.2); CARBON DIOXIDE 24 mmol/L (22-30); CHLORIDE 108 mmol/L (98-107); GLUCOSE 100 mg/dL (75-110); POTASSIUM 3.9 mmol/L (3.6-5.0)
[2019-11-26] MEDS: AMLODIPINE BESYLATE 10 MG TABLET PO SCH (09:18)
[2019-11-26] MEDS: CHOLECALCIFEROL (D3) 1,000 UNIT (25 MCG) TABLET PO SCH (09:18)
[2019-11-26] MEDS: ASPIRIN/DIPYRIDAMOLE 25-200 MG 1 CAP.SR CPMP.12HR PO SCH (09:18)
[2019-11-26] MEDS: SUCRALFATE 1 GM TABLET PO SCH ×4 (09:18→22:12)
[2019-11-26] MEDS: FUROSEMIDE 40 MG TABLET PO SCH ×2 (09:19→19:27)
[2019-11-26] MEDS: ATENOLOL 50 MG TABLET PO SCH ×2 (09:19→22:13)
[2019-11-26] MEDS: ASCORBIC ACID 500 MG TABLET PO SCH ×2 (09:19→19:27)
[2019-11-26] MEDS: PREGABALIN 75 MG CAPSULE PO SCH ×2 (09:19→22:25)
[2019-11-26] MEDS: FOLIC ACID 1 MG TABLET PO SCH (09:19)
[2019-11-26] MEDS: NICOTINE 21 MG/24 HR PATCH.TD24 TD SCH (09:20)
[2019-11-26] MEDS: APIXABAN 5 MG TABLET PO SCH ×2 (09:20→19:27)
[2019-11-26] MEDS: CEFTRIAXONE 1 GM/D5W RTU 1 GM/50 ML RTUPB IV SCH (09:21)
[2019-11-26] MEDS ORDERED: VENLAFAXINE HCL 25 MG TABLET PO SCH (10:00)
[2019-11-26] MEDS ORDERED: THIAMINE HCL 100 MG TABLET PO SCH (10:00)
[2019-11-26] MEDS: TAMSULOSIN HCL 0.4 MG CAP.SR.24H PO SCH (19:27)
--- NOTE | 2019-11-26 22:05 | PDOC PROGRESS REPORT ---
Subjective Progress Note for:: 11/26/19 Subjective:: The patient appears more alert than yesterday. He is on room air and appears to be breathing comfortably. He still has word finding difficulties and this is a late effect of previous stroke. I did talk to his sister and she states that his expressive aphasia was much worse in the past. It is gotten better but he still has word finding difficulties. Reason For Visit: ACUTE MENTAL STATUS CHANGE WITH FEVER CORONARY Physical Exam Vital Signs: Temp Pulse Resp BP Pulse Ox 98.5 F 73 22 H 149/62 H 95 11/26/19 20:52 11/26/19 20:52 11/26/19 20:52 11/26/19 20:52 11/26/19 20:52 Intake & Output 11/25/19 11/26/19 11/27/19 06:59 06:59 06:59 Intake Total 300 250 Balance 300 250 Weight 69.5 kg General appearance: PRESENT: no acute distress, cooperative, well-developed Head exam: PRESENT: atraumatic, normocephalic Ear exam: PRESENT: normal external ear exam. ABSENT: bleeding, drainage Respiratory exam: PRESENT: clear to auscultation my, symmetrical, unlabored, wheezes - Sporadic faint expiratory wheezes. ABSENT: rales, rhonchi, tachypnea Cardiovascular exam: PRESENT: RRR, +S1, +S2. ABSENT: bradycardia, diastolic murmur, irregular rhythm, systolic murmur, tachycardia GI/Abdominal exam: PRESENT: normal bowel sounds, soft. ABSENT: tenderness Rectal exam: PRESENT: deferred Extremities exam: ABSENT: pedal edema Neurological exam: PRESENT: alert, awake, oriented to person, oriented to place, oriented to situation, other - Still with expressive aphasia. Discussion with family reveals that this has been ongoing since his stroke Psychiatric exam: PRESENT: appropriate affect. ABSENT: agitated, anxious Focused psych exam: ABSENT: delusional, paranoid, restlessness Skin exam: PRESENT: dry, warm. ABSENT: rash Results Laboratory Results: 11/26/19 06:45 11/26/19 06:45 11/26/19 11/26/19 11/26/19 06:45 06:45 06:45 WBC 5.6 RBC 3.98 L Hgb 11.7 L Hct 35.1 L MCV 88 MCH 29.3 MCHC 33.3 RDW 15.9 H Plt Count 140 L Sodium 139.7 Potassium 3.9 Chloride 108 H Carbon Dioxide 24 Anion Gap 8 BUN 22 H Creatinine 1.14 Est GFR ( Amer) > 60 Glucose 100 Calcium 9.3 Magnesium 2.3 Ammonia < 8.7 L 11/25/19 11/25/19 11:58 11:58 Troponin I 0.020 NT-Pro-B Natriuret Pep 3960 H Impressions: Chest X-Ray 11/25/19 11:22 IMPRESSION: HEART ENLARGED WITHOUT FAILURE. NO OTHER SIGNIFICANT RADIOGRAPHIC FINDING IN THE CHEST. Head CT 11/25/19 11:22 IMPRESSION: Prior left temporal lobe infarction. Chronic microvascular ischemia. Possible small arachnoid cyst in the right middle cranial fossa. EVIDENCE OF ACUTE STROKE: NO. Assessment and Plan - Diagnosis (1) Fever of unknown origin Is this a current diagnosis for this admission?: Yes Plan: Patient is afebrile. He has been on azithromycin and ceftriaxone. He never had an elevated white blood cell count. COVID serology is still pending. (2) Longstanding persistent atrial fibrillation Is this a current diagnosis for this admission?: Yes Plan: Good rate control. No change in medications. Monitor on telemetry. Continue anticoagulation. (3) Expressive aphasia Is this a current diagnosis for this admission?: Yes Plan: As a late effect of previous stroke. Patient's sister endorses that he is actually better than the acute post stroke phase. (4) CHF (congestive heart failure) Qualifiers: Heart failure type: unspecified Heart failure chronicity: acute on chronic Qualified Code(s): I50.9 - Heart failure, unspecified Is this a current diagnosis for this admission?: Yes Plan: No signs of symptomatic heart failure. Echo in 2019 showed no evidence of decreased ejection fraction or diastolic failure. There was no mention of pulmonary hypertension. X-ray showed no evidence of failure. Decrease furosemide to 40 mg once daily (patient on 20 mg daily at home) as the BUN is trending up slightly (5) Tobacco dependence Is this a current diagnosis for this admission?: Yes Plan: He reports that he still smokes 10 cigarettes a day. I have ordered a nicotine patch. (6) Hypertension Qualifiers: Hypertension type: essential hypertension Qualified Code(s): I10 - Essential (primary) hypertension Is this a current diagnosis for this admission?: Yes Plan: Currently on atenolol, amlodipine and furosemide. With a likely history of heart failure he might benefit from an ROGELIO inhibitor or angiotensin receptor melany. We will continue to monitor vital signs and adjust medications accordingly. (7) Person under investigation for COVID-19 Is this a current diagnosis for this admission?: Yes Plan: Serology pending (8) Peptic ulcer disease Is this a current diagnosis for this admission?: Yes Plan: Continue Protonix and Carafate (9) Depression Qualifiers: Depression Type: unspecified Qualified Code(s): F32.9 - Major depressive disorder, single episode, unspecified Is this a current diagnosis for this admission?: Yes Plan: Continue venlafaxine (10) Encephalomalacia Is this a current diagnosis for this admission?: Yes Plan: From previous stroke. Accounts for expressive aphasia. (11) Hyperlipidemia Qualifiers: Hyperlipidemia type: unspecified Qualified Code(s): E78.5 - Hyperlipidemia, unspecified Is this a current diagnosis for this admission?: Yes Plan: Continue Zetia and atorvastatin (12) Acute encephalopathy Is this a current diagnosis for this admission?: Yes Plan: After further discussion with the patient's sister it is clear that what was perceived as encephalopathy is actually remaining expressive aphasia from previous strokes. This certainly makes more sense. The patient sister is available for further information if the patient cannot provide this. - Time Time Spent with patient: 15-24 minutes Medications reviewed and adjusted accordingly: Yes Anticipated Discharge Disposition: Home, Self Care Anticipated Discharge Timeframe: within 72 hours
[2019-11-26] MEDS: AZITHROMYCIN 500 MG in DEXTROSE 5%-WATER 250 ML IV SCH (22:09)
[2019-11-26] MEDS: ATORVASTATIN CALCIUM 80 MG TABLET PO SCH (22:12)
[2019-11-27] MEDS: IPRATROPIUM/ALBUTEROL 0.5-2.5 MG/3 ML AMPUL NEB SCH ×4 (02:11→20:08)
[2019-11-27] MEDS: PANTOPRAZOLE SODIUM 40 MG TABLET.DR PO SCH ×2 (06:07→09:17)
[2019-11-27] MEDS: SUCRALFATE 1 GM TABLET PO SCH ×4 (08:38→22:53)
[2019-11-27] MEDS: NICOTINE 21 MG/24 HR PATCH.TD24 TD SCH (09:16)
[2019-11-27] MEDS: CEFTRIAXONE 1 GM/D5W RTU 1 GM/50 ML RTUPB IV SCH (09:16)
[2019-11-27] MEDS: FOLIC ACID 1 MG TABLET PO SCH (09:17)
[2019-11-27] MEDS: ASCORBIC ACID 500 MG TABLET PO SCH ×2 (09:17→17:52)
[2019-11-27] MEDS: ASPIRIN/DIPYRIDAMOLE 25-200 MG 1 CAP.SR CPMP.12HR PO SCH (09:17)
[2019-11-27] MEDS: ATENOLOL 50 MG TABLET PO SCH ×2 (09:17→22:53)
[2019-11-27] MEDS: PREGABALIN 100 MG CAPSULE PO SCH ×2 (09:17→17:52)
[2019-11-27] MEDS: APIXABAN 5 MG TABLET PO SCH ×2 (09:17→17:52)
[2019-11-27] MEDS: AMLODIPINE BESYLATE 10 MG TABLET PO SCH (09:17)
[2019-11-27] MEDS: CHOLECALCIFEROL (D3) 1,000 UNIT (25 MCG) TABLET PO SCH (09:17)
[2019-11-27] MEDS: VENLAFAXINE HCL 37.5 MG CAP.SR.24H PO SCH (09:17)
[2019-11-27] MEDS: EZETIMIBE 10 MG TABLET PO SCH (09:18)
[2019-11-27] MEDS: FUROSEMIDE 40 MG TABLET PO SCH (09:18)
--- NOTE | 2019-11-27 16:35 | PDOC PROGRESS REPORT ---
Subjective Progress Note for:: 11/27/19 Subjective:: The patient's results are available today and he is COVID positive. He in fact is resting comfortably on room air. Evidently his roommate is covered positive as well. He was feeling very well and he was asking if he could go home today. Reason For Visit: ACUTE MENTAL STATUS CHANGE WITH FEVER CORONARY Physical Exam Vital Signs: Temp Pulse Resp BP Pulse Ox 98.5 F 72 18 125/68 96 11/27/19 08:00 11/27/19 14:00 11/27/19 14:00 11/27/19 08:00 11/27/19 14:00 Intake & Output 11/26/19 11/27/19 11/28/19 06:59 06:59 06:59 Intake Total 300 750 Output Total 440 Balance 300 310 Weight 69.5 kg 67.3 kg 67.3 kg General appearance: PRESENT: no acute distress, cooperative, well-developed Head exam: PRESENT: atraumatic, normocephalic Ear exam: PRESENT: normal external ear exam. ABSENT: bleeding, drainage Respiratory exam: PRESENT: clear to auscultation my, symmetrical, unlabored. ABSENT: rales, rhonchi, tachypnea, wheezes Cardiovascular exam: PRESENT: RRR, +S1, +S2 GI/Abdominal exam: PRESENT: normal bowel sounds, soft. ABSENT: tenderness Rectal exam: PRESENT: deferred Gentrourinary exam: ABSENT: indwelling catheter Extremities exam: ABSENT: pedal edema Musculoskeletal exam: PRESENT: ambulatory, normal inspection. ABSENT: deformity, dislocation Neurological exam: PRESENT: alert, awake, oriented to person, oriented to situation, aphasic - Expressive aphasia chronic from old stroke Psychiatric exam: PRESENT: appropriate affect. ABSENT: agitated, anxious Focused psych exam: ABSENT: delusional, paranoid, restlessness Results Laboratory Results: 11/26/19 06:45 11/26/19 06:45 11/25/19 12:38 Throat Throat Culture - Final NORMAL DIVINA 11/25/19 15:28 Clean Catch Midstream Urine Culture - Final Enterococcus Faecalis(Group D) 11/25/19 11/25/19 11:58 11:58 Troponin I 0.020 NT-Pro-B Natriuret Pep 3960 H Impressions: Chest X-Ray 11/25/19 11:22 IMPRESSION: HEART ENLARGED WITHOUT FAILURE. NO OTHER SIGNIFICANT RADIOGRAPHIC FINDING IN THE CHEST. Head CT 11/25/19 11:22 IMPRESSION: Prior left temporal lobe infarction. Chronic microvascular ischemia. Possible small arachnoid cyst in the right middle cranial fossa. EVIDENCE OF ACUTE STROKE: NO. Assessment and Plan - Diagnosis (1) COVID-19 virus infection Is this a current diagnosis for this admission?: Yes Plan: The patient's results are back today and he is COVID positive. He is resting currently on room air. He is afebrile now. I told him I would like to observe him for 1 more night and discharge him tomorrow. (2) Fever of unknown origin Is this a current diagnosis for this admission?: Yes Plan: Secondary to COVID infection. Afebrile. (3) Longstanding persistent atrial fibrillation Is this a current diagnosis for this admission?: Yes Plan: Good rate control on current regimen. No changes (4) Expressive aphasia Is this a current diagnosis for this admission?: Yes Plan: For old stroke. Stable (5) CHF (congestive heart failure) Qualifiers: Heart failure type: unspecified Heart failure chronicity: acute on chronic Qualified Code(s): I50.9 - Heart failure, unspecified Is this a current diagnosis for this admission?: Yes Plan: No signs of symptomatic heart failure. Echo in 2019 showed no evidence of decreased ejection fraction or diastolic failure. There was no mention of pulmonary hypertension. X-ray showed no evidence of failure. Decrease furosemide to 40 mg once daily (patient on 20 mg daily at home) as the BUN is trending up slightly (6) Tobacco dependence Is this a current diagnosis for this admission?: Yes Plan: He reports that he still smokes 10 cigarettes a day. I have ordered a nicotine patch. (7) Hypertension Qualifiers: Hypertension type: essential hypertension Qualified Code(s): I10 - Essential (primary) hypertension Is this a current diagnosis for this admission?: Yes Plan: Currently on atenolol, amlodipine and furosemide. With a likely history of heart failure he might benefit from an ROGELIO inhibitor or angiotensin receptor melany. We will continue to monitor vital signs and adjust medications accordingly. (8) Peptic ulcer disease Is this a current diagnosis for this admission?: Yes Plan: Continue Protonix and Carafate (9) Depression Qualifiers: Depression Type: unspecified Qualified Code(s): F32.9 - Major depressive disorder, single episode, unspecified Is this a current diagnosis for this admission?: Yes Plan: Continue current medications. The news of his COVID results did not upset the patient too much since he is feeling quite good. (10) Encephalomalacia Is this a current diagnosis for this admission?: Yes Plan: From previous stroke. Accounts for expressive aphasia. (11) Hyperlipidemia Qualifiers: Hyperlipidemia type: unspecified Qualified Code(s): E78.5 - Hyperlipidemia, unspecified Is this a current diagnosis for this admission?: Yes Plan: Continue Zetia and atorvastatin (12) Acute encephalopathy Is this a current diagnosis for this admission?: Yes Plan: This in fact is more likely the expressive aphasia from his old stroke. He only appears back to baseline. - Time Time Spent with patient: 15-24 minutes Smoking Cessation Education: 3 to 10 minutes Medications reviewed and adjusted accordingly: Yes Anticipated Discharge Disposition: Home, Self Care Anticipated Discharge Timeframe: within 24 hours
[2019-11-27] MEDS: TAMSULOSIN HCL 0.4 MG CAP.SR.24H PO SCH (17:52)
[2019-11-27] MEDS: ATORVASTATIN CALCIUM 80 MG TABLET PO SCH (22:53)
[2019-11-27] MEDS: AZITHROMYCIN 500 MG in DEXTROSE 5%-WATER 250 ML IV SCH (22:53)
[2019-11-28] MEDS: IPRATROPIUM/ALBUTEROL 0.5-2.5 MG/3 ML AMPUL NEB SCH ×4 (01:54→14:02)
[2019-11-28] MEDS: ASCORBIC ACID 500 MG TABLET PO SCH ×2 (09:21→16:59)
[2019-11-28] MEDS: PANTOPRAZOLE SODIUM 40 MG TABLET.DR PO SCH (09:21)
[2019-11-28] MEDS: FUROSEMIDE 40 MG TABLET PO SCH (09:21)
[2019-11-28] MEDS: SUCRALFATE 1 GM TABLET PO SCH ×3 (09:21→15:27)
[2019-11-28] MEDS: FOLIC ACID 1 MG TABLET PO SCH (09:22)
[2019-11-28] MEDS: ATENOLOL 50 MG TABLET PO SCH (09:22)
[2019-11-28] MEDS: ASPIRIN/DIPYRIDAMOLE 25-200 MG 1 CAP.SR CPMP.12HR PO SCH (09:22)
[2019-11-28] MEDS: PREGABALIN 100 MG CAPSULE PO SCH ×2 (09:22→16:59)
[2019-11-28] MEDS: VENLAFAXINE HCL 37.5 MG CAP.SR.24H PO SCH (09:22)
[2019-11-28] MEDS: AMLODIPINE BESYLATE 10 MG TABLET PO SCH (09:22)
[2019-11-28] MEDS: CHOLECALCIFEROL (D3) 1,000 UNIT (25 MCG) TABLET PO SCH (09:22)
[2019-11-28] MEDS: APIXABAN 5 MG TABLET PO SCH ×2 (09:23→16:59)
[2019-11-28] MEDS: NICOTINE 21 MG/24 HR PATCH.TD24 TD SCH ×2 (09:23→09:37)
[2019-11-28] MEDS: EZETIMIBE 10 MG TABLET PO SCH (09:23)
[2019-11-28] MEDS: CEFTRIAXONE 1 GM/D5W RTU 1 GM/50 ML RTUPB IV SCH (09:23)
[2019-11-28 16:24] VITALS: BP 125/68
[2019-11-28] MEDS: TAMSULOSIN HCL 0.4 MG CAP.SR.24H PO SCH (16:59)
--- NOTE | 2019-11-28 17:04 | PDOC DISCHARGE SUMMARY ---
Impression - Admit/DC Date/PCP Admission Date/Primary Care Provider: 11/25/19 15:12 SHIVA BRIGGS PA-C Discharge Date: 11/28/19 - Discharge Diagnosis (1) COVID-19 virus infection Is this a current diagnosis for this admission?: Yes (2) Fever of unknown origin Is this a current diagnosis for this admission?: Yes (3) Longstanding persistent atrial fibrillation Is this a current diagnosis for this admission?: Yes (4) Expressive aphasia Is this a current diagnosis for this admission?: Yes (5) CHF (congestive heart failure) Is this a current diagnosis for this admission?: Yes (6) Tobacco dependence Is this a current diagnosis for this admission?: Yes (7) Hypertension Is this a current diagnosis for this admission?: Yes (8) Peptic ulcer disease Is this a current diagnosis for this admission?: Yes (9) Depression Is this a current diagnosis for this admission?: Yes (10) Encephalomalacia Is this a current diagnosis for this admission?: Yes (11) Hyperlipidemia Is this a current diagnosis for this admission?: Yes (12) Acute encephalopathy Is this a current diagnosis for this admission?: Yes (13) UTI (urinary tract infection) due to Enterococcus Is this a current diagnosis for this admission?: Yes - Additional Information Resuscitation Status: Full Code Discharge Diet: Cardiac Discharge Activity: Activity As Tolerated, Balance Activity w/Rest, Weigh Daily Referrals: SHIVA BRIGGS PA-C [Primary Care Provider] - 12/18/19 11:00 am Prescriptions: Furosemide [Lasix 40 mg Tablet] 40 mg PO DAILY #15 tablet Amlodipine Besylate [Norvasc 10 mg Tablet] 10 mg PO DAILY #15 tablet Ampicillin Trihydrate [Princepen 500 mg Capsule] 1 cap PO QID #40 cap Azithromycin [Zithromax 250 mg Tablet] 250 mg PO QHS #4 tablet Home Medications: Tamsulosin HCl [Flomax] 0.8 mg PO DAILY 07/06/18 Atorvastatin Calcium [Lipitor 80 mg Tablet] 80 mg PO QHS tablet 07/15/18 Apixaban [Eliquis 5 mg Tablet] 5 mg PO BID 11/26/19 Ezetimibe [Zetia 10 mg Tablet] 10 mg PO DAILY 11/26/19 Pantoprazole Sodium [Protonix [address] Tablet] 40 mg PO DAILY 11/26/19 Pregabalin [Lyrica 100 mg Capsule] 100 mg PO BID 11/26/19 Sucralfate [Carafate 1 gm Tablet] 1 gm PO ACHS 11/26/19 Venlafaxine HCl ER [Effexor Xr 37.5 mg Cap.sr] 37.5 mg PO DAILY 11/26/19 Amlodipine Besylate [Norvasc 10 mg Tablet] 10 mg PO DAILY #15 tablet 11/28/19 Ampicillin Trihydrate [Princepen 500 mg Capsule] 1 cap PO QID #40 cap 11/28/19 Apixaban [Eliquis 5 mg Tablet] 5 mg PO BID tablet 11/28/19 Ascorbic Acid [Vitamin C 500 mg Tablet] 500 mg PO BID tablet 11/28/19 Aspirin/Dipyridamole [Aggrenox 25 mg/200 mg Capsule SA] 1 cap.sr PO DAILY cpmp.12hr 11/28/19 Atenolol [Tenormin 50 mg Tablet] 100 mg PO Q12 tablet 11/28/19 Atorvastatin Calcium [Lipitor 80 mg Tablet] 80 mg PO QHS tablet 11/28/19 Azithromycin [Zithromax 250 mg Tablet] 250 mg PO QHS #4 tablet 11/28/19 Cholecalciferol (Vitamin D3) [Vitamin D3 1000 Unit Tablet] 1,000 unit PO DAILY tablet 11/28/19 Folic Acid [Folvite 1 mg Tablet] 1 mg PO DAILY tablet 11/28/19 Furosemide [Lasix 40 mg Tablet] 40 mg PO DAILY #15 tablet 11/28/19 Nicotine [Nicoderm 21 mg/24 Hr Transderm Patch] 1 each TD DAILY patch.td24 11/28/19 Pantoprazole Sodium [Protonix [address] Tablet] 40 mg PO DAILY tablet.dr 11/28/19 Sucralfate [Carafate 1 gm Tablet] 1 gm PO ACHS tablet 11/28/19 Tamsulosin HCl [Flomax 0.4 mg Cap.sr] 0.8 mg PO PCSUPPER cap.sr.24h 11/28/19 History of Present Illiness History of Present Illness: HOLLI PANDEY is a 74 year old male Hospital Course Hospital Course: Rather unremarkable hospital course for COVID patient. He never required oxygen. His mental status improved and a urine culture came back positive for enterococci. He was on antibiotics at the time of admission and with treatment he improved and so possibly the combination of urinary tract infection and COVID infection contributed to his acute encephalopathy. Today he was resting comfortably on room air. He was clinically stable and was safe to discharged home. Physical Exam Vital Signs: Temp Pulse Resp BP Pulse Ox 98.4 F 71 16 125/68 95 11/28/19 16:21 11/28/19 16:21 11/28/19 16:21 11/28/19 16:21 11/28/19 16:21 Intake & Output 11/27/19 11/28/19 11/29/19 06:59 06:59 06:59 Intake Total 750 1230 650 Output Total 440 450 Balance 310 780 650 Weight 67.3 kg 68.3 kg General appearance: PRESENT: no acute distress Respiratory exam: PRESENT: clear to auscultation my, symmetrical, unlabored. ABSENT: rales, rhonchi, tachypnea, wheezes Cardiovascular exam: PRESENT: RRR, +S1, +S2 GI/Abdominal exam: PRESENT: normal bowel sounds, soft. ABSENT: tenderness Neurological exam: PRESENT: alert, awake, oriented to person, oriented to place, oriented to time, oriented to situation, aphasic - Expressive aphasia as a late effect of ischemic stroke Results Laboratory Results: WBC 5.6 10^3/uL (4.0-10.5) 11/26/19 06:45 RBC 3.98 10^6/uL (4.35-5.55) L 11/26/19 06:45 Hgb 11.7 g/dL (13.5-17.0) L 11/26/19 06:45 Hct 35.1 % (37.9-51.0) L 11/26/19 06:45 MCV 88 fl (80-97) 11/26/19 06:45 MCH 29.3 pg (27.0-33.4) 11/26/19 06:45 MCHC 33.3 g/dL (32.0-36.0) 11/26/19 06:45 RDW 15.9 % (11.5-14.0) H 11/26/19 06:45 Plt Count 140 10^3/uL (150-450) L 11/26/19 06:45 Lymph % (Auto) 29.2 % (13-45) 11/25/19 11:58 Dougherty % (Auto) 12.1 % (3-13) 11/25/19 11:58 Eos % (Auto) 0.1 % (0-6) 11/25/19 11:58 Baso % (Auto) 0.3 % (0-2) 11/25/19 11:58 Absolute Neuts (auto) 2.9 10^3/uL (1.7-8.2) 11/25/19 11:58 Absolute Lymphs (auto) 1.4 10^3/uL (0.5-4.7) 11/25/19 11:58 Absolute Monos (auto) 0.6 10^3/uL (0.1-1.4) 11/25/19 11:58 Absolute Eos (auto) 0.0 10^3/uL (0.0-0.6) 11/25/19 11:58 Absolute Basos (auto) 0.0 10^3/uL (0.0-0.2) 11/25/19 11:58 Seg Neutrophils % 58.3 % (42-78) 11/25/19 11:58 D-Dimer 1.42 ug/mL (0.00-0.50) H 11/25/19 16:00 Carbonic Acid 1.07 mmol/L (1.05-1.35) 11/25/19 13:28 HCO3/H2CO3 Ratio 21:1 11/25/19 13:28 ABG pH 7.42 (7.35-7.45) 11/25/19 13:28 ABG pCO2 35.4 mmHg (35-45) 11/25/19 13:28 ABG pO2 77.8 mmHg (80-100) L 11/25/19 13:28 ABG HCO3 22.6 mmol/L (20-24) 11/25/19 13:28 ABG Total CO2 23.7 mmol/L (23-27) 11/25/19 13:28 ABG O2 Saturation 95.8 % (94-98) 11/25/19 13:28 ABG Base Excess -1.3 mmol/L 11/25/19 13:28 FiO2 ROOM AIR 11/25/19 13:28 Sodium 139.7 mmol/L (137-145) 11/26/19 06:45 Potassium 3.9 mmol/L (3.6-5.0) 11/26/19 06:45 Chloride 108 mmol/L (98-107) H 11/26/19 06:45 Carbon Dioxide 24 mmol/L (22-30) 11/26/19 06:45 Anion Gap 8 (5-19) 11/26/19 06:45 BUN 22 mg/dL (7-20) H 11/26/19 06:45 Creatinine 1.14 mg/dL (0.52-1.25) 11/26/19 06:45 Est GFR ( Amer) > 60 (>60) 11/26/19 06:45 Est GFR (MDRD) Non-Af > 60 (>60) 11/26/19 06:45 Glucose 100 mg/dL (75-110) 11/26/19 06:45 Lactic Acid 1.6 mmol/L (0.7-2.1) 11/25/19 11:58 Calcium 9.3 mg/dL (8.4-10.2) 11/26/19 06:45 Magnesium 2.3 mg/dL (1.6-2.3) 11/26/19 06:45 Ferritin 142.00 ng/mL (17.9-464.0) 11/25/19 15:22 Total Bilirubin 0.7 mg/dL (0.2-1.3) 11/25/19 11:58 Direct Bilirubin 0.3 mg/dL (0.0-0.4) 11/25/19 11:58 Neonat Total Bilirubin Not Reportable 11/25/19 11:58 Neonat Direct Bilirubin Not Reportable 11/25/19 11:58 Neonat Indirect Bili Not Reportable 11/25/19 11:58 AST 29 U/L (17-59) 11/25/19 11:58 ALT 19 U/L (<50) 11/25/19 11:58 Alkaline Phosphatase 104 U/L (38-126) 11/25/19 11:58 Ammonia < 8.7 umol/L (9-33) L 11/26/19 06:45 Lactate Dehydrogenase 257 U/L (120-246) H 11/25/19 15:22 Troponin I 0.020 ng/mL 11/25/19 11:58 C-Reactive Protein 50.4 mg/L (<10.0) H 11/25/19 11:58 NT-Pro-B Natriuret Pep 3960 pg/mL (<125) H 11/25/19 11:58 Total Protein 6.5 g/dL (6.3-8.2) 11/25/19 11:58 Albumin 3.6 g/dL (3.5-5.0) 11/25/19 11:58 Urine Color WALI 11/25/19 15:28 Urine Appearance SLIGHTLY-CLOUDY 11/25/19 15:28 Urine pH 5.0 (5.0-9.0) 11/25/19 15:28 Ur Specific [place] 1.020 11/25/19 15:28 Urine Protein 100 mg/dL (NEGATIVE) H 11/25/19 15:28 Urine Glucose (UA) NEGATIVE mg/dL (NEGATIVE) 11/25/19 15:28 Urine Ketones NEGATIVE mg/dL (NEGATIVE) 11/25/19 15:28 Urine Blood SMALL (NEGATIVE) H 11/25/19 15:28 Urine Nitrite NEGATIVE (NEGATIVE) 11/25/19 15:28 Urine Bilirubin NEGATIVE (NEGATIVE) 11/25/19 15:28 Urine Urobilinogen NEGATIVE mg/dL (<2.0) 11/25/19 15:28 Ur Leukocyte Esterase NEGATIVE (NEGATIVE) 11/25/19 15:28 Urine WBC (Auto) 5 /HPF 11/25/19 15:28 Urine RBC (Auto) 1 /HPF 11/25/19 15:28 Urine Bacteria (Auto) TRACE /HPF 11/25/19 15:28 Urine Mucus (Auto) RARE /LPF 11/25/19 15:28 Urine Ascorbic Acid NEGATIVE (NEGATIVE) 11/25/19 15:28 POC Stool Occult Blood NEGATIVE (NEGATIVE) 11/26/19 06:28 COVID-19 Source NASOPHARYNGEAL 11/25/19 15:03 COVID-19 (SUSHILA) DETECTED H 11/25/19 15:03 Group A Strep Rapid NEGATIVE (NEGATIVE) 11/25/19 12:38 11/25/19 11/25/19 11:58 11:58 Troponin I 0.020 NT-Pro-B Natriuret Pep 3960 H Impressions: Chest X-Ray 11/25/19 11:22 IMPRESSION: HEART ENLARGED WITHOUT FAILURE. NO OTHER SIGNIFICANT RADIOGRAPHIC FINDING IN THE CHEST. Head CT 11/25/19 11:22 IMPRESSION: Prior left temporal lobe infarction. Chronic microvascular ischemia. Possible small arachnoid cyst in the right middle cranial fossa. EVIDENCE OF ACUTE STROKE: NO. Plan Health Concerns: COVID 19 infection Plan of Treatment: Complete antibiotic therapy with azithromycin as well as ampicillin for the enterococcus urinary tract infection. Continue vitamin supplements and melatonin. Follow-up with primary care provider. Goals: Complete resolution of urinary tract infection as well as recovery from COVID infection Time Spent: Greater than 30 Minutes Stroke Is this a Stroke Patient?: No Acute Heart Failure - Is this a Heart Failure Patient?: No
[2019-11-28] MEDS ORDERED: AZITHROMYCIN 250 MG TABLET PO SCH (22:00)
== END 2019-11-28 18:25 | disposition home or self-care (01) | DRG 178 ==
LOC: ER 10:44 → EH 15:12 → 3N 11-26 18:38
PROVIDERS: ADMIT Hospitalist; ATTEND Hospitalist
DX: U07.1 COVID-19 (principal); G93.40 Encephalopathy, unspecified; I48.11 Longstanding persistent atrial fibrillation; R47.01 Aphasia; N39.0 Urinary tract infection, site not specified; B95.2 Enterococcus as the cause of diseases classified elsewhere; I25.10 Atherosclerotic heart disease of native coronary artery without angina pectoris; E78.00 Pure hypercholesterolemia, unspecified; K21.9 Gastro-esophageal reflux disease without esophagitis; I50.9 Heart failure, unspecified; I11.0 Hypertensive heart disease with heart failure; K27.9 Peptic ulcer, site unspecified, unspecified as acute or chronic, without hemorrhage or perforation; G93.89 Other specified disorders of brain; N40.0 Benign prostatic hyperplasia without lower urinary tract symptoms; F17.210 Nicotine dependence, cigarettes, uncomplicated; Z86.73 Personal history of transient ischemic attack (TIA), and cerebral infarction without residual deficits
CPT/HCPCS: 36415; 70450; 71045; 80048; 80061; 80076; 81001; 82140; 82270; 82728; 82803; 83605; 83615; 83735; 83880; 84484; 85027; 85379; 86140; 87040; 87070; 87086; 87088; 87186; 87635; 87880; 93005; 93010; 94640; 96365; 99291; C9803; J0456; J0696; J3490; J7060

== ENCOUNTER → 2019-11-25 | Outpatient (CLI) | payer MEDICARE ==
[2019-11-25 10:55] LABS: HEMATOCRIT 36.8 % (37.9-51.0); HEMOGLOBIN 12.4 g/dL (13.5-17.0); MEAN CORPUSCULAR HEMOGLOBIN 29.4 pg (27.0-33.4); MEAN CORPUSCULAR HGB CONC 33.6 g/dL (32.0-36.0); MEAN CORPUSCULAR VOLUME 88 fl (80-97); PLATELET COUNT 145 10^3/uL (150-450); RED BLOOD COUNT 4.21 10^6/uL (4.35-5.55); RED CELL DISTRIBUTION WIDTH 15.9 % (11.5-14.0); WHITE BLOOD COUNT 4.8 10^3/uL (4.0-10.5)
[2019-11-25 11:10] LABS: ALBUMIN 3.9 g/dL (3.5-5.0); ALKALINE PHOSPHATASE 114 U/L (38-126); ASPARTATE AMINO TRANSFERASE 31 U/L (17-59); BILIRUBIN,DIRECT 0.4 mg/dL (0.0-0.4); BILIRUBIN,TOTAL 0.8 mg/dL (0.2-1.3); CHOLESTEROL 97.02 mg/dL (0-200); TOTAL PROTEIN 6.9 g/dL (6.3-8.2); TRIGLYCERIDES 167 mg/dL (<150)
[2019-11-25 11:21] LABS: DIRECT LDL 49 mg/dL (<100)
[2019-11-25 11:22] LABS: VLDL CHOLESTEROL 33.4 mg/dL (10-31)
== END ==
LOC: OD 09:20
PROVIDERS: ATTEND Physician Assistant
DX: E78.5 Hyperlipidemia, unspecified (principal); R42 Dizziness and giddiness; Z79.899 Other long term (current) drug therapy
CPT/HCPCS: 36415; 80061; 80076; 85027

== ENCOUNTER → 2019-12-18 | Outpatient (CLI) | payer MEDICARE ==
[2019-12-18 14:24] LABS: APPEARANCE,URINE CLEAR; BILIRUBIN,URINE NEGATIVE (NEGATIVE); COLOR,URINE COLORLESS; GLUCOSE, URINE NEGATIVE (NEGATIVE); KETONES,URINE NEGATIVE (NEGATIVE); LEUKOCYTE ESTERASE,URINE NEGATIVE (NEGATIVE); NITRITE,URINE NEGATIVE (NEGATIVE); PROTEIN,URINE NEGATIVE (NEGATIVE); URINE SPECIFIC GRAVITY 1.003; UROBILINOGEN,URINE NEGATIVE mg/dL (<2.0)
[2019-12-18 14:47] LABS: ANION GAP 10 (5-19); BLOOD UREA NITROGEN 12 mg/dL (7-20); CARBON DIOXIDE 27 mmol/L (22-30); CHLORIDE 105 mmol/L (98-107); GLUCOSE 93 mg/dL (75-110); POTASSIUM 4.1 mmol/L (3.6-5.0)
== END ==
LOC: OD 13:31
PROVIDERS: ATTEND Physician Assistant
DX: R06.00 Dyspnea, unspecified (principal); R42 Dizziness and giddiness; N39.0 Urinary tract infection, site not specified
CPT/HCPCS: 36415; 80048; 81001; 83880; 87086

== ENCOUNTER → 2019-12-26 | Outpatient (CLI) | payer MEDICARE ==
--- NOTE | 2019-12-26 12:23 | RADIOLOGY REPORT (SQ) ---
EXAM DESCRIPTION: C SP 4 OR 5 VIEWS IMAGES COMPLETED DATE/TIME: 12/26/2019 11:21 am REASON FOR STUDY: NECK PAIN M54.2 CERVICALGIA COMPARISON: None. NUMBER OF VIEWS: Five views. TECHNIQUE: AP, lateral, obliques and odontoid radiographic images acquired of the cervical spine. LIMITATIONS: None. FINDINGS: MINERALIZATION: Normal. ALIGNMENT: Anatomic. VERTEBRAE: Vertebral bodies of normal height. DISCS: No significant osteophytes or sclerosis. Disc height maintained. FORAMINA: No osteophytes or foraminal narrowing. LATERAL AND POSTERIOR ELEMENTS: Hypertrophic facet changes, bilaterally in the mid cervical region. HARDWARE: None in the spine. SOFT TISSUES: No masses or calcifications. Lung apices clear. OTHER: No other significant finding. IMPRESSION: Facet arthropathy. No acute finding. TECHNICAL DOCUMENTATION: JOB ID: [id number] 2010 [employer]- All Rights Reserved Reading location - IP/workstation name: [email or web address]
== END ==
LOC: OD 10:59
PROVIDERS: ATTEND Family Medicine
DX: M47.812 Spondylosis without myelopathy or radiculopathy, cervical region (principal); M54.2 Cervicalgia
CPT/HCPCS: 72050

== ENCOUNTER → 2020-02-04 | Outpatient (CLI) | payer MEDICARE ==
--- NOTE | 2020-02-04 13:13 | RADIOLOGY REPORT (SQ) ---
EXAM DESCRIPTION: C SP 4 OR 5 VIEWS IMAGES COMPLETED DATE/TIME: 02/04/2020 1:01 pm REASON FOR STUDY: NECK PAIN M54.2 CERVICALGIA COMPARISON: 12/26/2019 NUMBER OF VIEWS: Five views. TECHNIQUE: AP, lateral, obliques and odontoid radiographic images acquired of the cervical spine. LIMITATIONS: None. FINDINGS: MINERALIZATION: Normal. ALIGNMENT: Anatomic. VERTEBRAE: Vertebral bodies of normal height. DISCS: No significant osteophytes or sclerosis. Disc height maintained. FORAMINA: No osteophytes or foraminal narrowing. LATERAL AND POSTERIOR ELEMENTS: Facets, lateral masses and spinous processes without significant find ings. HARDWARE: None in the spine. SOFT TISSUES: No masses or calcifications. Lung apices clear. OTHER: No other significant finding. IMPRESSION: No significant findings in the cervical spine. TECHNICAL DOCUMENTATION: JOB ID: [id number] 2010 [employer]- All Rights Reserved Reading location - IP/workstation name: [email or web address]
== END ==
LOC: OD 11:56
PROVIDERS: ATTEND Family Medicine
DX: M54.2 Cervicalgia (principal)
CPT/HCPCS: 72050

== ENCOUNTER → 2020-02-04 | Outpatient (CLI) | payer MEDICARE | LOC: OD 12:08 | PROVIDERS: ATTEND Physician Assistant | DX: R06.00 Dyspnea, unspecified (principal) | CPT/HCPCS: 36415; 83880 ==

== ENCOUNTER → 2020-02-11 | Outpatient (CLI) | payer MEDICARE ==
[2020-02-11 11:04] LABS: HEMOGLOBIN 11.7 g/dL (13.5-17.0); MEAN CORPUSCULAR HGB CONC 33.6 g/dL (32.0-36.0); MEAN CORPUSCULAR VOLUME 89 fl (80-97); PLATELET COUNT 162 10^3/uL (150-450); RED BLOOD COUNT 3.91 10^6/uL (4.35-5.55); RED CELL DISTRIBUTION WIDTH 16.2 % (11.5-14.0); WHITE BLOOD COUNT 7.2 10^3/uL (4.0-10.5)
[2020-02-11 11:40] LABS: ALBUMIN 3.8 g/dL (3.5-5.0); ALKALINE PHOSPHATASE 128 U/L (38-126); ANION GAP 8 (5-19); ASPARTATE AMINO TRANSFERASE 29 U/L (17-59); BILIRUBIN,DIRECT 0.1 mg/dL (0.0-0.4); BILIRUBIN,TOTAL 0.6 mg/dL (0.2-1.3); BLOOD UREA NITROGEN 19 mg/dL (7-20); CALCIUM 10.2 mg/dL (8.4-10.2); CARBON DIOXIDE 26 mmol/L (22-30); CHLORIDE 107 mmol/L (98-107); GLUCOSE 97 mg/dL (75-110); POTASSIUM 4.5 mmol/L (3.6-5.0); TOTAL PROTEIN 6.8 g/dL (6.3-8.2)
== END ==
LOC: OD 09:43
PROVIDERS: ATTEND Physician Assistant
DX: I48.0 Paroxysmal atrial fibrillation (principal); Z79.01 Long term (current) use of anticoagulants; Z79.899 Other long term (current) drug therapy
CPT/HCPCS: 36415; 80048; 80076; 85027; 85730